=== PATIENT | female | born 1935 | race Caucasian/White ===

== ENCOUNTER 2019-07-17 12:27 | Outpatient (CLI) | payer MEDICARE, SELFPAY ==
--- NOTE | 2019-07-17 12:45 | USCV_ITS ---
Leon Jennifer Age: 84 Gender: F : 1935 Exam Date: 07/17/2019 12:47 Ordering Phys: Torrie Wright MD [email or web address] Technologist: Nuha Warren Exam Location: [facility] – [place] Indication: BRUIT Risk Factors: Unknown Previous Vascular Surgery: STENTS PACER Right Brachial BP: / Left Brachial BP: / Right Left Velocity (cm/s) Spectral Plaque Velocity (cm/s) Spectral Plaque Syst/Diast Broadening Syst/Diast Broadening 21.40/ 6.40 Prox CCA 112.30/ 26.80 13.95/ 4.65 Mid CCA 83.00 / 28.05 16.00/ 7.20 Distal CCA 84.20 / 26.80 293.10/84.70 Hetro Prox ICA 460.90/ 132.70 Hetro 384.50/81.20 Hetro Mid ICA 171.40/ 46.70 Hetro 188.00/53.10 Distal ICA 128.50/ 35.10 37.60 Hetro ECA 167.90 Hetro 26.87 ICA/CCA 5.56 Antegrade Vertebral Antegrade 47.30/ 14.90 cm/s 75.10/ 24.50 cm/s Tri Subclavian Bi 216.8 114.8 0 0 FINDINGS Severe atherosclerotic narrowing of both carotid bifurcations. Markedly elevated ICA velocities of 384.5 and 460.9 cm/sec, right and left respectively. Severely elevated ICA/CCA ratios 26.87 and 5.56, right and left respectively. CONCLUSIONS Bilateral 80-99% stenosis of the common carotid befurcations. Dr. Divya Lake MD (Electronically Signed) Final Date: 17 July 2019 13:22 S
== END 2019-07-17 12:28 | disposition home or self-care (01) ==
LOC: US 12:29
PROVIDERS: Family Provider Registered Nurse; PCP Registered Nurse; Visit Provider Internal Medicine Cardiovascular Disease
DX: I65.23 Occlusion and stenosis of bilateral carotid arteries (principal)
CPT/HCPCS: 93880

== ENCOUNTER 2019-07-29 12:59 | Outpatient (CLI) | payer MEDICARE, SELFPAY ==
--- NOTE | 2019-07-29 14:00 | CT_ITS ---
WS: [id number] CT ANGIOGRAM CAROTID ARTERIES HISTORY: bilateral carotid artery stenosis TECHNIQUE: CT angiogram is performed of the carotid arteries. During arterial injection imaging is ob tained from the skull base to the aortic arch in 1.25 mm imaging. Coronal and sagittal reformats are submitted, MIP imaging also reviewed. Additional multiplanar reformats of the carotid arteries are montalvo bmitted. NASCET criteria utilized. All CT scans at [facility] use at least one of these d ose optimization techniques: automated exposure control; mA and/or kV adjustment per patient size (in cludes targeted exams where dose is matched to clinical indication); or iterative reconstruction. CONTRAST: Visipaque 320; 95 mL IV. DLP: 874.65 mGycm COMPARISON: Carotid ultrasound 07/17/2019 Right carotid: Common carotid artery: Arises normally from the innominate. Small amount of circumferential intimal t hickening at the bifurcation. Internal carotid artery: Extremely high-grade stenosis involving the proximal ICA. There is a string sign present. Stenosis greater than 90%. Stenosis is predominantly due to intimal thickening with a s mall amount of calcified plaque. There is additional calcified plaque at the skull base with mild faby nosis approaching 50%. External carotid artery: Patent. Left carotid: Common carotid artery: Arises normally from the aortic arch. No significant stenosis. Internal carotid artery: Heavy intimal thickening is circumferential at the bifurcation. There is an additional high-grade stenosis at the origin of the LEFT ICA. Stenosis greater than 90%. External carotid artery: Patent. Right vertebral artery: Unremarkable. Left vertebral artery: Unremarkable. Arises normally from the left subclavian artery. Subclavian arteries: No stenosis or abnormality identified. Upper thorax: Normal. Thyroid gland: Subcentimeter RIGHT thyroid nodules. Osseous structures: Mild degenerative disc disease at C5-6. Skull base: No destructive lesions. Mild atherosclerosis intracranial carotid arteries. CT/CT angio neck 93543 IMPRESSION: 1. Bilateral high-grade proximal ICA stenosis, greater than 90%. Stenosis pred ominantly due to intimal thickening and soft plaque. Small amount of calcified plaque. Correlates with the recent ultrasound. 2. Mild atherosclerosis intracranial carotid arteries.
[2019-07-29 14:03] LABS: Blood Urea Nitrogen 20 mg/dL (8-23)
[2019-07-29] MEDS: iodixanol 320 mg/mL 100mL Btl IV (14:17)
== END 2019-07-29 13:00 | disposition home or self-care (01) ==
LOC: RADWPI 13:04
PROVIDERS: Family Provider Registered Nurse; PCP Registered Nurse; Visit Provider Internal Medicine Cardiovascular Disease
DX: I65.23 Occlusion and stenosis of bilateral carotid arteries (principal); E78.5 Hyperlipidemia, unspecified
CPT/HCPCS: 70498; 82565; 84520; Q9967

== ENCOUNTER 2019-08-07 12:24 | Inpatient (IN) | payer MEDICARE, SELFPAY ==
--- NOTE | 2019-08-05 10:12 | XR_ITS ---
WS: [id number] PORTABLE CHEST HISTORY: preop for carotid endarterectomy COMPARISON: 11/04/2018 Single lead LEFT subclavian pacer. Mild pulmonary hyperinflation and emphysema. No pneumonia. Normal vasculature. No pleural effusion or pneumothorax. Cardiac size: Mildly enlarged cardiac silhouette. Mediastinum/Aorta: Partially calcified aorta. No osseous abnormality seen. XR/XR chest 1V portable [id number] IMPRESSION: Chronic emphysema and cardiomegaly. No pneumonia.
[2019-08-05 10:36] LABS: Add Urine Microscopic? NO
[2019-08-05 10:44] VITALS: BMI 42.5
--- NOTE | 2019-08-05 11:20 | ANES.PREANE2 ---
Pre-Anesthetic Assessment Pre-Anesthetic Assessment: Height/Weight: Height 1.52 m Weight 98.883 kg Preop Diagnosis: carotid stenosis Proposed Procedure: Operation Date: 08/07/19 08:30 Proposed Procedures p Carotid Endarterectomy 58563/I65.21(Right) - Mani Medina MD Familial anesthetic complications: No trouble Social: Social History: No alcohol Comment: quit smoking on 2002 Exam: Pre-Anes Outpt Exam: alert, oriented x 3, clear to auscultation bilaterally and regular rate & rhythm Airway: Cervical ROM: WNL MP: 2 Additional comments: edentulous Pulmonary: Pulmonary: SOB CV/HEM: CV/HEM: Arrythmia, CAD and HTN Comments: pacemaker cardiomyopathy stents - last placed 2017 : : None reported Hepatic: Hepatic: Hepatitis Comments: Unsure of what type of hepatitis - was back in 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
[2019-08-05 11:40] LABS: Bilirubin Urine Neg (NEGATIVE); Blood Urine Neg (Negative); Glucose Urine UA Norm (Normal); Ketones Urine Negative (Negative); Leukocyte Esterase Urine Negative (Negative); Nitrate Urine Negative (Negative); Protein Urine Neg (Negative); Urine Appearance Clear (CLEAR); Urine Color Straw (Yellow); Urobilinogen Urine Norm (Negative)
[2019-08-05 13:16] LABS: Basophils # 0.1 10^3/uL (0.0-0.1); Basophils % 1.3 %; Eosinophils # 0.1 10^3/uL (0.0-0.8); Eosinophils % 2.6 %; Hematocrit 41.2 % (37.0-47.0); Hemoglobin 12.8 g/dL (11.5-15.3); Lymphocytes % 25.9 %; Mean Corpuscular HGB Conc 31.1 g/dL (30.0-36.0); Mean Corpuscular Hemoglobin 29.9 pg (28.0-34.0); Mean Corpuscular Volume 96.3 fL (81-99); Mean Platelet Volume 11.2 fL (7.4-10.4); Monocytes # 0.3 10^3/uL (0.2-0.9); Monocytes % 6.9 %; Neutrophils # 2.4 10^3/uL (1.8-7.7); Nucleated Red Blood Cells % 0 %; Platelet Count 193 10^3/cmm (130-400); Red Blood Count 4.28 10^6/uL (4.1-5.3); Red Cell Distribution Width 13.5 % (12.1-15.1); White Blood Count 3.8 10^3/uL (4.0-10.0)
[2019-08-05 13:17] LABS: INR 0.98 (0.8-1.2)
[2019-08-05 13:28] LABS: Anion Gap 15.5 (5-19); Blood Urea Nitrogen 28 mg/dL (8-23); Calcium 9.7 mg/dL (8.5-10.5); Carbon Dioxide 26 mmol/L (22-29); Chloride 103 mmol/L (98-107); Glucose 149 mg/dL (65-115); Osmolality Calculated 290 mOsm/kg (285-295); Potassium 4.5 mmol/L (3.5-5.1); Sodium 140 mmol/L (136-145)
[2019-08-07] VITALS (84 sets, daily range): BP systolic 62–115; BP diastolic 24–73; PULSE 58–71; RESP 11–25; TEMP 36.2–36.9; O2SAT 91–100
--- NOTE | 2019-08-07 07:11 | ECG_ITS ---
Measurements Intervals [place] Rate: 0 P: WI: 0 QRS: 0 QRSD: 0 T: 0 QT: 0 QTc: 0 V PACED RHYTHM WITH PVC WARNING: DATA QUALITY MAY AFFECT INTERPRETATION Compared to ECG 11/03/2018 18:50:47 Atrial fibrillation no longer present Myocardial infarct finding no longer present T-wave abnormality no longer present Possible ischemia no longer present Electronically Signed On 08-07-2019 17:44:58 CDT by Samanta Wayne M.D. [id number]
[2019-08-07] MEDS: lidocaine 1% INJ 20 mL INTRADERMA (07:52)
[2019-08-07] MEDS: sodium chloride 0.9% 1,000 ML 30 ML IV (07:52)
--- NOTE | 2019-08-07 08:28 | W.PM.OPSUD ---
Surgery/Procedure H&P Update DATE OF PROCEDURE: August 07, 2019 DATE H&P PERFORMED: 08/03/19 H&P UPDATE INFORMATION: I have reviewed H&P completed within last 30 days, I have examined patient prior to procedure and No changes to prior documentation PREOP DIAGNOSIS: carotid stenosis PRIMARY INDICATION FOR PROCEDURE: High-grade bilateral carotid artery stenosis of greater than 90%, with right ICA being visually greater than 95%. PLANNED PROCEDURE: Operation Date: 08/07/19 08:30 Proposed Procedures p Carotid Endarterectomy 70900/I65.21(Right) - Mani Medina MD
[2019-08-07] MEDS: heparin,porcine 1,000 unit/mL INJ 1 mL 1000 UNIT IRRIGATION (09:24)
[2019-08-07] MEDS: lidocaine 1% INJ 20 mL XX (09:24)
[2019-08-07] MEDS: vancomycin 1,000 MG SDV 1000 MG IRRIGATION (09:24)
--- NOTE | 2019-08-07 09:35 | SUR.OPER ---
Attempted to notify [facility] of surgery start. Unable to reach her at this time.
--- NOTE | 2019-08-07 11:30 | SUR.OPER ---
1125 - Attempted to updated Bridgette again. Still unable to reach her.
[2019-08-07] MEDS: ondansetron 2 mg/ML SDV 2 mL 4 MG IVP ×2 (12:43→13:15)
[2019-08-07] MEDS: lactated ringers 1,000 ML 75 ML IV (12:48)
[2019-08-07] MEDS: fentaNYL 50 mcg/mL INJ 2mL IVP (13:15)
--- NOTE | 2019-08-07 13:45 | PM.OP ---
Operative Report Date of procedure: August 07, 2019 Pre-op Diagnosis: carotid stenosis Post-op diagnosis: same Procedure Done: Right carotid endarterectomy with patch angioplasty Implants: Hemashield patch Specimens removed/disposition: Carotid plaque Surgeon: Mani Medina Anesthesia: General Estimated blood loss (mL): 100 Complications: None: Neurologically intact immediately postop Condition: stable Disposition: ICU Brief History: Pleasant 84-year-old female with high-grade bilateral carotid stenoses of greater than 90% and estimated at 95% or greater on the right side. Because of these high-grade lesions, staged carotid endarterectomies recommended to reduce her statistical risk for spontaneous CVA. Details the risk of the procedure were carefully and frankly discussed with her and her granddaughter. Appropriate consents have been reviewed and signed. Procedure: Ms. Quintero was placed on the OR table and underwent general endotracheal anesthesia with a neurological monitoring endotracheal tube as well as placement of a right radial arterial line. Bihemispheric monitoring pads were placed as well as grounding and sensing pads for nerve conduction evaluation during neck dissection.The entire upper chest and right neck were sterilely prepped and draped. Incision was made along the anterior border of the sternomastoid muscle and carried down to the platysma with cautery. Dissection from this point forward was carried out utilizing Metzenbaum scissors. The internal jugular vein was dissected free and the facial vein was ligated, oversewn, and divided. Dissection was continued down through the ansa cervicalis with preservation of major branches. Minor branches were divided if required to allow for adequate exposure. Nerve conduction evaluation was performed throughout the dissection for protection of the recurrent nerve. We subsequently reached the common carotid artery. Dissection was then continued proximally to distally across the bifurcation. Vessel loops were placed around the common carotid artery, internal carotid artery, and external carotid artery. Distally, the base of the hypoglossal nerve could be identified and was protected. The internal carotid artery disease went fairly high and extended above the level of the mandibular angle. This did require some traction in this region, but great care was taken to minimize pressure to the hypoglossal nerve, which was protected. Care was taken during this dissection to avoid injury to the vagus nerve. The patient was then heparinized with 10,000 units. ACT was measured and confirmed to be therapeutic. The systolic blood pressure was elevated to 160. Following this, in a rapid sequenced fashion, the distal internal carotid artery was clamped followed by clamping of the common carotid artery and external carotid artery. #11 scalpel blade was used to open the common carotid artery proximally. Stone scissors were then utilized to extend this arteriotomy across the distal common carotid artery and ulcerated very stenotic plaque and continue this further at the bifurcation across the calcific plaque in the internal carotid artery until we had reached normal intima. The internal carotid artery clamp was briefly flashed with evidence of brisk back bleeding, therefore we elected not to shunt. It should be noted that bi-hemispheric oximetry was recorded throughout the procedure. Next, a freer elevator was utilized to create a dissection plane the plaque from intima at the proximal portion of the arteriotomy. This was then divided with a #11 scalpel blade. This plaque was then further dissected along the intimal plane proximally to distally across the bifurcation. Utilizing an everting technique, plaque was removed from the external carotid artery with brisk flow. This plaque was then dissected free up the internal carotid artery to a feathered edge. Heparinized saline solution was utilized to remove any loose debris. Next, a Hemashield patch was brought into the field and sewn into position utilizing a running 6-0 Prolene suture, thereby completing our patch angioplasty. At the completion of the patch, the external carotid artery was opened followed by the common carotid artery and finally the internal carotid artery, thereby reestablishing cerebral flow. Areas of extravasation were repaired with 6-0 Prolene suture. After 5 minutes, heparin was reversed with protamine. Hemostasis was confirmed. The wound was irrigated with antibiotic solution. A small, flat, Rai-Watson drain was placed in the wound and connected to bulb suction. Sponge and needle count was correct. The wound was then closed in 2 layers of 3-0 Vicryl suture. Skin was reapproximated in a subcuticular manner with 4-0 Monocryl suture. A pressure dressing was then applied. She was awakened from anesthesia and spontaneous movement of all extremities as well as movement to command was noted. The patient was then transferred to the ICU in stable condition. We did contact her granddaughter by phone at completion of the procedure. Ms. Quintero will be monitored in the ICU for the next 24 hours.
[2019-08-07] MEDS: aspirin 325 mg Tablet PO (14:36)
[2019-08-07] MEDS: ceFAZolin 1,000 MG in sodium chloride 0.9% (plus) 50 ML 100 MG IV ×2 (17:24→23:48)
[2019-08-07] MEDS: sodium chloride 0.9% 1,000 ML 175 ML IV (17:44)
[2019-08-07] MEDS: albumin 12.5 GM/250 ML VIAL IV (20:28)
[2019-08-07] MEDS: HYDROcodone-acetaminophen 5-325 mg Tablet 1 TAB PO (23:49)
[2019-08-08] VITALS (71 sets, daily range): BP systolic 76–126; BP diastolic 26–70; PULSE 59–75; RESP 11–23; TEMP 36.6; O2SAT 89–99
[2019-08-08] MEDS: morphine 4 mg/mL SDV 1 mL 2 MG IVP (01:00)
[2019-08-08] MEDS: sodium chloride 0.9% 1,000 ML 175 ML IV (05:18)
[2019-08-08] MEDS: ceFAZolin 1,000 MG in sodium chloride 0.9% (plus) 50 ML 100 MG IV (07:46)
--- NOTE | 2019-08-08 07:51 | P.DS_ITS ---
Discharge Providers Date of Admission: 08/07/19 12:24 Date of Discharge: August 08, 2019 Attending Provider at Admission: Mani Medina MD Attending Provider at Discharge: Mani Medina MD Primary Care Provider: KENIA Jaquez Diagnoses at Discharge Discharge Diagnosis (1) Bilateral carotid artery stenosis: Status: Acute Problem details: Bilateral high-grade carotid artery stenoses of greater than 90% with greater than 95% stenosis on the right side. Reason for Visit Reason for Visit: Reason For Visit: BLOCKAGE Hospital Course Discharge Summary: Ms. Quintero was evaluated with bilateral carotid artery bruits with resultant duplex suggesting high grade stenosis. Subsequent CTA confirmed greater than 90% carotid stenoses bilaterally with a critical stenosis on the right side with near occlusion. She was carefully evaluated as an outpatient and scheduled for elective admission for planned staged carotid endarterectomies, initially on the right side. She was admitted yesterday and underwent right carotid endarterectomy with patch angioplasty. She was neurologically intact upon emergence from anesthesia. She was convalesced in the ICU where she remained neurologically stable and intact. No swallowing or phonation difficulties. Mild hypotension early postop responded well to fluid challenge. She has no complaints on the first postop day. Low PATRICIA drain output. PATRICIA drain was discontinued. Incision clean and dry. She has progressed well. She will be discharged to home with family support today in stable condition. Physical Exam Const: COMMON NORMALS: oriented x3 Neck/C-Spine: GENERAL: Yes normal visual inspection OTHER: Right neck incision is healing well with out swelling. No erythema or drainage. PATRICIA drain was discontinued. Neuro: COMMON NORMALS: oriented x3, no focal motor deficits and no sensory deficits noted Urinary Catheter Management^: Demarco: Cath Placed During This Visit: yes Reason for Continuing Indwelling Catheter: Accurate Measurement of Urinary Output in Critically Ill Patients Urinary Catheter Date of Insertion: 08/07/19 Urinary Catheter Time of Insertion: 09:10 Discharge Data Data Completed and Pending: Completed Studies During Hospitalization Category Date Time Status XR chest 1V erica ble [id number] Routine Exams 08/05/19 10:12 Completed Pending at discharge Category Date Time Status ABG FULL [Arteria l Blood Gas Full] Routine Lab 08/07/19 08:55 Ordered PRBC [Leukocyte R educed RBC] Routin e Lab 08/06/19 10:12 Results Type and Screen - Cardiac Routine Lab 08/05/19 11:06 Received Type and Screen R outine Lab 08/06/19 10:12 Results Pathology: Surgic al [PTH] Routine Pth 08/07/19 11:37 Received Labs from last 24 hours 08/05/19 11:06 Blood Type A Positive Rho(D) Type Positive Antibody Screen Negative Crossmatch See Detail Vitals: Last Vital Signs Temp 98.4 F 08/07/19 14:10 Pulse 63 08/08/19 07:40 Resp 21 H 08/08/19 07:40 BP 103/54 08/08/19 07:40 Pulse Ox 91 08/08/19 07:40 Discharge Plan Discharge Patient Disposition: Home, Self-Care Condition: Stable Prescriptions: New hydrocodone-acetaminophen 5-325 mg Tablet 1 tab PO Q6H PRN (Reason: Moderate Pain) Qty: 15 RF: 0 aspirin [Adult Low Dose Aspirin] 81 mg tablet,delayed release (DR/EC) 81 mg PO DAILY Qty: 100 RF: 0 Continued clopidogrel 75 mg tablet 75 mg PO DAILY RF: 0 carvedilol 12.5 mg tablet 12.5 mg PO BID RF: 0 Eliquis 2.5 mg tablet 2.5 mg PO BID RF: 0 multivitamin [Multiple Vitamins] Tablet 1 tab PO DAILY RF: 0 diphenhydramine HCl [Allergy (diphenhydramine)] 25 mg capsule 25 mg PO .BEDTIME RF: 0 lisinopril 40 mg tablet 40 mg PO DAILY Qty: 90 RF: 3 simvastatin 40 mg tablet 40 mg PO DAILY Qty: 90 RF: 0 potassium chloride [Klor-Con 10] 10 mEq tablet extended release 10 meq PO DAILY Qty: 90 RF: 0 furosemide 40 mg tablet 40 mg PO DAILY Qty: 90 RF: 3 Discharge Orders: Discharge Order (Routine); Ordered 08/08/19 Ordered By: Mani Medina Referrals: Mani Medina MD [Physician] - 1 week Discharge Diet: Usual diet Discharge Activity: Limit activity as instructed Activity Restrictions/Additional Instructions: No heavy lifting or pulling x2 weeks May remove bandage tomorrow and begin daily showers. No swimming or tub baths x2 weeks Report any fever, local swelling, redness, or drainage. May cover incision as desired. Report any weakness, visual changes, or difficulty speaking. Discharge Attestations Time Spent in Discharge Care*: less than 30 min Specific Discharge Activities: Specific discharge activities: educating patient, discussing with pcp/other providers, documenting/other paperwork and evaluating patient/reviewing data Status at Discharge: Cognitive status at discharge: cognitively intact , Behavioral status at discharge: cooperative , Functional status at discharge: independent ambulation Overall status at discharge: patient is back to baseline Quality Metrics Clinical Quality Measures During this hospital stay, did patient experience: None Coding Level of Care Code 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
[2019-08-08] MEDS: atorvastatin 40 mg Tablet 20 MG PO (10:31)
[2019-08-08] MEDS: lisinopril 20 mg Tablet 40 MG PO (10:31)
[2019-08-08] MEDS: clopidogrel 75 mg Tablet PO (10:32)
[2019-08-08] MEDS: pantoprazole DR 40 mg Tablet PO (10:32)
[2019-08-08] MEDS: HYDROcodone-acetaminophen 5-325 mg Tablet 1 TAB PO (10:32)
[2019-08-08] MEDS: multivitamin therapeutic Tablet 1 TAB PO (10:32)
[2019-08-08] MEDS: FUROsemide 40 mg Tablet PO (10:32)
[2019-08-08] MEDS: carvedilol 12.5 mg Tablet PO (10:33)
== END 2019-08-08 12:05 | disposition home or self-care (01) | DRG 39 ==
LOC: ICU 12:25
PROVIDERS: Admitting Provider Thoracic Surgery (Cardiothoracic Vascular Surgery); Family Provider Registered Nurse; PCP Registered Nurse; Visit Provider Thoracic Surgery (Cardiothoracic Vascular Surgery)
PROC: 03CM0ZZ Extirpation of Matter from Right External Carotid Artery, Open Approach (ICD-10-PCS; CPT 35301; principal; 2019-08-07 08:00)
DX: I65.23 Occlusion and stenosis of bilateral carotid arteries (principal); Z79.02 Long term (current) use of antithrombotics/antiplatelets
CPT/HCPCS: 12345; 36415; 51702; 71045; 80048; 81003; 85025; 85347; 85610; 86850; 86900; 86920; 88304; 93005; 96375; J0330; J0690; J1644; J2001; J2270; J2370; J2405; J2704; J2720; J3010; J3370; J7030; P9016; P9041; P9047

== ENCOUNTER 2019-09-09 12:30 | Outpatient (CLI) | payer MEDICARE, SELFPAY ==
--- NOTE | 2019-09-09 12:45 | USCV_ITS ---
Leon Jennifer Age: 84 Gender: F : 1935 Exam Date: 09/09/2019 12:40 Ordering Phys: Mani Medina MD ([email or web address] Technologist: Nuha Warren [place] [facility] [place]: PRIOR SURGERY ON RT CCA. RECHECKING LT SIDE TODAY Risk Factors: Previous Vascular Surgery: Right Brachial BP: / Left Brachial BP: / Right Left Velocity (cm/s) Spectral Plaque Velocity (cm/s) Spectral Plaque Syst/Diast Broadening Syst/Diast Broadening 79.40/ 13.20 Prox CCA 79.60 / 15.90 69.50/ 6.60 Mid CCA 57.10 / 12.40 59.50/ 9.90 Distal CCA 54.20 / 12.50 Hetro 145.70/36.00 Prox ICA 301.80/ 57.60 Hetro 93.60/ 22.50 Mid ICA 198.10/ 39.20 107.10/19.80 Distal ICA 129.00/ 28.90 46.60 ECA Hetro 2.10 ICA/CCA 5.29 Antegrade Vertebral Antegrade 35.40/ 9.30 cm/s 38.10/ 11.70 cm/s Tri Subclavian Tri 131.7 77.00 0 CONCLUSIONS Right ICA stenosis <50%. Prior right CEA. No recurrent stenosis Left ICA stenosis 70-99%. Moderate heterogeneous atheromatous plaque left carotid bulb/ICA. Normal antegrade Doppler flow noted in the right vertebral artery. Normal antegrade Doppler flow noted in the left vertebral artery. Victor Manuel Eason MD (Electronically Signed) Final Date: 09 Sep 2019 16:22 S
== END 2019-09-09 12:31 | disposition home or self-care (01) ==
LOC: RAD 12:33
PROVIDERS: Family Provider Registered Nurse; PCP Registered Nurse; Visit Provider Thoracic Surgery (Cardiothoracic Vascular Surgery)
DX: I65.23 Occlusion and stenosis of bilateral carotid arteries (principal)
CPT/HCPCS: 93880

== ENCOUNTER 2019-10-19 09:45 | Inpatient (IN) | payer MEDICARE, SELFPAY ==
[2019-10-14 10:59] VITALS: BMI 40.6
--- NOTE | 2019-10-14 11:32 | ANES.PREANE2 ---
Pre-Anesthetic Assessment Pre-Anesthetic Assessment: Height/Weight: Height 1.52 m Weight 94.347 kg Preop Diagnosis: carotid stenosis Proposed Procedure: Operation Date: 10/19/19 08:45 Proposed Procedures p Carotid Endarterectomy(Left) - Mani Medina MD Familial anesthetic complications: None Social: Social History: No alcohol and No tobacco Comment: former smoker Exam: Pre-Anes Outpt Exam: alert, oriented x 3, clear to auscultation bilaterally and regular rate & rhythm Airway: Cervical ROM: WNL MP: 3 Dentition: False Pulmonary: Pulmonary: None reported CV/HEM: CV/HEM: CAD (2019 (>1 year ago) -still on plavix (stoping today)) and HTN Comments: pacemaker - afib cardiomyopathy : : None reported Hepatic: Hepatic: None reported GI: GI: None reported Metabolic: Metabolic: None reported Musc/skel: Musc/skel: None reported Neuropsych: Comments: carotid stenosis (L side 90%) Anesthetic Plan: ASA status: 4 Anesthesia: General Risk of > 500 ml blood loss (7ml/kg in children): No PFSH Anesthesia PFSH: Medical History (Updated 10/08/19 @ 15:38 by Mani Medina MD) Atrial fibrillation Bilateral carotid artery stenosis Bilateral high-grade carotid artery stenoses of greater than 90% with greater than 95% stenosis on the right side. CAD (coronary artery disease) Cardiomyopathy Carotid stenosis, left Hyperlipidemia Hypertension Left carotid artery stenosis Leg swelling Pacemaker Surgical History History of hysterectomy Family History Other CAD (coronary artery disease) CHF (congestive heart failure) Social History Smoking and tobacco status: former smoker Alcohol intake: never Lives independently: Yes Household members: children Marital status: / Data Anesthesia Cardiac Studies: No Data to Display
[2019-10-19] VITALS (35 sets, daily range): BP systolic 70–117; BP diastolic 32–67; PULSE 60–71; RESP 11–24; TEMP 36.2; O2SAT 92–99
--- NOTE | 2019-10-19 06:12 | W.PM.OPSUD ---
Surgery/Procedure H&P Update DATE OF PROCEDURE: October 19, 2019 DATE H&P PERFORMED: 10/08/19 H&P UPDATE INFORMATION: I have reviewed H&P completed within last 30 days, I have examined patient prior to procedure and No changes to prior documentation PREOP DIAGNOSIS: Left carotid artery stenosis PRIMARY INDICATION FOR PROCEDURE: Left carotid artery stenosis PLANNED PROCEDURE: Operation Date: 10/19/19 07:00 Proposed Procedures p Carotid Endarterectomy(Left) - Mani Medina MD
[2019-10-19] MEDS: sodium chloride 0.9% 1,000 ML 30 ML IV ×2 (06:16→10:56)
[2019-10-19 06:17] LABS: Basophils # 0.1 10^3/uL (0.0-0.1); Eosinophils # 0.1 10^3/uL (0.0-0.8); Eosinophils % 2.7 %; Hematocrit 43.5 % (37.0-47.0); Hemoglobin 13.4 g/dL (11.5-15.3); Lymphocytes # 1.6 10^3/uL (0.8-4.8); Lymphocytes % 31.8 %; Mean Corpuscular HGB Conc 30.8 g/dL (30.0-36.0); Mean Corpuscular Volume 97.5 fL (81-99); Mean Platelet Volume 10.6 fL (7.4-10.4); Monocytes # 0.4 10^3/uL (0.2-0.9); Monocytes % 7.3 %; Neutrophils # 2.9 10^3/uL (1.8-7.7); Neutrophils % 56.8 %; Nucleated Red Blood Cells % 0 %; Platelet Count 212 10^3/cmm (130-400); Red Blood Count 4.46 10^6/uL (4.1-5.3); Red Cell Distribution Width 13.7 % (12.1-15.1); White Blood Count 5.1 10^3/uL (4.0-10.0)
[2019-10-19 06:25] LABS: Add Urine Culture? Yes; Add Urine Microscopic? YES; Bacteria Urine TRACE; Bilirubin Urine Neg (NEGATIVE); Blood Urine Neg (Negative); Glucose Urine UA Norm (Normal); Hyaline Casts Urine 0-4; Ketones Urine Negative (Negative); Leukocyte Esterase Urine 2+ (Negative); Mucus Urine TRACE; Nitrate Urine Negative (Negative); Protein Urine Neg (Negative); RBC Urine 0-4 /hpf (0-2); Squamous Epithelial Cell Urine 0-4 (0-5); Urine Appearance Clear (CLEAR); Urine Color Yellow (Yellow); Urobilinogen Urine Norm (Negative); WBC Urine 25-40 /hpf (0-5)
[2019-10-19 06:28] LABS: INR 0.94 (0.8-1.2)
[2019-10-19 06:31] LABS: Anion Gap 16.5 (5-19); Blood Urea Nitrogen 23 mg/dL (8-23); Calcium 9.6 mg/dL (8.5-10.5); Carbon Dioxide 25 mmol/L (22-29); Chloride 104 mmol/L (98-107); Glucose 143 mg/dL (65-115); Osmolality Calculated 291 mOsm/kg (285-295); Potassium 4.5 mmol/L (3.5-5.1); Sodium 141 mmol/L (136-145)
--- NOTE | 2019-10-19 06:57 | ANES.PROC ---
Anesthesia Procedures Procedure/Date: 10/19/19 Nerve Block ^: Nerve Block 1: Main Anesthesia: general anesthesia Time Out Performed: Yes Consent: requested by attending/covering physician and risks and benefits reviewed Nerve block location: interscalene (right) Anesthesia monitors applied: pulse oximetry, EKG, BP cuff and oxygen Nerve block position: semi sitting Anesthetic Used: ropivicaine 0.5% and with decadron (4mg) Amount of anesthesia used (mL): 30 Ultrasound used to: recognize landmarks Nerve Stimulator Used?: Yes Interscalene/Femoral BLK: 2 stimuplex 22 g needle used for position and inplane approach, visualize local anesthetic spread and no vascular puncture identified Injection: neg aspiration of heme Patient Tolerated Procedure: well and no complications Complications: none
[2019-10-19] MEDS: heparin, porcine 1,000 unit/mL INJ 10 mL 10000 UNIT INJECTION (07:50)
[2019-10-19] MEDS: vancomycin 1,000 MG SDV 1000 MG IRRIGATION (07:50)
--- NOTE | 2019-10-19 08:28 | SUR.OPER ---
LATE ENTRY FOR 08: NOTIFIED TRINITY TAYLOR GRANDDAUGHTER OF START OF PROCEDURE.
--- NOTE | 2019-10-19 10:35 | P.OP_ITS ---
Operative Report Date of procedure: October 19, 2019 Pre-op Diagnosis: Left carotid artery stenosis Procedure Done: Left carotid endarterectomy with patch angioplasty Implants: Hemashield patch Specimens removed/disposition: Left carotid artery plaque Anesthesia: General Complications: None: Grossly neurologically intact immediately postop Condition: stable Disposition: ICU Brief History: Ms. Quintero is an 84-year-old female who is now about 2 months status post right carotid endarterectomy. She originally presented with bilateral high-grade ICA stenoses of greater than 90%. She now represents for planned staged left carotid endarterectomy. Details and risks of surgery again carefully and frankly discussed. Proper consents have been reviewed and signed. Procedure: Ms. Quintero was placed on the OR table and underwent general endotracheal anesthesia with a neurological monitoring endotracheal tube as well as placement of a right radial arterial line. Bihemispheric monitoring pads were placed as well as grounding and sensing pads for nerve conduction evaluation during neck dissection.The entire upper chest and left neck were sterilely prepped and draped. Incision was made along the anterior border of the sternomastoid muscle and carried down to the platysma with cautery. Dissection from this point forward was carried out utilizing Metzenbaum scissors and limited use of bipolar cautery. The internal jugular vein was dissected free and the facial vein was ligated, oversewn, and divided. Dissection was continued down through the ansa cervicalis with preservation of major branches. Minor branches were divided if required to allow for adequate exposure. Nerve conduction evaluation was performed throughout the dissection for protection of the recurrent nerve. We subsequently reached the common carotid artery. Dissection was then continued proximally to distally across the bifurcation. Vessel loops were placed around the common carotid artery, internal carotid artery, and external carotid artery. Distally, the base of the hypoglossal nerve could be identified and was protected. The internal carotid artery disea se went fairly high and extended above the level of the mandibular angle. This did require some traction in this region, but great care was taken to minimize pressure to the hypoglossal nerve, which was protected. Care was taken during this dissection to avoid injury to the vagus nerve. The patient was then heparinized with 10,000 units. The systolic blood pressure was elevated to 160. Following this, in a rapid sequenced fashion, the distal internal carotid artery was clamped followed by clamping of the common carotid artery and external carotid artery. #11 scalpel blade was used to open the common carotid artery proximally. Stone scissors were then utilized to extend this arteriotomy across the distal common carotid artery and ulcerated very stenotic plaque and continue this further at the bifurcation across the calcific plaque in the internal carotid artery until we had reached normal intima. The internal carotid artery clamp was briefly flashed with evidence of brisk back bleeding, therefore we elected not to shunt. It should be noted that bi-hemispheric oximetry was recorded throughout the procedure. Next, a freer elevator was utilized to create a dissection plane the plaque from intima at the proximal portion of the arteriotomy. This was then divided with a #11 scalpel blade. This plaque was then further dissected along the intimal plane proximally to distally across the bifurcation. Utilizing an everting technique, plaque was removed from the external carotid artery with brisk flow. This plaque was then dissected free up the internal carotid artery to a feathered edge. Heparinized saline solution was utilized to remove any loose debris. Next, a Hemashield patch was brought into the field and sewn into position utilizing a running 6-0 Prolene suture, thereby completing our patch angioplasty. At the completion of the patch, the external carotid artery was opened followed by the common carotid artery and finally the internal carotid artery, thereby reestablishing cerebral flow. Areas of extravasation were repaired with 6-0 Prolene suture. After 5 minutes, heparin was reversed with protamine. Hemostasis was confirmed. The wound was irrigated with antibiotic solution. A small, flat, Rai-Watson drain was placed in the wound and connected to bulb suction. Sponge and needle count was correct. The wound was then closed in 2 layers of 3-0 Vicryl suture. Skin was reapproximated in a subcuticular manner with 4-0 Monocryl suture. A pressure dressing was then applied. The patient was awakened from anesthesia and spontaneous movement of all extremities as well as movement to command was noted. The patient was then transferred to the ICU in stable condition. I did guidance counselor with her granddaughter, Bridgette, by phone at completion of the procedure. She will be monitored in the ICU for the next 24 hours.
[2019-10-19] MEDS: ondansetron 2 mg/ML SDV 2 mL 4 MG IVP (10:58)
[2019-10-19] MEDS: lactated ringers 1,000 ML 100 ML IV ×2 (11:00→20:59)
--- NOTE | 2019-10-19 11:00 | PC.NURSE ---
RECEIVED PT FROM OR, AROUSABLE TO VERBAL STIMULI. ART LINE TO RIGHT RADIAL INTACT WITH PRESSURE BAG. SON DRAINING YELLOW URINE. SCD'S ON/WORKING. PIID X2 BILAT AC SPACES O2 PER SIMPLE MASK THEN SWITCHED TO 2L/NC. DRESSING TO LEFT NECK C/D/I WITH PATRICIA DRAIN.
[2019-10-19] MEDS: ketorolac 30 mg/mL INJ IVP (12:30)
[2019-10-19] MEDS: HYDROcodone-acetaminophen 5-325 mg Tablet 1 TAB PO (12:30)
--- NOTE | 2019-10-19 14:30 | PC.NURSE ---
POST OP FENTANYL THAT WAS PULLED & WASTED FROM PYXIS WAS NEVER ACCESSED OR GIVEN TO PT. FULL INTACT VIAL RETURNED TO PHARMACY.
[2019-10-19] MEDS: ceFAZolin 1,000 MG in sodium chloride 0.9% (plus) 50 ML 100 MG IV (15:45)
[2019-10-19] MEDS: aspirin 81 mg Chew Tablet 324 MG PO (16:56)
--- NOTE | 2019-10-19 17:31 | PC.NURSE ---
PT UP TO CHAIR FOR DINNER. TRANSFERRED WITH SBA. TOLERATED WELL. NO C/O VOICED. WATCHING TV
[2019-10-20] VITALS (28 sets, daily range): BP systolic 72–126; BP diastolic 39–71; PULSE 60–88; RESP 11–23; TEMP 36.6–37.1; O2SAT 87–97
[2019-10-20] MEDS: ceFAZolin 1,000 MG in sodium chloride 0.9% (plus) 50 ML 100 MG IV ×2 (01:12→06:36)
--- NOTE | 2019-10-20 06:29 | P.PN_ITS ---
Subjective Subjective: Interval history: Up in chair on rounds. No complaints. Neurologically intact. No swallowing or phonation difficulties. Afebrile. Vital signs stable. PATRICIA drain output 30 cc overnight. Vitals/I&O/Wt Last Vital Signs Temp 98.7 F 10/20/19 01:15 Pulse 88 10/20/19 03:48 Resp 17 10/20/19 01:15 BP 102/39 10/20/19 01:15 Pulse Ox 96 10/20/19 03:48 10/19/19 10/19/19 10/20/19 14:59 22:59 06:59 Intake Total 2610 / 2610 1588.333 / 4198.333 Output Total 150 / 150 780 / 930 220 / 1150 Balance 2460 / 2460 808.333 / 3268.333 -220 / 3048.333 Physical Exam HENMT: COMMON NORMALS: normocephalic HEAD & SCALP: normal to inspection and normocephalic Neck/C-Spine: GENERAL: Yes normal visual inspection (Left neck incision clean and dry. Minimal swelling. PATRICIA drain discontinued. Betadine applied and new dressing placed) Neuro: COMMON NORMALS: no focal motor deficits and no sensory deficits noted Urinary Catheter Management^: Demarco: Cath Placed During This Visit: yes Reason for Continuing Indwelling Catheter: Accurate Measurement of Urinary Output in Critically Ill Patients Urinary Catheter Date of Insertion: 10/19/19 Urinary Catheter Time of Insertion: 07:15 Data : 10/19/19 06:00 10/19/19 06:00 A&P Assessment and plan (1) Status post carotid endarterectomy: Postop day #1 status post left carotid endarterectomy. Recovering well. Neurologically intact. No phonation or swallowing difficulties. PATRICIA drain removed. Incision clean and dry. Plan: Discharged home today. Follow-up in my clinic in 1 week. Stable discharge. Status: Acute Attestations Medical Necessity Statement*: POD #1 status post left carotid endarterectomy Time Spent in Patient Care: 16 - 35 minutes Coding Level of Care Code Acute Family Resource Specialist for Susang Fwd Diagnoses Status post carotid endarterectomy Z98.890
[2019-10-20] MEDS: lactated ringers 1,000 ML 100 ML IV (06:36)
--- NOTE | 2019-10-20 06:36 | PM.DCS ---
Discharge Providers Date of Admission: 10/19/19 09:45 Date of Discharge: October 20, 2019 Attending Provider at Admission: Mani Medina MD Attending Provider at Discharge: Mani Medina MD Primary Care Provider: KENIA Jaquez Diagnoses at Discharge Discharge Diagnosis (1) Status post carotid endarterectomy: Status: Acute Reason for Visit Reason for Visit: carotid endarterectomy Hospital Course Discharge Summary: Ms. Quintero is an 84-year-old female with original presentation of bilateral high-grade carotid artery stenoses of over 90%. She is status post right carotid endarterectomy about 2 months and re-presented for planned staged left carotid endarterectomy for greater than 90% stenosis. She underwent left carotid endarterectomy yesterday October 18. She convalesced in the ICU where she remained neurologically intact. No swallowing difficulties. No phonation problems. She had low PATRICIA drain output. PATRICIA drain was discontinued this morning. Incision clean and dry. She is eager for discharge to home. She will be discharged today in stable condition with scheduled follow-up in my clinic in 1 week. Physical Exam HENMT: COMMON NORMALS: normocephalic HEAD & SCALP: normocephalic FACE & SINUS: normal facial exam Neck/C-Spine: GENERAL: Yes normal visual inspection (Incision clean and dry. PATRICIA drain removed without difficulty. No swelling.) Neuro: COMMON NORMALS: no focal motor deficits and no sensory deficits noted Urinary Catheter Management^: Demarco: Cath Placed During This Visit: yes Reason for Continuing Indwelling Catheter: Accurate Measurement of Urinary Output in Critically Ill Patients Urinary Catheter Date of Insertion: 10/19/19 Urinary Catheter Time of Insertion: 07:15 Discharge Data Data Completed and Pending: Pending at discharge Category Date Time Status Leukocyte Reduced RBC Routine Lab 10/19/19 06:00 Results Type and Screen R outine Lab 10/19/19 06:00 Results Urine Culture Rou jonah Lab 10/19/19 06:00 Received Pathology: Surgic al [PTH] Routine Pth 10/19/19 09:14 Received Labs from last 24 hours 10/19/19 06:00 Blood Type A Positive Rho(D) Type Positive Antibody Screen Negative Crossmatch See Detail Vitals: Last Vital Signs Temp 98.7 F 10/20/19 01:15 Pulse 88 10/20/19 03:48 Resp 17 10/20/19 01:15 BP 102/39 10/20/19 01:15 Pulse Ox 96 10/20/19 03:48 Discharge Plan Discharge Patient Disposition: Home, Self-Care Condition: Stable Prescriptions: Continued clopidogrel 75 mg tablet 75 mg PO DAILY RF: 0 multivitamin [Multiple Vitamins] Tablet 1 tab PO DAILY RF: 0 diphenhydramine HCl [Allergy (diphenhydramine)] 25 mg capsule 25 mg PO .BEDTIME RF: 0 lisinopril 40 mg tablet 40 mg PO DAILY Qty: 90 RF: 3 potassium chloride [Klor-Con 10] 10 mEq tablet extended release 10 meq PO DAILY Qty: 90 RF: 0 furosemide 40 mg tablet 40 mg PO DAILY Qty: 90 RF: 3 carvedilol 12.5 mg tablet See Rx Instructions .ROUTE .COMPLEX Qty: 30 RF: 0 simvastatin 40 mg tablet See Rx Instructions .ROUTE .COMPLEX Qty: 90 RF: 0 Eliquis 2.5 mg tablet 2.5 mg PO BID Qty: 180 RF: 3 aspirin [Adult Low Dose Aspirin] 81 mg tablet,delayed release (DR/EC) 81 mg PO DAILY Qty: 100 RF: 0 Discharge Orders: Discharge Order (Routine); Ordered 10/20/19 Ordered By: Mani Medina Referrals: Mani Medina MD [Physician] - 10/29/19 Discharge Diet: Advance as tolerated Discharge Activity: Limit activity as instructed Activity Restrictions/Additional Instructions: No heavy lifting or pulling x2 weeks May remove bandage tomorrow and begin daily showers as desired. Dry incision completely after showers. May cover incision as desired No swimming or tub baths x2 weeks May resume all home medications Discharge Attestations Time Spent in Discharge Care*: less than 30 min Specific Discharge Activities: Specific discharge activities: educating patient, discussing with pcp/other providers, documenting/other paperwork and evaluating patient/reviewing data Status at Discharge: Cognitive status at discharge: cognitively intact, Behavioral status at discharge: cooperative, Functional status at discharge: independent ambulation Overall status at discharge: patient is progressing back to baseline Quality Metrics Clinical Quality Measures During this hospital stay, did patient experience: None Coding Level of Care Code Acute Drying And Winding Supervisor for Iris Burroughs Diagnoses Status post carotid endarterectomy Z98.890
--- NOTE | 2019-10-20 07:46 | PC.NURSE ---
recd. sitting in chair. breakfast in. dressing to left neck area d/i
[2019-10-20] MEDS: FUROsemide 40 mg Tablet PO (08:04)
[2019-10-20] MEDS: lisinopril 20 mg Tablet 40 MG PO (08:04)
[2019-10-20] MEDS: pantoprazole DR 40 mg Tablet PO (08:04)
--- NOTE | 2019-10-20 08:56 | PC.NURSE ---
o2 sat 87-89 % while sleeping.
[2019-10-20 09:20] LABS: Alanine Aminotransferase 10 U/L (0-33); Albumin Level 4.6 g/dL (3.5-5.2); Alkaline Phosphatase 63 IU/L (35-105); Anion Gap 14.7 (5-19); Aspartate Amino Transferase 19 U/L (0-32); Blood Urea Nitrogen 11 mg/dL (8-23); Carbon Dioxide 26 mmol/L (22-29); Chloride 107 mmol/L (98-107); Globulin 2.6 g/dL (1.3-4.6); Glucose 85 mg/dL (65-115); Osmolality Calculated 293 mOsm/kg (285-295); Potassium 3.7 mmol/L (3.5-5.1); Sodium 144 mmol/L (136-145); Total Bilirubin 0.3 mg/dL (0.15-1.2); Total Protein 7.2 g/dL (6.6-8.7)
[2019-10-20 09:37] LABS: Eosinophils # 0.1 10^3/uL (0.0-0.8); Eosinophils % 3.3 %; Hematocrit 37.6 % (37.0-47.0); Lymphocytes % 32.4 %; Mean Corpuscular HGB Conc 31.9 g/dL (30.0-36.0); Mean Corpuscular Hemoglobin 32.7 pg (28.0-34.0); Mean Corpuscular Volume 102.5 fL (81-99); Mean Platelet Volume 10.6 fL (7.4-10.4); Monocytes # 0.3 10^3/uL (0.2-0.9); Monocytes % 8.4 %; Neutrophils # 1.7 10^3/uL (1.8-7.7); Neutrophils % 55.9 %; Nucleated Red Blood Cells % 0 %; Platelet Count 71 10^3/cmm (130-400); Red Blood Count 3.67 10^6/uL (4.1-5.3); Red Cell Distribution Width 14.6 % (12.1-15.1)
--- NOTE | 2019-10-20 10:12 | PC.NURSE ---
b/p 98/54 with manual cuff
--- NOTE | 2019-10-20 12:02 | PC.NURSE ---
1130 w/c to surg. services entrance with mask in place. discharged with daughter to home. bilateral ivs removed intact.
[2019-10-21 08:36] LABS: PROTEIN, TOTAL 6.6 g/dL (6.1-8.1)
[2019-10-21 12:21] LABS: ALBUMIN 3.9 g/dL (3.8-4.8); ALPHA 1 GLOBULIN 0.3 g/dL (0.2-0.3); ALPHA 2 GLOBULIN 0.7 g/dL (0.5-0.9); BETA 1 GLOBULIN 0.4 g/dL (0.4-0.6); BETA 2 GLOBULIN 0.4 g/dL (0.2-0.5); GAMMA GLOBULIN 1.1 g/dL (0.8-1.7)
[2019-10-21 16:06] LABS: KAPPA LIGHT CHAIN, FREE, SERUM 28.1 mg/L (3.3-19.4); KAPPA/LAMBDA LIGHT CHAINS FREE 1.72 (0.26-1.65); LAMBDA LIGHT CHAIN, FREE, SERU 16.3 mg/L (5.7-26.3)
== END 2019-10-20 13:09 | disposition home or self-care (01) | DRG 38 ==
LOC: ICU 09:47
PROVIDERS: Admitting Provider Thoracic Surgery (Cardiothoracic Vascular Surgery); PCP Registered Nurse; Visit Provider Thoracic Surgery (Cardiothoracic Vascular Surgery)
PROC: 03CL0ZZ Extirpation of Matter from Left Internal Carotid Artery, Open Approach (ICD-10-PCS; CPT 35301; principal; 2019-10-19 07:00)
DX: I65.22 Occlusion and stenosis of left carotid artery (principal); I42.9 Cardiomyopathy, unspecified; I48.91 Unspecified atrial fibrillation; I25.10 Atherosclerotic heart disease of native coronary artery without angina pectoris; E78.5 Hyperlipidemia, unspecified; I10 Essential (primary) hypertension; Z95.0 Presence of cardiac pacemaker; Z87.891 Personal history of nicotine dependence
CPT/HCPCS: 12345; 36415; 51702; 80048; 80053; 81001; 83883; 84155; 84165; 85025; 85610; 86850; 86900; 86920; 87086; 88304; 96375; J0690; J1644; J1885; J2001; J2405; J2704; J2710; J2720; J3010; J3370; J3490; J7030

== ENCOUNTER 2019-12-01 14:35 | Outpatient (CLI) | payer MEDICARE, SELFPAY ==
--- NOTE | 2019-12-01 15:00 | USCV_ITS ---
Leon Jennifer Age: 84 Gender: F : 1935 Exam Date: 12/01/2019 14:58 Ordering Phys: Mani Medina MD (Andy) ([email or web address] [place] Technologist: Jordan Salas Exam Location: [facility] [place] Indication: CAROTID STENOSIS Risk Factors: Previous Vascular Surgery: RT CEA LT CEA Right Brachial BP: / Left Brachial BP: / Right Left Velocity (cm/s) Spectral Plaque Velocity (cm/s) Spectral Plaque Syst/Diast Broadening Syst/Diast Broadening 93.70/ 8.80 Prox CCA 81.20 / 13.50 70.60/ 12.10 Mid CCA 115.70/ 13.10 68.40/ 14.00 Distal CCA 63.70 / 13.60 140.00/38.60 Prox ICA 152.50/ 28.90 172.50/45.10 Mid ICA 206.90/ 43.20 97.70/ 14.70 Distal ICA 179.90/ 30.60 151.20 ECA 91.10 2.44 ICA/CCA 1.79 Antegrade Vertebral Antegrade 39.60/ 12.50 cm/s 106.1/ 25.20 cm/s 0 Bi Subclavian Bi 172.2 94.80 0 FINDINGS Moderate to heavy heterogeneous plaques bilaterally at the bifurcations and internal carotid arteries Intimal thickening and minimal plaque in the common carotid arteries bilaterally Antegrade flow in the vertebral arteries bilaterally Near normal Doppler flow velocities in the external carotid arteries bilaterally Elevated velocity in the right subclavian artery CONCLUSIONS Moderate to heavy heterogeneous plaques bilaterally at the bifurcations and internal carotid arterieswith velocity elevation consistent with 50-79% stenosis. Elevated velocity in the right subclavian artery may suggest hemodynamically significant stenosis. Consider CTA, to better evaluate the aortic arch vessels and the distal ICA on the left side, if clinically indicated Dr Torrie Wright MD [facility] (Electronically Signed) Final Date: 03 December 2019 08:55 S
== END 2019-12-01 14:36 | disposition home or self-care (01) ==
LOC: RAD 14:39
PROVIDERS: PCP Registered Nurse; Visit Provider Thoracic Surgery (Cardiothoracic Vascular Surgery)
DX: I65.23 Occlusion and stenosis of bilateral carotid arteries (principal)
CPT/HCPCS: 93880

== ENCOUNTER → 2020-04-12 10:26 | Outpatient (BNVA) | payer MEDICARE, SELFPAY | PROVIDERS: PCP Registered Nurse; Visit Provider Internal Medicine Cardiovascular Disease | DX: E78.5 Hyperlipidemia, unspecified (principal) | CPT/HCPCS: 80061 ==

== ENCOUNTER 2020-06-06 09:55 | Outpatient (CLI) | payer MEDICARE, SELFPAY ==
--- NOTE | 2020-06-06 10:15 | USCV_ITS ---
Jennifer Quintero Age: 85 Gender: F : 1935 Exam Date: 06/06/2020 10:05 Ordering Phys: Mani Medina MD (Andy) ([email or web address] [place]) Technologist: Nuha Warren [place] [facility] [place]ication: BILATERAL CEAs 2019 Risk Factors: Unknown Previous Vascular Surgery: R CEA , L CEA Right Brachial BP: / Left Brachial BP: / Right Left Velocity (cm/s) Spectral Plaque Velocity (cm/s) Spectral Plaque Syst/Diast Broadening Syst/Diast Broadening 81.60/ 18.70 Prox CCA 76.30 / 19.10 65.10/ 13.20 Mid CCA 64.40 / 11.20 57.50/ 9.30 Distal CCA 59.30 / 13.30 Hetro 85.40/ 17.10 Prox ICA 175.20/ 34.40 124.90/35.50 Mid ICA 190.20/ 36.80 109.00/18.90 Distal ICA 190.20/ 32.70 132.80 ECA 75.70 1.92 ICA/CCA 2.95 Antegrade Vertebral Antegrade 37.00/ 10.20 cm/s 44.60/ 10.30 cm/s Tri Subclavian Bi 234.0 125.9 0 0 FINDINGS Comparison:. 12/01/19. Mild diffuse atherosclerosis and intimal thickening. Velocities are elevated bilaterally but no significant progression since the prior study. Bilateral antegrade vertebral arteries. CONCLUSIONS Right ICA stenosis 50-69%. Left ICA stenosis 50-69%. No interval change in stenosis since prior exam. Dr. Nita Quintero DO (Electronically Signed) Final Date: 06 June 2020 11:55 S
== END 2020-06-06 09:56 | disposition home or self-care (01) ==
LOC: US 10:00
PROVIDERS: PCP Registered Nurse; Visit Provider Thoracic Surgery (Cardiothoracic Vascular Surgery)
DX: I65.23 Occlusion and stenosis of bilateral carotid arteries (principal)
CPT/HCPCS: 93880

== ENCOUNTER → 2020-07-07 11:23 | Outpatient (BNVA) | payer MEDICARE, SELFPAY | PROVIDERS: PCP Registered Nurse; Visit Provider Nurse Practitioner Family | DX: I65.22 Occlusion and stenosis of left carotid artery (principal); E78.5 Hyperlipidemia, unspecified; I10 Essential (primary) hypertension; I25.5 Ischemic cardiomyopathy; I48.11 Longstanding persistent atrial fibrillation; I25.10 Atherosclerotic heart disease of native coronary artery without angina pectoris; Z87.891 Personal history of nicotine dependence | CPT/HCPCS: 80048; 85025 ==

== ENCOUNTER 2020-08-11 12:04 | Outpatient (CLI) | payer MEDICARE, SELFPAY ==
--- NOTE | 2020-08-11 12:30 | USCV_ITS ---
Jennifer Quintero Age: 85 Gender: F : 1935 Exam Date: 08/11/2020 12:42 Ordering Phys: Krystyna Richardson Technologist: Ibrahima Alicea [place] [facility] [place] Indication: ISCHEMIC CARDIOMYOPATHY BP: 123 / 73 HR: 47 Rhythm: Sinus Technical Quality: Adequate MEASUREMENTS (Male / Female) Normal Values 2D ECHO LV Diastolic Diameter PLAX 4.9 cm 4.2 - 5.9 / 3.9 - 5.3 cm LV Systolic Diameter PLAX 3.2 cm IVS Diastolic Thickness 1.1 cm 0.6 - 1.0 / 0.6 - 0.9 cm IVS Systolic Thickness 1.6 cm LVPW Diastolic Thickness 1.0 cm 0.6 - 1.0 / 0.6 - 0.9 cm LVPW Systolic Thickness 1.0 cm LVOT Diameter 2.0 cm LV Ejection Fraction 2D Teich 64.0 % LV Ejection Fraction MOD 2C 75.1 % LV Ejection Fraction 2C AL 75.8 % LA Diameter 4.4 cm LA Width 4.4 cm LA Height 5.6 cm RA Width 3.8 cm RA Height 4.8 cm Aorta at Sinotubular Diameter 2.5 cm M-MODE LV Diastolic Diameter MM 6.2 cm 4.2 - 5.9 / 3.9 - 5.3 cm LV Systolic Diameter MM 4.9 cm LV Ejection Fraction MM Teich 41.5 % IVS Diastolic Thickness MM 1.1 cm 0.6 - 1.0 / 0.6 - 0.9 cm IVS Systolic Thickness MM 1.4 cm LVPW Diastolic Thickness MM 1.2 cm 0.6 - 1.0 / 0.6 - 0.9 cm LVPW Systolic Thickness MM 1.9 cm RV Diastolic Diameter MM 1.4 cm Aortic Annulus Diameter 3.2 cm LA Ao Ratio MM 1.5 MV E Point Septal Separation 1.5 cm DOPPLER AV Peak Velocity 120.0 cm/s LVOT Peak Velocity 90.0 cm/s AV Area Cont Eq vti 2.6 cm squared AV Area Cont Eq pk 2.5 cm squared MV Area PHT 5.0 cm squared Mitral E to A Ratio 1.5 MV E' Velocity 62.2 cm/s Mitral E to MV E' Ratio 29.4 Mitral E to LV E' Lateral Ratio 38.2 Mitral E to LV E' Septal Ratio 23.9 TR Peak Velocity 202.0 cm/s TR Peak Gradient 16.3 mmHg PV Peak Velocity 89.0 cm/s FINDINGS Left Ventricle Moderately increased left ventricular cavity size. Moderately decreased left ventricular systolic function. Global left ventricular hypokinesis. Left ventricular ejection fraction is estimated at 45 %. Severely increased left ventricular filling pressure. Right Ventricle Normal right ventricular size. Catheter/pacemaker wire visualized in the right ventricle. Right Atrium Normal right atrial size. Catheter/pacemaker wire in the right atrial cavity. Left Atrium Moderately increased left atrial size. Mitral Valve Severely thickened mitral valve. Severe mitral annular calcification. No mitral valve stenosis. Moderate-severe mitral valve regurgitation. Aortic Valve Severe aortic valve calcification. Mild aortic valve stenosis, mean gradient 2.6 mmHg, CRISTI 2.6 cm squared. Tricuspid Valve Mild tricuspid valve regurgitation. Pulmonic Valve Structurally normal pulmonic valve without significant stenosis. There is no pulmonic regurgitation. Pericardium Normal pericardium without effusion. Aorta Normal ascending aorta dimension. CONCLUSIONS 1-Moderately increased left ventricular cavity size. Moderately decreased left ventricular systolic function. Global left ventricular hypokinesis. Left ventricular ejection fraction is estimated at 45 %. Severely increased left ventricular filling pressure. 2-Moderately increased left atrial size. 3-Severely thickened mitral valve. Severe mitral annular calcification. No mitral valve stenosis. Moderate-severe mitral valve regurgitation. 4-Severe aortic valve calcification. Mild aortic valve stenosis, mean gradient 2.6 mmHg, CRISTI 2.6 cm squared. 5-Mild tricuspid valve regurgitation. 6-There is no pericardial effusion. 7-Pulmonary artery systolic pressure is within normal limits. 8-Normal right ventricular size. Catheter/pacemaker wire visualized in the right ventricle. 9-When compared to the prior echocardiogram dated March 18, 2017 there appeared to be worsening of mitral valve regurgitation from mild to moderate to moderate to severe now Mo Fong MD (Electronically Signed) Final Date: 11 August 2020 22:59 S
== END 2020-08-11 12:05 | disposition home or self-care (01) ==
PROVIDERS: PCP Registered Nurse; Visit Provider Thoracic Surgery (Cardiothoracic Vascular Surgery)
DX: I25.5 Ischemic cardiomyopathy (principal); I08.3 Combined rheumatic disorders of mitral, aortic and tricuspid valves
CPT/HCPCS: 93306

== ENCOUNTER 2021-01-30 11:59 | Outpatient (CLI) | payer MEDICARE, SELFPAY ==
--- NOTE | 2021-01-30 12:11 | USCV_ITS ---
Jennifer Quintero Age: 86 Gender: F : 1935 Exam Date: 01/30/2021 12:26 Ordering Phys: Mani Medina MD (Andy) [email or web address] [place] Technologist: CASTRO [place] [facility] [place]ication: OCCLUSION AND STENOSIS OF BILATERAL CAROTIDS Risk Factors: Previous Vascular Surgery: R CEA, L CEA Right Brachial BP: / Left Brachial BP: / Right Left Velocity (cm/s) Spectral Plaque Velocity (cm/s) Spectral Plaque Syst/Diast Broadening Syst/Diast Broadening 57.90/ 8.00 Prox CCA 71.40 / 12.70 59.20/ 9.20 Mid CCA 82.80 / 17.10 52.00/ 7.30 Distal CCA 95.10 / 17.20 87.20/ 15.90 Prox ICA 134.90/ 31.40 91.70/ 17.70 Mid ICA 142.30/ 28.20 109.30/23.50 Distal ICA 183.00/ 27.13 133.10 ECA 99.70 1.85 ICA/CCA 2.25 Antegrade Vertebral Antegrade 45.80/ 16.30 cm/s 74.50/ 11.50 cm/s Tri Subclavian Bi 116.4 123.8 0 0 FINDINGS Comparison:. 06/06/20 Mixture of calcified and noncalcified plaque in the bifurcations. No progression since the prior exam. The velocities are slightly improved since the prior exam. Bilateral CEA's. Antegrade vertebral arteries. CONCLUSIONS Left ICA stenosis 50-69%. Right ICA stenosis < 50%. Velocities have slightly decreased since the prior exam. Dr. Nita Quintero DO (Electronically Signed) Final Date: 30 January 2021 15:41 S
== END 2021-01-30 12:00 | disposition home or self-care (01) ==
LOC: US 12:03
PROVIDERS: PCP Registered Nurse; Visit Provider Thoracic Surgery (Cardiothoracic Vascular Surgery)
DX: I65.23 Occlusion and stenosis of bilateral carotid arteries (principal)
CPT/HCPCS: 93880

== ENCOUNTER → 2021-02-16 12:05 | Outpatient (BNVA) | payer MEDICARE, SELFPAY | PROVIDERS: PCP Registered Nurse; Visit Provider Internal Medicine Cardiovascular Disease | DX: I11.0 Hypertensive heart disease with heart failure (principal); I50.33 Acute on chronic diastolic (congestive) heart failure; R06.02 Shortness of breath; I25.5 Ischemic cardiomyopathy; I25.10 Atherosclerotic heart disease of native coronary artery without angina pectoris; I65.22 Occlusion and stenosis of left carotid artery; E78.2 Mixed hyperlipidemia; I48.11 Longstanding persistent atrial fibrillation; Z87.891 Personal history of nicotine dependence | CPT/HCPCS: 80048; 83880 ==

== ENCOUNTER 2022-01-23 14:58 | Inpatient (IN) | payer MEDICARE, SELFPAY ==
[2022-01-23] VITALS (16 sets, daily range): BP systolic 115–150; BP diastolic 44–79; PULSE 59–75; RESP 16–34; TEMP 36.7–38.8; O2SAT 87–98; BMI 39.0
--- NOTE | 2022-01-23 15:06 | ECG_ITS ---
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 Measurements Intervals [place] Rate: 60 P: ME: QRS: -75 QRSD: 178 T: 156 QT: 460 QTc: 460 Interpretive Statements ELECTRONIC VENTRICULAR PACEMAKER ABNORMAL RHYTHM ECG Compared to ECG 08/07/2019 07:50:10 Ventricular premature complex(es) no longer present Electronically Signed On 01-23-2022 20:44:18 CDT by Torrie Wright M.D. [email or web address]
[2022-01-23 15:17] LABS: Basophils % 0.3 %; Hematocrit 41.2 % (37.0-47.0); Hemoglobin 13.1 g/dL (11.5-15.3); Lymphocytes # 1.2 10^3/uL (0.8-4.8); Lymphocytes % 11.9 %; Mean Corpuscular HGB Conc 31.8 g/dL (30.0-36.0); Mean Corpuscular Hemoglobin 28.7 pg (28.0-34.0); Mean Corpuscular Volume 90.2 fl (81-99); Monocytes # 0.6 10^3/uL (0.2-0.9); Monocytes % 5.5 %; Neutrophils # 8.41 10^3/uL (1.8-7.7); Neutrophils % 81.8 %; Nucleated Red Blood Cells % 0 %; Platelet Count 246 10^3/cmm (130-400); Red Blood Count 4.57 10^6/uL (4.1-5.3); Red Cell Distribution Width 13.8 % (12.1-15.1); White Blood Count 10.3 10^3/uL (4.0-10.0)
[2022-01-23 15:28] LABS: ABG PCO2 31.9 mmHg (35-45); ABG PH Result 7.48 (7.35-7.45); Alveolar-Arterial Oxygen Gradi 4.3 mmHg (5-10); Arterial Blood Gas Hematocrit 39.9 % (37-47); Base Excess ABG 0.8 mmol/L (-2.0-2.0); Blood Gas Allen Test Pos; Blood Gas Operator Identificat CAK; Blood Gas Sample Site Brachial, left; Blood Gas Sample Type Arterial; HCO3 ABG 23.7 mmol/L (22-26); Ionized Calcium Level - ABG 1.1 mmol/L (1.1-1.4); Methemoglobin 0.4 % (0.4-1.5); Oxygen Device NRB; Oxygen Saturation ABG 97.4; PO2 ABG 75.7 mmHg (80.0-100.0); Potassium Level - ABG 4.1 mmol/L (3.5-5.0)
[2022-01-23 15:38] LABS: Alanine Aminotransferase 7 U/L (0-33); Albumin Level 3.1 g/dL (3.5-5.2); Alkaline Phosphatase 102 U/L (35-105); Anion Gap 19.1 (5-19); Aspartate Amino Transferase 21 U/L (0-32); Blood Urea Nitrogen 17 mg/dL (8-23); Calcium 8.9 mg/dL (8.5-10.5); Carbon Dioxide 22 mmol/L (22-29); Chloride 94 mmol/L (98-107); Creatine Phosphokinase 58 U/L (26-192); Globulin 3.9 g/dL (1.3-4.6); Glucose 209 mg/dL (65-115); Osmolality Calculated 280 mOsm/kg (285-295); Potassium 4.1 mmol/L (3.5-5.1); Sodium 131 mmol/L (136-145); Total Bilirubin 1.1 mg/dL (0.15-1.2)
[2022-01-23 15:39] LABS: Lactic Sepsis W/Reflex 1.6 mmol/L (0.5-2.2)
--- NOTE | 2022-01-23 15:40 | PC.NURSE ---
PT PLACED ON CONTINUOUS NIBP, SPO2, AND CM
--- NOTE | 2022-01-23 15:43 | ED_ITS ---
HPI - SOB/Dyspnea General: Chief Complaint: Shortness of Breath/Dyspnea Stated Complaint: SOB/ RESPIRATORY DISTRESS Time Seen by Provider: 01/23/22 15:03 Source: patient Mode of arrival: ambulatory History of Present Illness: HPI Narrative: 87 yo female presents emergency room complaining of increasing shortness of breath and productive cough over the last week. She normally does not use oxygen she was 70% on room air on arrival here she is in the low 90s on 15 L by nonrebreather. We were able to titrate her down briefly but then she began to desat again and required. Has had a low-grade fever fatigue initially began with some diarrhea. MD elicited complaint: shortness of breath and cough Pertinent past history: COPD Onset (ago): week(s) (1) Timing: constant Severity: mild Exacerbating factors: nothing Relieving factors: nothing Known history of: COPD Associated symptoms: Deny abdominal pain, chest congestion, chest pain, cough, diaphoresis, dizziness, extremity pain, fever(s), hemoptysis, lightheadedness, myalgias, nausea, orthopnea, palpitations, paresthesias, polydipsia, polyuria, rash, sense of impending doom, syncope or vomiting Review of Systems Const: Denies: fever(s), chills, fatigue, malaise or diaphoresis ENMT: Denies: throat pain, ear or mastoid pain, nasal discharge or nasal congestion Card: Denies: chest pain, palpitations, lightheadedness, syncope or orthopnea Resp: Reports: dyspnea and productive cough; Denies: hemoptysis or chest congestion GI: Denies: abdominal pain, nausea or vomiting : Denies: flank pain, difficulty voiding, dysuria, urinary frequency or urinary urgency Musc: Denies: neck pain, back pain or extremity pain Skin/Breast: Denies: rash or pruritus Neuro: Denies: dizziness Endo: Denies: polyuria or polydipsia PFSH ED PFSH: Medical History Atrial fibrillation Bilateral carotid artery stenosis Bilateral high-grade carotid artery stenoses of greater than 90% with greater than 95% stenosis on the right side. CAD (coronary artery disease) Cardiomyopathy Carotid stenosis, left Hyperlipidemia Hypertension Left carotid artery stenosis Leg swelling Pacemaker Surgical History H/O cataract extraction History of hysterectomy Hx of appendectomy S/P PTCA (percutaneous transluminal coronary angioplasty) Status cardiac pacemaker Status post carotid endarterectomy Family History Grandfather Clotting disorder Bleeding disorder Mother CAD (coronary artery disease) Diabetes Stroke Sister CAD (coronary artery disease) Diabetes Lung disease Sister CAD (coronary artery disease) Daughter CAD (coronary artery disease) Lung disease Stroke Brother CAD (coronary artery disease) Lung disease Family/Other Chronic kidney disease (CKD) Diabetes Lung disease Father Cancer Lung disease Other CHF (congestive heart failure) Denies family history of Dementia Suicide Anesthesia complication Social History Smoking and tobacco status: former smoker Alcohol intake: never Lives independently: Yes Household members: children Marital status: / Physical Exam Const: GENERAL APPEARANCE: cooperative and comfortable ORIENTATION/CONSCIOUSNESS: Yes awake, Yes oriented to person, Yes oriented to place and Yes oriented to time HENMT: COMMON NORMALS: normocephalic, atraumatic and hearing grossly normal bilaterally HEAD & SCALP: normocephalic and atraumatic Resp: AUSCULTATION: rales and wheezes Cardio: COMMON NORMALS: regular rate, regular rhythm and No murmurs present (Cardio) RATE: regular rate RHYTHM: regular rhythm GI: COMMON NORMALS: Soft to palpation and No hepatosplenomegaly present AUSCULTATION: Yes normoactive bowel sounds PALPATION: Yes Soft to palpation, No Tenderness to palpation present (GI), No Guarding due to palpation present (GI) and Yes No hepatosplenomegaly present Extremity: COMMON NORMALS: normal to inspection, capillary refill normal, no clubbing, cyanosis or edema, no calf tenderness and no pedal edema Neuro: SENSORIUM/ORIENTATION: Yes oriented to person, Yes oriented to place and Yes oriented to time Skin: COMMON NORMALS: no rashes or lesions noted GENERAL SKIN EXAM: no rashes or lesions noted Course Vital Signs: Vital signs: Vital Signs Temperature 97.9 F 01/27/22 04:00 Pulse Rate 72 01/27/22 04:48 Respiratory Rate 28 H 01/27/22 04:00 Blood Pressure 122/70 01/27/22 04:00 Pulse Oximetry 94 01/27/22 04:48 Oxygen Delivery Me thod 01/26/22 21:00 Oxygen Flow Rate 15 01/26/22 20:00 Fraction of Inspir ed Oxygen 70 01/27/22 04:48 MDM - SOB/Dyspnea Medical Decision Making COVID-pneumonia with acute respiratory failure with hypoxia admit discussed with hospitalist orders written Medical Records I reviewed the patient's medical records. Lab Data I reviewed the patient's lab results. : 01/27/22 03:46 01/27/22 03:46 Labs/Radiology: Radiology Impressions Chest X-Ray 01/23/22 16:02 IMPRESSION: 1. Congestive heart failure pattern. Chest CTA 01/26/22 09:09 IMPRESSION: 1. A few tiny filling defects in the distal RIGHT lower lobe distal pulmonary arteries suspicious for tiny pulmonary embolus. Proximal main pulmonary arteries are normal. 2. Diffuse hazy groundglass infiltrates throughout both lungs compatible with C ovid 19 pneumonia. 3. Cardiomegaly with reflux into the hepatic veins suspicious for RIGHT heart dysfunction. Notified Mo Wiley MD at 01/26/2022 11:41 AM. Laboratory Results WBC 10.3 10^3/uL (4.0-10.0) H 01/23/22 15:06 RBC 4.57 10^6/uL (4.1-5.3) 01/23/22 15:06 Hgb 13.1 g/dL (11.5-15.3) 01/23/22 15:06 Hct 41.2 % (37.0-47.0) 01/23/22 15:06 MCV 90.2 fl (81-99) 01/23/22 15:06 MCH 28.7 pg (28.0-34.0) 01/23/22 15:06 MCHC 31.8 g/dL (30.0-36.0) 01/23/22 15:06 RDW 13.8 % (12.1-15.1) 01/23/22 15:06 Plt Count 246 10^3/cmm (130-400) 01/23/22 15:06 MPV 11.0 fL (7.4-10.4) H 01/23/22 15:06 Neut % (Auto) 81.8 % 01/23/22 15:06 Lymph % (Auto) 11.9 % 01/23/22 15:06 [place] % (Auto) 5.5 % 01/23/22 15:06 Eos % (Auto) 0.0 % 01/23/22 15:06 Baso % (Auto) 0.3 % 01/23/22 15:06 Neut # (Auto) 8.41 10^3/uL (1.8-7.7) H 01/23/22 15:06 Lymph # (Auto) 1.2 10^3/uL (0.8-4.8) 01/23/22 15:06 [place] # (Auto) 0.6 10^3/uL (0.2-0.9) 01/23/22 15:06 Eos # (Auto) 0.0 10^3/uL (0.0-0.8) 01/23/22 15:06 Baso # (Auto) 0.0 10^3/uL (0.0-0.1) 01/23/22 15:06 Nucleated RBC % (auto) 0 % 01/23/22 15:06 Nucleated RBCs # 0.0 /100WBC 01/23/22 15:06 Specimen Type Arterial 01/23/22 15:17 Sample Site Brachial, left 01/23/22 15:17 ABG pH 7.48 (7.35-7.45) H 01/23/22 15:17 ABG pCO2 31.9 mmHg (35-45) L 01/23/22 15:17 ABG pO2 75.7 mmHg (80.0-100.0) L 01/23/22 15:17 ABG HCO3 23.7 mmol/L (22-26) 01/23/22 15:17 ABG O2 Saturation 97.4 01/23/22 15:17 ABG Base Excess 0.8 mmol/L (-2.0-2.0) 01/23/22 15:17 El Test Pos 01/23/22 15:17 A-a O2 Gradient 4.3 mmHg (5-10) L 01/23/22 15:17 Hematocrit 39.9 % (37-47) 01/23/22 15:17 Hgb O2 Saturation 95.0 % (95-100) 01/23/22 15:17 Carboxyhemoglobin 2.0 %THgb (0.4-20.1) 01/23/22 15:17 Methemoglobin 0.4 % (0.4-1.5) 01/23/22 15:17 Total Hemoglobin 13.0 g/dL (12-16) 01/23/22 15:17 Sodium 132.0 mmol/L (131-143) 01/23/22 15:17 Potassium 4.1 mmol/L (3.5-5.0) 01/23/22 15:17 Glucose 203.0 mg/dL (70-115) H 01/23/22 15:17 Ionized Calcium 1.1 mmol/L (1.1-1.4) 01/23/22 15:17 O2 Delivery Device Nrb 01/23/22 15:17 O2 Liters/Min 15.0 % 01/23/22 15:17 Cmm Operator ID Cak 01/23/22 15:17 Sodium 131 mmol/L (136-145) L 01/23/22 15:06 Potassium 4.1 mmol/L (3.5-5.1) 01/23/22 15:06 Chloride 94 mmol/L (98-107) L 01/23/22 15:06 Carbon Dioxide 22 mmol/L (22-29) 01/23/22 15:06 Anion Gap 19.1 (5-19) H 01/23/22 15:06 BUN 17 mg/dL (8-23) 01/23/22 15:06 Creatinine 1.1 mg/dL (0.5-0.9) H 01/23/22 15:06 GFR Calculation Not Reportable 01/23/22 15:06 Glucose 209 mg/dL (65-115) H 01/23/22 15:06 Calculated Osmolality 280 mOsm/kg (285-295) L 01/23/22 15:06 Lactic Acid 1.6 mmol/L (0.5-2.2) 01/23/22 15:10 Calcium 8.9 mg/dL (8.5-10.5) 01/23/22 15:06 Total Bilirubin 1.1 mg/dL (0.15-1.2) 01/23/22 15:06 AST 21 U/L (0-32) 01/23/22 15:06 ALT 7 U/L (0-33) 01/23/22 15:06 Alkaline Phosphatase 102 U/L (35-105) 01/23/22 15:06 Creatine Kinase 58 U/L (26-192) 01/23/22 15:06 Total Protein 7.0 g/dL (6.6-8.7) 01/23/22 15:06 Albumin 3.1 g/dL (3.5-5.2) L 01/23/22 15:06 Globulin 3.9 g/dL (1.3-4.6) 01/23/22 15:06 Coronavirus 229E (PCR) Not detected (NOT DETECT) 01/23/22 15:15 SARS-CoV-2 (PCR) Detected (NOT DETECT) A 01/23/22 15:15 Discharge Plan Discharge Patient Disposition: Admitted As Inpatient Admit Provider: Mo Wiley Clinical Impression: COVID, Cardiomyopathy, Atrial fibrillation, Hypertension, CAD (coronary artery disease), Acute respiratory failure with hypoxia Condition: Stable Coding Level of Care Code ED Measurement Superintendent for Chg Fwd Exam Detailed
--- NOTE | 2022-01-23 16:02 | XRR_ITS ---
PROCEDURE INFORMATION: Exam: XR Chest Exam date and time: 01/23/2022 4:16 PM Age: 87 years old Clinical indication: Cough and dyspnea; Additional info: Dyspnea/cough TECHNIQUE: Imaging protocol: Radiologic exam of the chest. Views: 1 view. COMPARISON: CR XR chest 1V portable [id number] 08/05/2019 10:29 AM FINDINGS: Tubes, catheters and devices: Intact Single lead left subclavian pacemaker. Lungs: Vascular congestion. Diffuse interstitial and central ground-glass opacities in both lungs, consistent with pulmonary edema. Pleural spaces: Small bilateral pleural effusions suspected. No pneumothorax. Heart/Mediastinum: Mild cardiomegaly. Bones/joints: Unremarkable. XR/XR chest 1V portable [id number] IMPRESSION: 1. Congestive heart failure pattern.
[2022-01-23] MEDS: levofloxacin-dextrose 5 % 750 MG/150 ML PREMIX 100 MG IV (16:54)
[2022-01-23] MEDS: ipratropium-albuterol 3 mL Neb INHALATION (16:55)
[2022-01-23 17:10] LABS: Adenovirus Not Detected (NOT DETECT); Chlamydia Pneumoniae Not Detected (NOT DETECT); Coronavirus 229E,HKU1,NL63,OC4 Not Detected (NOT DETECT); Human Metapneumovirus Not Detected (NOT DETECT); Human Rhinovirus/Enterovirus Not Detected (NOT DETECT); Influenza A Not Detected (NOT DETECT); Influenza A H1 Not Detected (NOT DETECT); Influenza A H1-2009 Not Detected (NOT DETECT); Influenza A H3 Not Detected (NOT DETECT); Influenza B Not Detected (NOT DETECT); Mycoplasma Pneumoniae Not Detected (NOT DETECT); Parainfluenza Virus Type 1 Not Detected (NOT DETECT); Parainfluenza Virus Type 2 Not Detected (NOT DETECT); Parainfluenza Virus Type 3 Not Detected (NOT DETECT); Parainfluenza Virus Type 4 Not Detected (NOT DETECT); Respiratory Syncytial Virus A Not Detected (NOT DETECT); Respiratory Syncytial Virus B Not Detected (NOT DETECT); SARS-COV-2 Detected (NOT DETECT)
--- NOTE | 2022-01-23 17:22 | PM.HP ---
Providers/Chief Complaint Primary Care Provider: KENIA Jaquez Chief Complaint: SOB/ RESPIRATORY DISTRESS History of Present Illness Jennifer Quintero is a 87 year old female with history of cardiomyopathy, congestive heart failure, A. fib, chronic anticoagulation with Eliquis, not on oxygen at home, presented to hospital with chief complaint of shortness of breath. Patient has been experiencing shortness of breath for 10 days. She has not noticed chest pain, diarrhea or vomiting but she is endorsing low-grade fevers at home. She is extremely fatigued and lethargic. She is vaccinated for COVID-19. In the ER she has been diagnosed with COVID-19 and chest x-ray showing groundglass opacities. She does take Lasix at home clinically she looks compensated. She was on 15 L nonrebreather mask and saturating 89 to 90% I recommended BiPAP. Her symptoms started 10 days ago, low-grade fever noted by her daughters Review of Systems Const: Reports: fever(s), chills and body aches Eyes: Denies: change in vision ENMT: Denies: throat pain Card: Reports: swelling of feet/ankles, dyspnea on exertion and orthopnea; Denies: chest pain Resp: Reports: dyspnea GI: Denies: abdominal pain : Denies: flank pain Musc: Denies: neck pain Skin/Breast: Denies: rash Neuro: Denies: headache(s) Psych: Reports: anxiety Endo: Denies: polyuria Michael/Lymph: Denies: easy bruising All/Imm: Denies: urticaria Medications/Allergies Home Medications Medication Instructions Recorded Confirmed Last Taken Type diphenhydramine HCl 25 mg capsule 25 mg PO BEDTIME 06/29/19 01/23/22 01/22/22 History (Allergy (diphenhydramine)) carvedilol 12.5 mg tablet 12.5 mg PO BID #180 tabs 06/19/21 01/23/22 01/23/22 Rx apixaban 2.5 mg tablet (Eliquis) 2.5 mg PO BID #180 tabs 07/24/21 01/23/22 01/23/22 Rx furosemide 40 mg tablet See Rx Instructions .Route 10/23/21 01/23/22 01/23/22 Rx .COMPLEX #120 tabs clopidogrel 75 mg tablet 75 mg PO QAM 01/23/22 01/23/22 01/23/22 History ulelcrcpytsh-ornosilf-mlqydf tablet 1 tab PO QAM 01/23/22 01/23/22 01/23/22 History nitroglycerin 0.4 mg sublingual 0.4 mg sublingual Q5M PRN Chest 01/23/22 01/23/22 Unknown History tablet (Nitrostat) Pain potassium chloride 10 mEq 10 meq PO QAM 01/23/22 01/23/22 01/23/22 History tablet,extended release simvastatin 80 mg tablet 80 mg PO BEDTIME 01/23/22 01/23/22 01/22/22 History vit C 250 mg-vit E 90 mg-zinc 40 1 tab PO BID 01/23/22 01/23/22 01/23/22 History mg-copper 1 bp-wzdozl-dfhsti capsule (PreserVision AREDS-2) Allergies Allergy/AdvReac Type Severity Reaction Status Date / Time beet Allergy Unknown unknown Verified 01/23/22 16:30 ryan Allergy Unknown unknown Verified 01/23/22 16:30 pineapple Allergy Unknown unknown Verified 01/23/22 16:30 Sulfa (Sulfonamide Allergy Unknown Unknown Verified 01/23/22 16:30 Antibiotics) ammonia Allergy ALGY-Anaphy Verified 01/23/22 16:30 laxis chlorine Allergy Unknown Uncoded 01/23/22 16:30 PFSH Acute PFSH: Medical History (Updated 01/23/22 @ 20:01 by Mo Wiley MD) Atrial fibrillation Bilateral carotid artery stenosis Bilateral high-grade carotid artery stenoses of greater than 90% with greater than 95% stenosis on the right side. CAD (coronary artery disease) Cardiomyopathy Carotid stenosis, left Hyperlipidemia Hypertension Left carotid artery stenosis Leg swelling Pacemaker Surgical History (Updated 01/23/22 @ 20:01 by Mo Wiley MD) H/O cataract extraction History of hysterectomy Hx of appendectomy S/P PTCA (percutaneous transluminal coronary angioplasty) Status cardiac pacemaker Status post carotid endarterectomy Family History Grandfather Clotting disorder Bleeding disorder Mother CAD (coronary artery disease) Diabetes Stroke Sister CAD (coronary artery disease) Diabetes Lung disease Sister CAD (coronary artery disease) Daughter CAD (coronary artery disease) Lung disease Stroke Brother CAD (coronary artery disease) Lung disease Family/Other Chronic kidney disease (CKD) Diabetes Lung disease Father Cancer Lung disease Other CHF (congestive heart failure) Denies family history of Dementia Suicide Anesthesia complication Social History Smoking and tobacco status: former smoker Alcohol intake: never Lives independently: Yes Household members: children Marital status: / Vitals/I&O/Wt Last Vital Signs Temp 98.1 F 01/23/22 15:12 Pulse 60 01/23/22 16:59 Resp 16 01/23/22 16:56 BP 139/54 01/23/22 16:55 Pulse Ox 87 L 01/23/22 16:56 O2 Del Method 01/23/22 16:56 O2 Flow Rate 6 01/23/22 16:56 Weight last 48 hrs Weight 90.718 kg Weight 90.718 kg Physical Exam Narrative: Morbidly obese female Currently on 15 L nonrebreather mask Saturating 89 to 90% Pleasant cooperative Nonfocal neuro exam Clinically looks compensated for CHF Edema of her legs present however wrinkling of skin present as per the family her edema has improved Abdomen soft however distended with obesity EOMI, PERRLA Nonfocal neuro exam Bilateral breath sound with mild crackles at the base of the lungs Pleasant and cooperative Data : 01/23/22 15:06 01/23/22 15:06 Micro: Microbiology 01/23/22 15:21 Blood Culture - Preliminary Blood SPECIMEN COLLECTED 01/23/22 15:18 Blood Culture - Preliminary Blood SPECIMEN COLLECTED A&P Assessment and plan (1) COVID: Status: Acute (2) Hypoxia: Status: Acute (3) CAD (coronary artery disease): Status: Acute Qualifiers: Coronary Disease-Associated Artery/Lesion type: [place] artery [place] vs. transplanted heart: king salmon heart Associated angina: without angina Qualified Code(s): I25.10 - Atherosclerotic heart disease of [place] coronary artery without angina pectoris (4) Hypertension: Status: Acute Qualifiers: Hypertension type: essential hypertension Qualified Code(s): I10 - Essential (primary) hypertension (5) Atrial fibrillation: Status: Acute Qualifiers: Atrial fibrillation type: longstanding persistent Qualified Code(s): I48.11 - Longstanding persistent atrial fibrillation (6) Cardiomyopathy: Status: Acute Qualifiers: Cardiomyopathy type: ischemic Qualified Code(s): I25.5 - Ischemic cardiomyopathy (7) Pacemaker: Status: Acute Plan covid 19 pneumonia Groundglass opacities bilateral on x-ray Check procalcitonin inflammatory markers She does take anticoagulating agent at home I will start Decadron and remdesivir Her symptoms started 10 days ago Cardiomyopathy, CHF No acute decompensation I would now use IV diuretics Clinically looks compensated Will switch to p.o. diuretics tomorrow She already has wrinkling of lower extremities skin A. fib without RVR Symptomatic bradycardia status post pacemaker placement by Dr. Medina Bilateral carotid endarterectomy history Patient is full code Continue anticoagulating agent which will cover for DVT prophylaxis as well Hypoxia related to COVID-19 I have recommended BiPAP for now because she was saturating 89 to 90% on 15 L nonrebreather mask with high BMI she is at risk of hypoventilation and worsening hypoxia Attestations Medical Necessity Statement*: Anticipating more than 2 midnights for management of COVID-19 pneumonia Time Spent in Patient Care: 40mins Coding Level of Care Code Acute Tank Car Reconditioner for [facility] Fwd Diagnoses COVID U07.1 Hypoxia R09.02 CAD (coronary artery disease) I25.10 Coronary Disease-Associated Artery/Lesion type: [place] artery [place] vs. transplanted heart: [place] heart Associated angina: without angina Hypertension I10 Hypertension type: essential hypertension Atrial fibrillation I48.11 Atrial fibrillation type: longstanding persistent Cardiomyopathy I25.5 Cardiomyopathy type: ischemic Pacemaker Z95.0
--- NOTE | 2022-01-23 20:28 | USCV_ITS ---
Jennifer Quintero Age: 87 Gender: F : 1935 Exam Date: 01/23/2022 22:47 Ordering Phys: Mo Wiley MD Technologist: RENETTA [place] [facility] [place]: shortness of breath, CHF?, patient is in COVID ISOLATION, on CPAP, hx pacer 2018 BP: 119 / 67 HR: 59 Rhythm: Sinus rhythm with occasional strings of Afib Technical Quality: Adequate MEASUREMENTS (Male / Female) Normal Values 2D ECHO LV Diastolic Diameter PLAX 4.9 cm 4.2 - 5.9 / 3.9 - 5.3 cm LV Systolic Diameter PLAX 3.7 cm IVS Diastolic Thickness 1.2 cm 0.6 - 1.0 / 0.6 - 0.9 cm IVS Systolic Thickness 1.8 cm LVPW Diastolic Thickness 1.2 cm 0.6 - 1.0 / 0.6 - 0.9 cm LVPW Systolic Thickness 1.8 cm LVOT Diameter 2.0 cm LV Ejection Fraction 2D Teich 48.4 % LV Ejection Fraction MOD 2C 52.9 % LV Ejection Fraction 2C AL 53.9 % LA Diameter 4.0 cm LA Width 5.2 cm LA Height 6.1 cm RA Width 3.2 cm RA Height 4.3 cm Aorta at Sinotubular Diameter 2.6 cm IVC Diameter 1.3 cm M-MODE Aortic Annulus Diameter 2.7 cm LA Ao Ratio MM 1.4 MV E Point Septal Separation 0.7 cm DOPPLER AV Peak Velocity 127.0 cm/s LVOT Peak Velocity 74.0 cm/s AV Area Cont Eq vti 1.6 cm squared AV Area Cont Eq pk 1.8 cm squared MV Area PHT 3.9 cm squared Mitral E to A Ratio 0.8 MV E' Velocity 41.5 cm/s Mitral E to MV E' Ratio 11.9 Mitral E to LV E' Lateral Ratio 20.7 Mitral E to LV E' Septal Ratio 8.4 TR Peak Velocity 245.0 cm/s TR Peak Gradient 24.0 mmHg TV Peak E Velocity 47.0 cm/s Right Atrial Pressure 5.0 mmHg Pulmonary Artery Systolic Pressu 29.0 mmHg PV Peak Velocity 142.0 cm/s RV Acceleration Time 0.1 s RV Ejection Time 0.3 s RV AcT/ET 0.2 FINDINGS Left Ventricle Normal left ventricular size and mildly increased wall thickness. Moderately decreased left ventricular systolic function. Left ventricular ejection fraction is estimated at 40 %. Moderate global hypokinesis. Grade II diastolic dysfunction, moderately elevated filling pressures. Abnormal septal motion. Right Ventricle Normal right ventricular size and systolic function. Right ventricular systolic pressure 29 mmHg. Pacemaker wire visualized in the right ventricle. Right Atrium Normal right atrial size. Left Atrium Moderately increased left atrial size. Mitral Valve Moderately thickened mitral valve. Somewhat restricted movement of posterior mitral leaflet. No mitral valve stenosis. Moderate posteriorly directed mitral valve regurgitation. Aortic Valve Mildly thickened and calcified trileaflet aortic valve. Sclerotic aortic valve without aortic valve stenosis. No aortic valve regurgitation. Tricuspid Valve Structurally normal tricuspid valve. Mild tricuspid valve regurgitation. Pulmonic Valve Pulmonic valve not well visualized. No pulmonary valve stenosis. Pericardium No pericardial effusion. Aorta Normal-sized aortic root. IVC Normal IVC dimension with >50% respiratory change of the inferior vena cava. CONCLUSIONS 1. Normal left ventricular size and mildly increased wall thickness. Moderately decreased left ventricular systolic function. Left ventricular ejection fraction is estimated at 40 %. Moderate global hypokinesis. Grade II diastolic dysfunction, moderately elevated filling pressures. Abnormal septal motion. 2. Normal right ventricular size and systolic function. 3. Moderately thickened mitral valve. Somewhat restricted movement of posterior mitral leaflet. Moderate posteriorly directed mitral valve regurgitation. 4. Mild tricuspid valve regurgitation. 5. When compared to previous echocardiogram report dated 08/11/2020, mitral regurgitation appears to be moderate. Samanta Wayne MD (Electronically Signed) Final Date: 24 January 2022 12:44 S
[2022-01-23] MEDS: FUROsemide 10 mg/mL SDV 10mL 60 MG IVP (20:56)
[2022-01-23] MEDS: atorvastatin 40 mg Tablet PO (20:57)
[2022-01-23 23:05] LABS: Glucose Urine UA Norm (Normal); Protein Urine Neg (Negative); Specific Gravity, Urine 1.015 (1.005-1.030); Urine Appearance Clear (CLEAR); Urine Color Yellow (Yellow); pH Urine 5 (5-7)
[2022-01-23 23:07] LABS: Add Urine Microscopic? YES; Bilirubin Urine Neg (Negative); Blood Urine Neg (Negative); Ketones Urine 1+ (Negative); Leukocyte Esterase Urine 2+ (Negative); Nitrate Urine Negative (Negative); Urobilinogen Urine Norm (Negative)
[2022-01-23 23:18] LABS: Add Urine Culture? Yes; Bacteria Urine 2+ /hpf; Hyaline Casts Urine 0-4 /lpf; RBC Urine 0-4 /hpf (0-2); Squamous Epithelial Cell Urine 0-4 /hpf (0-5); WBC Urine 40-55 /hpf (0-5)
[2022-01-24] VITALS (10 sets, daily range): BP systolic 104–143; BP diastolic 58–69; PULSE 59–66; RESP 18–38; TEMP 36.8–38.3; O2SAT 86–95
--- NOTE | 2022-01-24 01:47 | PC.PHAR ---
Renal Dosing for Levaquin 750mg daily changed to every other day due to crcl 36.85 Thank you Eliz Luu [facility]
[2022-01-24] MEDS: potassium chloride ER 10 mEq Tablet PO (05:37)
[2022-01-24] MEDS: clopidogrel 75 mg Tablet PO (05:37)
[2022-01-24 09:51] LABS: Basophils % 0.1 %; Hematocrit 38.7 % (37.0-47.0); Hemoglobin 12.2 g/dL (11.5-15.3); Lymphocytes # 0.5 10^3/uL (0.8-4.8); Lymphocytes % 7.5 %; Mean Corpuscular HGB Conc 31.5 g/dL (30.0-36.0); Mean Corpuscular Hemoglobin 28.7 pg (28.0-34.0); Mean Corpuscular Volume 91.1 fl (81-99); Mean Platelet Volume 10.5 fL (7.4-10.4); Monocytes # 0.4 10^3/uL (0.2-0.9); Monocytes % 5.7 %; Neutrophils # 6.08 10^3/uL (1.8-7.7); Neutrophils % 86.3 %; Nucleated Red Blood Cells % 0 %; Platelet Count 210 10^3/cmm (130-400); Red Blood Count 4.25 10^6/uL (4.1-5.3); Red Cell Distribution Width 13.9 % (12.1-15.1); White Blood Count 7.1 10^3/uL (4.0-10.0)
[2022-01-24 10:09] LABS: Blood Urea Nitrogen 18 mg/dL (8-23); C Reactive Protein 311.6 mg/L (0.0-4.9); Calcium 8.5 mg/dL (8.5-10.5); Carbon Dioxide 27 mmol/L (22-29); Chloride 95 mmol/L (98-107); Glucose 231 mg/dL (65-115); Osmolality Calculated 285 mOsm/kg (285-295); Sodium 133 mmol/L (136-145)
[2022-01-24 10:16] LABS: Procalcitonin 0.52 ng/mL (0-0.5)
[2022-01-24] MEDS: FUROsemide 10 mg/mL SDV 10mL 60 MG IVP ×2 (11:39→21:34)
[2022-01-24] MEDS: levoFLOXacin 750 mg Tablet PO (11:40)
[2022-01-24] MEDS: apixaban 5 mg Tablet 2.5 MG PO ×2 (11:41→18:48)
--- NOTE | 2022-01-24 12:21 | PC.NURSE ---
I reported the low 02 to the nurse. was told to call respitory. Mahendra came up
[2022-01-24] MEDS: atorvastatin 40 mg Tablet PO (21:20)
[2022-01-24] MEDS: acetaminophen 500 mg Tablet PO (22:11)
[2022-01-25] VITALS (16 sets, daily range): BP systolic 117–151; BP diastolic 66–79; PULSE 60–70; RESP 16–39; TEMP 36.4–36.9; O2SAT 78–97
[2022-01-25] MEDS: potassium chloride ER 10 mEq Tablet PO (06:12)
[2022-01-25] MEDS: clopidogrel 75 mg Tablet PO (06:12)
[2022-01-25] MEDS: FUROsemide 10 mg/mL SDV 10mL 60 MG IVP (08:39)
[2022-01-25] MEDS: sennosides-docusate Tablet 1 TAB PO (08:40)
[2022-01-25] MEDS: apixaban 5 mg Tablet 2.5 MG PO ×2 (08:40→18:51)
--- NOTE | 2022-01-25 11:14 | P.PN_ITS ---
Subjective Subjective: This morning patient was stating that she would not allow us to use heated high flow however agreeable for BiPAP Will change her mask to fullface Off isolation Will request artificial tears She did work with PT and became hypoxic Currently she was on 40 L high flow nasal cannula and saturating 86% Vitals/I&O/Wt Last Vital Signs Temp 98.1 F 01/25/22 07:48 Pulse 63 01/25/22 10:32 Resp 18 01/25/22 08:00 BP 133/67 01/25/22 07:48 Pulse Ox 92 01/25/22 10:32 O2 Del Method 01/25/22 08:00 O2 Flow Rate 14 01/25/22 08:00 FiO2 75 01/25/22 10:32 01/24/22 01/25/22 01/25/22 22:59 06:59 14:59 Intake Total 480 / 480 120 / 600 Output Total 1225 / 1225 Balance 480 / 480 -1105 / -625 Weight last 48 hrs Weight 90.718 kg Weight 90.718 kg Physical Exam Narrative: Clinically patient looks dehydrated Awake and alert Nonfocal neuro exam Hypoxic on 40 L nasal cannula high flow Abdomen soft Skin wrinkling noted Abdomen soft Bilateral breath sound without active rhonchi or crackles Daughter at the bedside Data : 01/24/22 09:41 01/24/22 09:41 Micro: Microbiology 01/23/22 17:15 Gram Stain - Final Sputum - Expectorated Sputum Sputum Culture - Preliminary 01/23/22 22:45 Urine Culture - Preliminary Urine,Clean Catch 01/23/22 15:21 Blood Culture - Preliminary Blood NEGATIVE TO DATE 01/23/22 15:18 Blood Culture - Preliminary Blood NEGATIVE TO DATE A&P Assessment and plan (1) Hypoxia: Status: Acute (2) COVID: Status: Acute (3) Status post carotid endarterectomy: Status: Acute (4) Left carotid artery stenosis: Status: Acute (5) Hypertension: Status: Acute Qualifiers: Hypertension type: essential hypertension Qualified Code(s): I10 - Essential (primary) hypertension (6) Atrial fibrillation: Status: Acute Qualifiers: Atrial fibrillation type: longstanding persistent Qualified Code(s): I48.11 - Longstanding persistent atrial fibrillation (7) Pacemaker: Status: Acute Plan COVID-19 pneumonia Currently requiring intermittent BiPAP Decreased p.o. intake Patient is a picky eater I did assistant corporation counsel her to improve her p.o. intake Continue Decadron and remdesivir She has renally dosed Levaquin on board as well Afebrile I did tell the patient that she might need 3 to 4 days in the hospital Her oxygen fragment is still high Continue Yi Ness fib without RVR I will discontinue her Lasix and potassium supplementation for now Full code Cardiac diet Add artificial tears Added incentive spirometer and Acapella I did assistant corporation counsel patient to sleep on her stomach Attestations Medical Necessity Statement*: Continue medical management Time Spent in Patient Care: 40 Coding Level of Care Code Acute Tree Shear Operator for g Fwd Diagnoses Hypoxia R09.02 COVID U07.1 Status post carotid endarterectomy Z98.890 Left carotid artery stenosis I65.22 Hypertension I10 Hypertension type: essential hypertension Atrial fibrillation I48.11 Atrial fibrillation type: longstanding persistent Pacemaker Z95.0
[2022-01-25] MEDS: dexamethasone 4 mg Tablet 6 MG PO (13:17)
[2022-01-25] MEDS: remdesivir 100 MG in sodium chloride 0.9% (100 ml) 80 ML IV (13:24)
[2022-01-25] MEDS: ipratropium-albuterol 3 mL Neb INHALATION (13:37)
--- NOTE | 2022-01-25 16:19 | PC.NURSE ---
pt o2 sats on continous monitor reading 74% pt has 15lt o2 via nasal cannula...pt instructed to take deep breaths through her nose ...does as instructed but o2 sat will not go above 76%....respiratory therapist notified...o2 sat reading was verified...pt was encouraged to put the bi-pap back on but refused , saying she would put it back on tonight when she goes to bed
[2022-01-25] MEDS: ALPRAZolam 0.5 mg Tablet PO (16:50)
[2022-01-25] MEDS: budesonide 0.5 mg/2 mL Neb 0.25 MG INHALATION (20:42)
[2022-01-25] MEDS: atorvastatin 40 mg Tablet PO (21:34)
[2022-01-26] VITALS (12 sets, daily range): BP systolic 114–162; BP diastolic 57–75; PULSE 60–67; RESP 18–30; TEMP 36.3–36.6; O2SAT 86–97
[2022-01-26 04:47] LABS: ABG PCO2 37.7 mmHg (35-45); ABG PH Result 7.46 (7.35-7.45); Arterial Blood Gas Hematocrit 40.3 % (37-47); Blood Gas Allen Test Pos; Blood Gas Operator Identificat WALCI; Blood Gas Sample Site Radial, right; Blood Gas Sample Type Arterial; HCO3 ABG 26.8 mmol/L (22-26); Oxygen Device BIPAP; PO2 ABG 66.5 mmHg (80.0-100.0)
[2022-01-26 05:49] LABS: Basophils % 0.2 %; Hematocrit 40.4 % (37.0-47.0); Hemoglobin 13.2 g/dL (11.5-15.3); Lymphocytes # 0.3 10^3/uL (0.8-4.8); Lymphocytes % 6.2 %; Mean Corpuscular HGB Conc 32.7 g/dL (30.0-36.0); Mean Corpuscular Hemoglobin 28.9 pg (28.0-34.0); Mean Corpuscular Volume 88.6 fl (81-99); Mean Platelet Volume 10.6 fL (7.4-10.4); Monocytes # 0.1 10^3/uL (0.2-0.9); Monocytes % 2.2 %; Neutrophils # 4.95 10^3/uL (1.8-7.7); Neutrophils % 89.8 %; Nucleated Red Blood Cells % 0 %; Platelet Count 298 10^3/cmm (130-400); Red Blood Count 4.56 10^6/uL (4.1-5.3); Red Cell Distribution Width 13.7 % (12.1-15.1); White Blood Count 5.5 10^3/uL (4.0-10.0)
[2022-01-26] MEDS: clopidogrel 75 mg Tablet PO (06:05)
[2022-01-26 06:07] LABS: Anion Gap 18.6 (5-19); Blood Urea Nitrogen 26 mg/dL (8-23); Calcium 8.8 mg/dL (8.5-10.5); Carbon Dioxide 25 mmol/L (22-29); Chloride 93 mmol/L (98-107); Glucose 299 mg/dL (65-115); Osmolality Calculated 292 mOsm/kg (285-295); Potassium 3.6 mmol/L (3.5-5.1); Sodium 133 mmol/L (136-145)
--- NOTE | 2022-01-26 09:09 | CT_ITS ---
WS: [id number] CTA OF THE CHEST WITH PULMONARY EMBOLISM PROTOCOL TECHNIQUE: High-resolution contrast enhanced CTA of the chest with coronal and sagittal reformatted i mages with pulmonary embolism protocol. MIP images are also reviewed. CLINICAL INFORMATION: Hypoxia COMPARISON: CTA chest 1116 DLP: 424.[address] scans at [facility] use at least one of these dose optimization techniques: automated e xposure control; mA and/or kV adjustment per patient size (includes targeted exams where dose is matc hed to clinical indication); or iterative reconstruction. FINDINGS: Proximal main pulmonary arteries are normal. A few tiny filling defects in the RIGHT distal subsegmen valdo pulmonary arteries RIGHT lower lobe suspicious for pulmonary emboli. Some images degraded by alexandra ent motion. Cardiomegaly. Normal caliber thoracic aorta. Aortic calcification. Reactive mediastinal l ymph nodes. Bronchovascular thickening. No axillary lymphadenopathy. Diffuse hazy groundglass infiltr ates throughout both lungs compatible with Covid 19 pneumonia. Trace LEFT pleural fluid. Reflux into the hepatic veins compatible with RIGHT heart failure. Cholelithiasis or sludge in the ga llbladder. Small esophageal hiatal hernia. Splenic artery calcification. Adrenal glands are normal. F atty atrophy of the pancreas. Mild thoracic kyphosis. CT/CT angio chest PE protcl [id number] IMPRESSION: 1. A few tiny filling defects in the distal RIGHT lower lobe distal pulmonary arteries suspicious for tiny pulmonary embolus. Proximal main pulmonary arterie s are normal. 2. Diffuse hazy groundglass infiltrates throughout both lungs compatible with Covid 19 pneumonia. 3. Cardiomegaly with reflux into the hepatic veins suspicious for RIGHT heart dysfunction. Notified Mo Wiley MD at 01/26/2022 11:41 AM.
--- NOTE | 2022-01-26 09:09 | PM.PN ---
Subjective Subjective: Patient is still hypoxic on BiPAP She is adamant that she would not try heated high flow She was on 15 L high flow nasal cannula when entered the room and she was saturating 85% trying to eat breakfast I tried 1 more time to convince her to use heated high flow but she adamantly refused She was sitting in a chair She is awake and alert I heard crackles on lung auscultation Would request CTA chest Vitals/I&O/Wt Last Vital Signs Temp 97.4 F L 01/26/22 07:58 Pulse 60 01/26/22 07:58 Resp 18 01/26/22 07:58 BP 118/57 01/26/22 07:58 Pulse Ox 90 01/26/22 07:58 O2 Del Method 01/26/22 07:58 O2 Flow Rate 14 01/26/22 04:00 FiO2 65 01/26/22 02:18 01/25/22 01/26/22 01/26/22 22:59 06:59 14:59 Intake Total 580 / 820 Output Total 600 / 600 Balance - Physical Exam Narrative: Patient is sitting in a chair eating breakfast Currently on 15 L nonrebreather mask saturating 85% Daughter at the bedside She looks clinically dehydrated Abdomen soft Bilateral breath sounds with crackles Awake and alert Pleasant during my evaluation Data : 01/26/22 04:29 01/26/22 04:29 Micro: Microbiology 01/23/22 17:15 Gram Stain - Final Sputum - Expectorated Sputum Sputum Culture - Preliminary 01/23/22 22:45 Urine Culture - Preliminary Urine,Clean Catch A&P Assessment and plan (1) COVID: Status: Acute (2) Hypoxia: Status: Acute Plan Hypoxia related to COVID-19 She is still hypoxic on 15 L nonrebreather mask, refusing heated high flow Intermittent BiPAP use Her p.o. intake improved slightly yesterday Today she is trying to eat breakfast at the time of my evaluation Will request CTA chest rule out pulm embolic phenomenon Depending on CT chest results we will decide further on diuretics Continue Eliquis 2.5 twice daily regimen for now Continue DuoNeb, incentive spirometer and Acapella No active chest pain For her anxiety she is getting Xanax Artificial tears Patient had 1 bowel movement yesterday Full code Attestations Medical Necessity Statement*: Continue medical management Time Spent in Patient Care: 40 Coding Level of Care Code Acute Autistic Teacher for Chg Fwd Diagnoses COVID U07.1 Hypoxia R09.02
[2022-01-26] MEDS: budesonide 0.5 mg/2 mL Neb 0.25 MG INHALATION ×2 (09:31→21:00)
[2022-01-26] MEDS: ipratropium-albuterol 3 mL Neb INHALATION ×2 (09:31→14:03)
[2022-01-26] MEDS: apixaban 5 mg Tablet 2.5 MG PO ×2 (10:14→17:09)
[2022-01-26] MEDS: sennosides-docusate Tablet 1 TAB PO (10:15)
[2022-01-26] MEDS: dexamethasone 4 mg Tablet 6 MG PO (10:16)
[2022-01-26] MEDS: levoFLOXacin 750 mg Tablet PO (10:17)
[2022-01-26] MEDS: iohexol 350 mg/mL 100 mL Btl IV (10:40)
--- NOTE | 2022-01-26 12:03 | PC.SOCIAL ---
IMM update IMM updated with patient's granddaughter who is at bedside. Verbalized an understanding. Initialled, dated, timed, and placed in chart.
[2022-01-26] MEDS: remdesivir 100 MG in sodium chloride 0.9% (100 ml) 80 ML IV (12:18)
[2022-01-26] MEDS: ALPRAZolam 0.5 mg Tablet PO (14:13)
[2022-01-26] MEDS: atorvastatin 40 mg Tablet PO (22:02)
[2022-01-27] VITALS (8 sets, daily range): BP systolic 108–149; BP diastolic 64–75; PULSE 59–72; RESP 16–28; TEMP 35.9–36.6; O2SAT 86–94
[2022-01-27 03:59] LABS: Basophils % 0.2 %; Eosinophils % 0.2 %; Hematocrit 39.1 % (37.0-47.0); Hemoglobin 12.6 g/dL (11.5-15.3); Lymphocytes # 0.4 10^3/uL (0.8-4.8); Lymphocytes % 6.8 %; Mean Corpuscular HGB Conc 32.2 g/dL (30.0-36.0); Mean Corpuscular Hemoglobin 28.3 pg (28.0-34.0); Mean Corpuscular Volume 87.7 fl (81-99); Mean Platelet Volume 10.1 fL (7.4-10.4); Monocytes # 0.3 10^3/uL (0.2-0.9); Monocytes % 4.8 %; Neutrophils # 5.25 10^3/uL (1.8-7.7); Nucleated Red Blood Cells % 0 %; Platelet Count 323 10^3/cmm (130-400); Red Blood Count 4.46 10^6/uL (4.1-5.3); Red Cell Distribution Width 13.9 % (12.1-15.1)
[2022-01-27 04:27] LABS: Anion Gap 16.9 (5-19); Blood Urea Nitrogen 43 mg/dL (8-23); C Reactive Protein 178.4 mg/L (0.0-4.9); Carbon Dioxide 27 mmol/L (22-29); Chloride 93 mmol/L (98-107); Glucose 370 mg/dL (65-115); Osmolality Calculated 302 mOsm/kg (285-295); Potassium 3.9 mmol/L (3.5-5.1); Sodium 133 mmol/L (136-145)
[2022-01-27] MEDS: clopidogrel 75 mg Tablet PO (05:39)
[2022-01-27] MEDS: apixaban 5 mg Tablet 2.5 MG PO (08:03)
[2022-01-27] MEDS: dexamethasone 4 mg Tablet 6 MG PO (08:04)
[2022-01-27] MEDS: sennosides-docusate Tablet 1 TAB PO (08:05)
[2022-01-27] MEDS: ipratropium-albuterol 3 mL Neb INHALATION ×2 (08:08→20:17)
[2022-01-27] MEDS: budesonide 0.5 mg/2 mL Neb 0.25 MG INHALATION ×2 (08:08→20:17)
--- NOTE | 2022-01-27 08:51 | USR_ITS ---
PROCEDURE INFORMATION: Exam: US Duplex Lower Extremity Veins, Bilateral Exam date and time: 01/27/2022 10:29 AM Age: 87 years old Clinical indication: Other: The order says dvt; Additional info: Dvt, patient in chair eating at 9:40am. Will check back. CR TECHNIQUE: Imaging protocol: Real-time Duplex ultrasound of the bilateral extremities with 2-D sorenson scale, color Doppler flow and spectral waveform analysis with image documentation. Complete exam focused on the bilateral lower extremity veins. COMPARISON: No relevant prior studies available. FINDINGS: Right deep veins: The common femoral, femoral, popliteal and visualized calf/posterior tibial veins are patent without thrombus. Normal Doppler waveforms. Normal compressibility and/or augmentation response. Right superficial veins: Saphenofemoral junction is patent without thrombus. Left deep veins: The common femoral, femoral, popliteal and visualized calf/posterior tibial veins are patent without thrombus. Normal Doppler waveforms. Normal compressibility and/or augmentation response. Left superficial veins: Saphenofemoral junction is patent without thrombus. Soft tissues: Unremarkable. US/CV venous duplex [facility] [id number] IMPRESSION: No evidence of deep vein thrombosis.
[2022-01-27] MEDS: potassium chloride ER 20 mEq Tablet 40 MEQ PO (09:53)
--- NOTE | 2022-01-27 11:16 | P.PN_ITS ---
Subjective Subjective: Patient is on 15 L high flow nasal cannula I did speak regarding LTAC placement I did tell her about the use of Lovenox for her PE Started Lasix today Requested venous Doppler Patient is trying to improve her p.o. intake Vitals/I&O/Wt Last Vital Signs Temp 97.6 F 01/27/22 08:00 Pulse 68 01/27/22 08:00 Resp 18 01/27/22 08:00 BP 130/64 01/27/22 08:00 Pulse Ox 88 L 01/27/22 08:00 O2 Del Method 01/27/22 08:00 O2 Flow Rate 15 01/27/22 08:00 FiO2 70 01/27/22 04:48 01/26/22 01/27/22 01/27/22 22:59 06:59 14:59 Intake Total 700 / 1040 240 / 240 Output Total 550 / 550 Balance 150 / 490 240 / 240 Physical Exam Narrative: Patient is awake and alert She is reading Wesley at the time of evaluation currently on high flow nasal cannula 15 L Bilateral breath sounds with crackles Abdomen soft Skin wrinkling of lower extremity noted Mild edema present Awake and alert Nonfocal neuro exam Daughter at the bedside Nonfocal neuro exam Data : 01/27/22 03:46 01/27/22 03:46 Micro: Microbiology 01/23/22 17:15 Gram Stain - Final Sputum - Expectorated Sputum Sputum Culture - Final 01/23/22 22:45 Urine Culture - Final Urine,Clean Catch A&P Assessment and plan (1) Hypoxia: (2) COVID: (3) Acute respiratory failure with hypoxia: (4) Cardiomyopathy: (5) Pulmonary embolism: Plan Acute PE Start therapeutic Lovenox Discontinue Eliquis Might need Xarelto at the time of discharge Failed Eliquis Acute hypoxia related to COVID-19 Currently on 15 L high flow nasal cannula Intermittent BiPAP usage She does not want to use heated high flow Patient will need LTAC if she is agreeable Requesting venous Doppler Continue DuoNeb treatment with incentive spirometer and Acapella No active chest pain She is getting Xanax for anxiety Adequate p.o. intake, bowel movement 01/25 Full code I have recommended LTAC Echo did not show hypokinesia however she has no complaint of chest pain, She has remained hemodynamically stable Attestations Medical Necessity Statement*: Continue medical management Time Spent in Patient Care: 40 Coding Level of Care Code Acute Plant General Manager for Chg Fwd Diagnoses Hypoxia R09.02 COVID U07.1 Acute respiratory failure with hypoxia J96.01 Cardiomyopathy I42.9 Pulmonary embolism I26.99
[2022-01-27] MEDS: remdesivir 100 MG in sodium chloride 0.9% (100 ml) 80 ML IV (12:53)
[2022-01-27] MEDS: atorvastatin 40 mg Tablet PO (20:44)
[2022-01-27] MEDS: enoxaparin 100 mg/mL Syringe 90 MG SUBCUT (20:44)
[2022-01-28] VITALS (12 sets, daily range): BP systolic 129–161; BP diastolic 58–79; PULSE 59–66; RESP 16–22; TEMP 36.2–36.7; O2SAT 85–95
[2022-01-28 04:15] LABS: Blood Urea Nitrogen 49 mg/dL (8-23); Calcium 8.6 mg/dL (8.5-10.5); Carbon Dioxide 26 mmol/L (22-29); Chloride 93 mmol/L (98-107); Glucose 433 mg/dL (65-115); Osmolality Calculated 304 mOsm/kg (285-295); Sodium 131 mmol/L (136-145)
[2022-01-28 04:16] LABS: Anion Gap 16.6 (5-19); Potassium 4.6 mmol/L (3.5-5.1)
--- NOTE | 2022-01-28 06:47 | PC.NURSE ---
Family requested to reschedule Plavix until pt wakes up this AM. Rescheduled until 0800. Day Nurse Ly smith.
[2022-01-28] MEDS: budesonide 0.5 mg/2 mL Neb 0.25 MG INHALATION ×2 (07:50→20:25)
[2022-01-28] MEDS: ipratropium-albuterol 3 mL Neb INHALATION ×2 (08:14→20:25)
[2022-01-28] MEDS: dexamethasone 4 mg Tablet 6 MG PO (09:16)
[2022-01-28] MEDS: clopidogrel 75 mg Tablet PO (09:17)
[2022-01-28] MEDS: levoFLOXacin 750 mg Tablet PO (09:17)
[2022-01-28] MEDS: sennosides-docusate Tablet 1 TAB PO (09:17)
[2022-01-28] MEDS: enoxaparin 100 mg/mL Syringe 90 MG SUBCUT ×2 (09:18→20:35)
--- NOTE | 2022-01-28 09:26 | P.PN_ITS ---
Subjective Subjective: Patient is in good spirits She is agreeable to go to select LTAC test engineering manager updated No overnight events Afebrile Currently she is on 15 L high flow nasal cannula Discontinue Lasix, creatinine is 1.2 Patient looks dehydrated Adequate p.o. intake No BM in last 3 days Vitals/I&O/Wt Last Vital Signs Temp 97.7 F 01/28/22 07:56 Pulse 66 01/28/22 08:00 Resp 18 01/28/22 08:00 BP 161/58 01/28/22 07:56 Pulse Ox 95 01/28/22 08:00 O2 Del Method 01/28/22 08:00 O2 Flow Rate 15 01/27/22 20:17 FiO2 60 01/28/22 08:00 01/27/22 01/28/22 01/28/22 22:59 06:59 14:59 Intake Total 350 / 830 200 / 1030 Output Total 450 / 450 350 / 800 Balance -100 / 380 -150 / 230 Physical Exam Narrative: Patient is awake and alert Sitting in a chair In good spirits Currently on high flow nasal cannula 15 L Awake and alert No signs of edema of legs Skin wrinkling noted S1, S2 Abdomen soft EOMI, PERRLA Data : 01/27/22 03:46 01/28/22 02:39 A&P Assessment and plan (1) Pulmonary embolism: (2) Acute respiratory failure with hypoxia: (3) Hypoxia: (4) COVID: (5) Atrial fibrillation: (6) CAD (coronary artery disease): (7) Pacemaker: Plan COVID-19 related hypoxia Currently on 15 L nasal cannula She is in good spirits No significant hypoxia when BiPAP was transition to nasal cannula Patient is endorsing feeling hungry No BM in last 3 days No active chest pain or shortness of breath Agreeable to go to select LTAC Acute on chronic kidney disease, clinically looks dehydrated, discontinue Lasix Acute PE, therapeutic Lovenox Eliquis held Full code Attestations Medical Necessity Statement*: Continue medical management Time Spent in Patient Care: 40 Coding Level of Care Code Acute Director Of District Office for g Fwd Diagnoses Pulmonary embolism I26.99 Acute respiratory failure with hypoxia J96.01 Hypoxia R09.02 COVID U07.1 Atrial fibrillation I48.91 CAD (coronary artery disease) I25.10 Pacemaker Z95.0
--- NOTE | 2022-01-28 10:31 | PC.SOCIAL ---
IMM update IMM updated with patient and daughter at bedside. Verbalized an understanding. Copy Pg 2 provided. Initialled, dated, timed, and placed in chart.
[2022-01-28] MEDS: remdesivir 100 MG in sodium chloride 0.9% (100 ml) 80 ML IV (13:09)
[2022-01-28] MEDS: atorvastatin 40 mg Tablet PO (20:35)
[2022-01-29] VITALS (12 sets, daily range): BP systolic 130–149; BP diastolic 55–67; PULSE 59–69; RESP 16–37; TEMP 36.3–36.9; O2SAT 84–94
[2022-01-29 05:24] LABS: Anion Gap 14.2 (5-19); Blood Urea Nitrogen 41 mg/dL (8-23); Calcium 8.7 mg/dL (8.5-10.5); Carbon Dioxide 26 mmol/L (22-29); Chloride 96 mmol/L (98-107); Glucose 372 mg/dL (65-115); Osmolality Calculated 299 mOsm/kg (285-295); Potassium 4.2 mmol/L (3.5-5.1); Sodium 132 mmol/L (136-145)
[2022-01-29] MEDS: clopidogrel 75 mg Tablet PO (05:41)
[2022-01-29] MEDS: sennosides-docusate Tablet 1 TAB PO (09:07)
[2022-01-29] MEDS: dexamethasone 4 mg Tablet 6 MG PO (09:08)
--- NOTE | 2022-01-29 11:43 | P.PN_ITS ---
Subjective Subjective: Patient is still on 15 L high flow nasal cannula She experienced some nosebleeding today She does not want to try heated high flow She still constipated does not want to try stool softeners P.o. intake is also not very good I have encouraged family to bring her food from home or bring her what ever she likes She is experiencing change of taste No active chest pain Vitals/I&O/Wt Last Vital Signs Temp 97.5 F L 01/29/22 11:43 Pulse 60 01/29/22 11:43 Resp 16 01/29/22 11:43 BP 143/61 01/29/22 11:43 Pulse Ox 91 01/29/22 11:43 O2 Del Method 01/29/22 11:43 O2 Flow Rate 15 01/29/22 08:49 FiO2 50 01/29/22 03:54 01/28/22 01/29/22 01/29/22 22:59 06:59 14:59 Intake Total 360 / 940 120 / 1060 0 / 0 Output Total 900 / 900 Balance 360 / 940 -780 / 160 0 / 0 Physical Exam Narrative: Patient is awake and alert S1, S2 Mild rhonchi on lung auscultation Currently on 15 L high flow nasal cannula Abdomen soft Skin wrinkling noted Clinically looks slightly dehydrated No edema of legs Awake and alert Pleasant to communicate Family at the bedside Data : 01/27/22 03:46 01/29/22 04:47 Micro: Microbiology 01/23/22 15:21 Blood Culture - Final Blood NO GROWTH AFTER 5 DAYS 01/23/22 15:18 Blood Culture - Final Blood NO GROWTH AFTER 5 DAYS A&P Assessment and plan (1) Pulmonary embolism: (2) Cardiomyopathy: (3) Acute respiratory failure with hypoxia: (4) Hypoxia: (5) COVID: (6) Pacemaker: (7) Atrial fibrillation: (8) Carotid stenosis, left: Plan Patient will need LTAC placement She is agreeable to go to select facility if she gets accepted Poor p.o. intake Constipated Persistent hypoxia Continue remdesivir and Decadron She is also getting therapeutic Lovenox for her PE Continue Lovenox prophylactic regimen Afebrile Creatinine stable Poor p.o. intake I have encouraged her to eat whatever she could this time I will change her diet to regular Today family found records where she wanted to be DNR/DNI however that document has not been signed she is full code for now, I have encouraged family to discuss with her regarding final goals of care Patient is stating that she would like a trial of CPR or intubation but does not want to stay on mechanical ventilator for prolonged period of time for now DVT prophylaxis sufficed with therapeutic Lovenox Her anticoagulating agent could be held today for her active nosebleed Nosebleed is secondary to humidified high flow nasal cannula oxygen, she does not want to try heated high flow Attestations Medical Necessity Statement*: Awaiting placement Time Spent in Patient Care: 40 Coding Level of Care Code Acute Instrumental Music Teacher for g Fwd Diagnoses Pulmonary embolism I26.99 Cardiomyopathy I42.9 Acute respiratory failure with hypoxia J96.01 Hypoxia R09.02 COVID U07.1 Pacemaker Z95.0 Atrial fibrillation I48.91 Carotid stenosis, left I65.22
--- NOTE | 2022-01-29 11:47 | XR_ITS ---
WS: [id number] Exam: XR chest 1V portable [id number] Date/Time of Exam: 01/29/2022 12:17 PM Reason For Exam: Hypoxia Comparison 01/23/2022. Patchy groundglass infiltrates seen throughout both lungs. Heart size is top limits normal for techni que. No pleural effusion or pneumothorax noted. The mediastinum is normal in contour. An ICD superimp oses the left chest. XR/XR chest 1V portable [id number] IMPRESSION: 1. Patchy bilateral groundglass infiltrates throughout both lungs slightly more prominent than noted on the last study. The appearance is nonspecific but this can be seen with Covid 19 pneumonia.
--- NOTE | 2022-01-29 12:39 | PC.NURSE ---
pt bley a moderate blood clot from left nares. pt has episodes of nose bleeding all morning. not significantly gross. Informed Dr Wiley at bedside rounding regarding her lovenox 90 mg q12hr order,if we need to hold it. received order to hold the lovenox for today. Pt has non pitting edema, she is concerned of increased swelling and would like to know if she needs her Lasix, Informed Dr Wiley via voalte phone if we need to resume the Lasix. He will put the order in.
[2022-01-29] MEDS: FUROsemide 20 mg Tablet PO (13:09)
[2022-01-29] MEDS: atorvastatin 40 mg Tablet PO (19:49)
[2022-01-29] MEDS: ALPRAZolam 0.5 mg Tablet PO (19:49)
[2022-01-29] MEDS: ipratropium-albuterol 3 mL Neb INHALATION (20:12)
[2022-01-29] MEDS: budesonide 0.5 mg/2 mL Neb 0.25 MG INHALATION (20:12)
[2022-01-30] VITALS (65 sets, daily range): BP systolic 106–144; BP diastolic 39–69; PULSE 58–98; RESP 12–40; TEMP 36.4–36.9; O2SAT 76–97
[2022-01-30 05:13] LABS: Blood Urea Nitrogen 37 mg/dL (8-23); Calcium 8.4 mg/dL (8.5-10.5); Carbon Dioxide 27 mmol/L (22-29); Chloride 96 mmol/L (98-107); Osmolality Calculated 307 mOsm/kg (285-295); Sodium 132 mmol/L (136-145)
[2022-01-30 05:15] LABS: Anion Gap 13.3 (5-19); Potassium 4.3 mmol/L (3.5-5.1)
[2022-01-30 05:16] LABS: Glucose 541 mg/dL (65-115)
[2022-01-30 05:31] LABS: Glucose Point of Care 463 mg/dL (70-110)
[2022-01-30] MEDS: insulin lispro 100 unit/1 mL 15 UNIT SUBCUT (05:45)
[2022-01-30] MEDS: budesonide 0.5 mg/2 mL Neb 0.25 MG INHALATION ×2 (07:26→19:52)
[2022-01-30] MEDS: ipratropium-albuterol 3 mL Neb INHALATION (07:27)
--- NOTE | 2022-01-30 08:00 | PC.NURSE ---
pt has not had a BM for 4 days now per pt report. offered her miralax and lactulose that was discussed with her doctor. she refused them for now. she would like to rest and go back to bed.
[2022-01-30] MEDS: enoxaparin 100 mg/mL Syringe 90 MG SUBCUT ×2 (08:56→20:14)
[2022-01-30] MEDS: FUROsemide 20 mg Tablet PO ×2 (08:59→10:47)
[2022-01-30] MEDS: sennosides-docusate Tablet 1 TAB PO (09:00)
[2022-01-30] MEDS: levoFLOXacin 750 mg Tablet PO (09:12)
--- NOTE | 2022-01-30 09:53 | P.PN_ITS ---
Subjective Subjective: This morning patient is still on 15 L of oxygen On nasal cannula high flow She is endorsing swelling of her legs Lasix has been continued Awake and alert In good spirits Blood sugar is higher Discontinue Decadron Vitals/I&O/Wt Last Vital Signs Temp 97.6 F 01/30/22 07:54 Pulse 60 01/30/22 07:54 Resp 26 H 01/30/22 07:54 BP 124/56 01/30/22 07:54 Pulse Ox 93 01/30/22 07:54 O2 Del Method 01/30/22 07:54 O2 Flow Rate 15 01/30/22 07:27 FiO2 50 01/30/22 04:17 01/29/22 01/30/22 01/30/22 22:59 06:59 14:59 Intake Total 480 / 480 50 / 530 120 / 120 Output Total 300 / 300 400 / 700 Balance 180 / 180 -350 / -170 120 / 120 Physical Exam Narrative: Patient is in good spirits Currently on 15 L High flow nasal cannula Awake and alert Edema of legs noted Crackles positive on lung auscultation S1, S2 variable Distended abdomen visceral obesity Nonfocal neuro exam Daughter at the bedside Data : 01/27/22 03:46 01/30/22 04:18 A&P Assessment and plan (1) Pulmonary embolism: (2) Cardiomyopathy: (3) Acute respiratory failure with hypoxia: (4) Hypoxia: (5) COVID: (6) Atrial fibrillation: (7) Cardiomyopathy: Qualifiers: Cardiomyopathy type: ischemic Qualified Code(s): I25.5 - Ischemic cardiomyopathy (8) Pacemaker: (9) Hyperglycemia: Plan Persistent hypoxia related to COVID-19 She is also showing signs of mild fluid overload Her Lasix has been increased to 40 mg daily Continue Levaquin empirical coverage Afebrile Acute pulmonary embolism continue therapeutic Lovenox Nosebleed has stopped Hyperglycemia check A1c level I have added Lantus 10 units along sliding scale Discontinue Decadron She has finished remdesivir regimen She will need LTAC Full code Consistent carb diet manager integration updated me regarding dadw-ne-euft review Attestations Medical Necessity Statement*: Continue medical management Coding Level of Care Code Acute Vice President Of Academic Affairs for [facility] Fwd Diagnoses Pulmonary embolism I26.99 Cardiomyopathy I42.9 Acute respiratory failure with hypoxia J96.01 Hypoxia R09.02 COVID U07.1 Atrial fibrillation I48.91 Cardiomyopathy I25.5 Cardiomyopathy type: ischemic Pacemaker Z95.0 Hyperglycemia R73.9
--- NOTE | 2022-01-30 10:16 | PC.SOCIAL ---
IMM Updated Updated pt on IMM. No questions voiced. Provided pt a copy. Initialed, dated, & timed copy in chart.
[2022-01-30 10:24] LABS: Glucose Point of Care 307 mg/dL (70-110)
[2022-01-30 10:31] LABS: Estmated Average Glucose 229; Hemoglobin A1C 9.6 % (4.0-6.0)
[2022-01-30] MEDS: insulin lispro 100 unit/1 mL 7 UNIT SUBCUT (10:48)
--- NOTE | 2022-01-30 13:00 | PC.NURSE ---
Addendum entered by Charo Carrero RN 01/30/22 20:22: late entry: Pt refused her Xanax. med returned to [facility]. Original Note: Bipap applied Pt agreeable to put BIPAP back on her. Her spO2 is 82% while sleeping. we have given her xanax to help her relax while on her bipap.
--- NOTE | 2022-01-30 13:52 | PC.CHAP ---
Pastoral Care Encounter/Spiritual Assessment Type of Contact [] Declined director of acquisition marketing visit [] Patient/Family/Request visit [] Outpatient visit [] Follow-up visit [] Physician referral [] Code/Alert [] Routine visit [] Staff referral [] Actively dying [] Patient sleeping [] Family support [] [] Out of room [] Palliative care [] [] Receiving care in room [] Pre-surgical visit [] Trauma [] Long length of stay [] ICU visit [] Other: Relational/Emotional Strength [] Patient feels connected with others/family/visitors/staff [] Distress [] Loneliness/isolation [] Abandonment Spirituality of Patient [] Person of Marley [] Attends Pentecostal of their Marley [] Believes in Prayer [] Reads Bible or Episcopal materials [] There are Spiritual issues to be addressed Carpenter And Joiner Interventions [] Prayer [] Active listening [] Non-anxious presence [] Spiritual/emotional support [] Crisis/trauma care [] Spiritual counseling [] Bereavement support [] Provided bereavement packet [] Provided Bible/devotional materials [] Provided toy/stuffed animal, coloring book to patient or family member [] Provided Communion [] Anointing/[place] [] Salvation [] Completed spiritual assessment [] Other: Impact on Illness or Injury [] Angry [] Fearful [] Anxious [] Often cries [] Exhaustion [] Unable to work [] Unable to attend gnosticist [] Unable to walk/stand [] Unable to read [] Unable to drive [] Unable to eat/drink [] Unable to sleep [] Unable to be with family [] Patient intubated [] Other: Summary Time spent with patient Pastoral Care Encounter/Spiritual Assessment Type of Contact [] Declined director of acquisition marketing visit [] Patient/Family/Request visit [] Outpatient visit [] Follow-up visit [] Physician referral [] Code/Alert [x] Routine visit [] Staff referral [] Actively dying [] Patient sleeping [] Family support [] [] Out of room [] Palliative care [] [] Receiving care in room [] Pre-surgical visit [] Trauma [] Long length of stay [] ICU visit [] Other: Relational/Emotional Strength [x] Patient feels connected with others/family/visitors/staff [] Distress [] Loneliness/isolation [] Abandonment Spirituality of Patient x[] Person of Marley [] Attends Pentecostal of their Marley [x] Believes in Prayer [x] Reads Bible or Episcopal materials [] There are Spiritual issues to be addressed Carpenter And Joiner Interventions x[] Prayer [x] Active listening [x] Non-anxious presence [x] Spiritual/emotional support [] Crisis/trauma care [] Spiritual counseling [] Bereavement support [] Provided bereavement packet [] Provided Bible/devotional materials [] Provided toy/stuffed animal, coloring book to patient or family member [] Provided Communion [] Anointing/[place] [] Salvation [x] Completed spiritual assessment [] Other: Impact on Illness or Injury [] Angry [] Fearful [] Anxious [] Often cries [] Exhaustion [] Unable to work [] Unable to attend gnosticist [] Unable to walk/stand [] Unable to read [] Unable to drive [] Unable to eat/drink [] Unable to sleep [] Unable to be with family [] Patient intubated [] Other: Summary Time spent with patient 15 min
[2022-01-30 14:11] LABS: Lactate Dehydrogenase 501 U/L (135-214)
[2022-01-30 14:30] LABS: ABG PCO2 37.1 mmHg (35-45); ABG PH Result 7.52 (7.35-7.45); Arterial Blood Gas Hematocrit 41.1 % (37-47); Base Excess ABG 6.9 mmol/L (-2.0-2.0); Blood Gas Allen Test Pos; Blood Gas Sample Type Arterial; HCO3 ABG 30.1 mmol/L (22-26); PO2 ABG 51.6 mmHg (80.0-100.0)
[2022-01-30 14:31] LABS: Blood Gas Operator Identificat MONRO; Blood Gas Sample Site Brachial, right; Oxygen Device BIPAP
--- NOTE | 2022-01-30 16:01 | PC.NURSE ---
pt is resting and sleeping with BIPAP still on spo@ at 96%. HR at 60.
[2022-01-30 18:19] LABS: Glucose Point of Care 286 mg/dL (70-110)
[2022-01-30] MEDS: insulin lispro 100 unit/1 mL SUBCUT (18:23)
--- NOTE | 2022-01-30 18:30 | PC.NURSE ---
RT told me that pt is on maximum settings on her BIPAP-fio2 of 100%. pt is on 15 L nc and pendant but spo2 only came up to 82%. Dr Wiley notified and he wants pt to be transferred to icu. Charge nurse made aware.
--- NOTE | 2022-01-30 18:36 | PC.NURSE ---
PATIENT REQUIRING MORE OXYGEN. CURRENTLY ON BIPAP. AMADA RN CALLED DR. CADE TO NOTIFY HIM OF OXYGEN INCREASE. PLAN WAS TO TRANSFER TO ICU. THIS NURSE CONTACTED DR. CADE AND STATED SHE SIGNED A DPOA TODAY THAT STATES IF SHE COULDN'T MAKE DECISIONS THAT SHE WOULDN'T WANT CPR OR INTUBATION , BUT IS SHE STILL WANTING THAT NOW ? DR. CADE STATED HE WAS NOT TOLD THAT IT WAS SIGNED. IF SIGNED SHE WAS DNR/DNI AND FAMILY KNOWS. HOLD TRANSFER .
--- NOTE | 2022-01-30 19:03 | PC.NURSE ---
FAMILY ASKED IF I COULD TALK TO THEM. THE SON STATED HE SIGNED A DPOA BUT HIS MOTHER DOESN'T HAVE A TERMINAL ILLNESS . FAMILY ASKED PATIENT IF SHE WOULD WANT TO BE ON THE VENTILATOR AND PATIENT ASKED HOW LONG . DR. CADE NOTIFIED. BEING AT THE END OF SHIFT, FUSION OPERATOR IS SIGNING ON. HAVEN'T RECEIVED RESPONSE FROM DR. CADE AT THIS TIME.
--- NOTE | 2022-01-30 19:11 | PC.NURSE ---
FAMILY AND PATIENT REQUESTED TO BE FULL CODE AT THIS TIME. DR. CADE NOTIFED. WILL CONTACT YARN POLISHING MACHINE OPERATOR DR. RUSSELL TO UPDATE HIM ON THE SITUATION. NOTIFIED PATHOLOGY SPECIALIST FOR ICU BED.
--- NOTE | 2022-01-30 19:39 | PC.NURSE ---
DR. CADE CALLED THE FLOOR. NOTIFIED US THAT PATIENT WOULD TRANSFER TO ICU AND CHANGED BACK TO FULL CODE. ORDERS PLACED.
[2022-01-30] MEDS: insulin glargine 100 units/1 mL 10 UNIT SUBCUT (20:34)
[2022-01-30 20:45] LABS: Glucose Point of Care 195 mg/dL (70-110)
--- NOTE | 2022-01-30 20:45 | PC.NURSE ---
Patient arrived to ICU 11. Pt. is on bipap with RT at bedside. Pt. is comfortable with no needs identified at this time. Family member at bedside.
--- NOTE | 2022-01-30 20:50 | PC.NURSE ---
Report was called to Amaury Joyce, patient was transfered to room 11in ICU. Patients blood glucose was 195 prior to transfer. Patient was transfered in bed with respiratory present as patient is still on BIPAP.
[2022-01-31] VITALS (68 sets, daily range): BP systolic 73–158; BP diastolic 42–71; PULSE 59–66; RESP 14–41; TEMP 36.8–38.7; O2SAT 89–97
[2022-01-31] MEDS: ALPRAZolam 0.5 mg Tablet PO ×2 (01:15→12:20)
[2022-01-31 04:42] LABS: Anion Gap 13.8 (5-19); Blood Urea Nitrogen 27 mg/dL (8-23); Calcium 8.4 mg/dL (8.5-10.5); Carbon Dioxide 29 mmol/L (22-29); Chloride 100 mmol/L (98-107); Glucose 214 mg/dL (65-115); Osmolality Calculated 300 mOsm/kg (285-295); Potassium 3.8 mmol/L (3.5-5.1); Sodium 139 mmol/L (136-145)
[2022-01-31 04:48] LABS: Procalcitonin 0.09 ng/mL (0-0.5)
[2022-01-31] MEDS: ipratropium-albuterol 3 mL Neb INHALATION ×3 (08:32→20:07)
[2022-01-31] MEDS: budesonide 0.5 mg/2 mL Neb 0.25 MG INHALATION ×2 (08:32→20:07)
[2022-01-31] MEDS: clopidogrel 75 mg Tablet PO (08:54)
[2022-01-31] MEDS: sennosides-docusate Tablet 1 TAB PO (08:54)
[2022-01-31] MEDS: enoxaparin 100 mg/mL Syringe 90 MG SUBCUT ×2 (08:55→20:47)
[2022-01-31] MEDS: FUROsemide 40 mg Tablet PO (08:55)
[2022-01-31] MEDS: insulin lispro 100 unit/1 mL SUBCUT ×3 (09:01→18:32)
[2022-01-31 09:14] LABS: Glucose Point of Care 207 mg/dL (70-110)
--- NOTE | 2022-01-31 11:15 | P.PN_ITS ---
Subjective Subjective: Patient is getting BiPAP dependent, she cannot tolerate coming off the BiPAP she would desaturate quickly She is full code Family is agreeable with intubation if needed today Her insurance has denied LTAC approval Vitals/I&O/Wt Last Vital Signs Temp 98.2 F 01/31/22 04:00 Pulse 61 01/31/22 09:40 Resp 32 H 01/31/22 08:20 BP 122/56 01/31/22 04:45 Pulse Ox 94 01/31/22 09:40 O2 Del Method 01/31/22 08:20 O2 Flow Rate 15 01/30/22 10:45 FiO2 60 01/31/22 09:40 01/30/22 01/31/22 01/31/22 22:59 06:59 14:59 Output Total 700 / 700 Balance -700 / -580 Physical Exam Narrative: Patient is on BiPAP She is still awake and alert able to communicate She is getting dehydrated and malnourished Abdomen soft Bilateral breath sound with crackles Awake and alert EOMI, PERRLA Edema of legs noted Urinary Catheter Management: Demarco: Cath Placed During This Visit: yes Reason for Continuing Indwelling Catheter: Accurate Measurement of Urinary Output in Critically Ill Patients Urinary Catheter Date of Insertion: 01/30/22 Urinary Catheter Time of Insertion: 23:00 Data : 01/27/22 03:46 01/31/22 03:47 A&P Assessment and plan (1) Hyperglycemia: (2) Pulmonary embolism: (3) Cardiomyopathy: (4) Acute respiratory failure with hypoxia: (5) Atrial fibrillation: (6) Cardiomyopathy: Qualifiers: Cardiomyopathy type: ischemic Qualified Code(s): I25.5 - Ischemic cardiomyopathy (7) Pacemaker: (8) Leg swelling: (9) COVID: Plan Acute PE COVID-19 BiPAP dependent Getting deconditioned Malnourished Diastolic congestive heart failure continue Lasix She is also getting empirical Levaquin Cultures negative so far Family and patient agreeable for intubation Date do know that it will be a very difficult extubation She is full code Start PPN until we get a PICC line for TPN Continue therapeutic Lovenox Chronic kidney disease without acute worsening . Constipation poor p.o. intake Attestations Medical Necessity Statement*: Continue ICU management Time Spent in Patient Care: 40 Coding Level of Care Code Acute Scientific Publications Editor for Chg Fwd Diagnoses Hyperglycemia R73.9 Pulmonary embolism I26.99 Cardiomyopathy I42.9 Acute respiratory failure with hypoxia J96.01 Atrial fibrillation I48.91 Cardiomyopathy I25.5 Cardiomyopathy type: ischemic Pacemaker Z95.0 Leg swelling M79.89 COVID U07.1
[2022-01-31 12:03] LABS: Glucose Point of Care 184 mg/dL (70-110)
--- NOTE | 2022-01-31 12:55 | XR_ITS ---
WS: [id number] Exam: XR chest 1V portable [id number] Date/Time of Exam: 01/31/2022 1:08 PM Reason For Exam: intubated check tube palcment and NG placement Comparison 01/29/2022. Patchy groundglass infiltrates are noted throughout both lungs showing little change since the prior study. Heart size is top limits normal. An endotracheal tube has been placed and ends about 8 cm abov e the raya in good position. An ICD superimposes the left chest. An enteric tube is noted in the st ach. XR/XR chest 1V portable [id number] IMPRESSION: 1. ET tube and enteric tube in satisfactory position. 2. Widespread groundglass infiltrates throughout both lungs showing no signific ant change.
[2022-01-31] MEDS: propofol 1,000 MG/100 ML INJ 12.36 MG IV (13:11)
--- NOTE | 2022-01-31 13:20 | PC.NURSE ---
Pt intubated by anesthesia. OG placed. Chest xray confirmed placement of both.
[2022-01-31] MEDS: rocuronium 10 mg/mL INJ 5mL 100 MG IVP (13:25)
--- NOTE | 2022-01-31 13:26 | ANES.PROC ---
Anesthesia Procedures Procedure/Date: 01/31/22 Intubation: Time Out Performed: Yes Consent: emergency procedure Sedative (amount): other (Propofol 70mg IV) Paralytic (amount): rocuronium (30mg IV) Laryngoscope: Lisa ET Tube Size: 8 ET Tube Uncuffed: No Tube Secured Depth (cm): 20 Tube Secured Location: lips Tube Placement Confirmation: visualized tube passing through cords, equal breath sounds bilaterally and confirmation by capnometry Patient Tolerated Procedure: well Intubation Complications: none
[2022-01-31 14:13] LABS: ABG PCO2 41.7 mmHg (35-45); ABG PH Result 7.47 (7.35-7.45); Alveolar-Arterial Oxygen Gradi 78.1 mmHg (5-10); Arterial Blood Gas Hematocrit 44.7 % (37-47); Blood Gas Allen Test Pos; Blood Gas Operator Identificat GD; Blood Gas Sample Site Radial, left; Blood Gas Sample Type Arterial; HCO3 ABG 30.3 mmol/L (22-26); HGB O2 Sat 94.2 % (95-100); Ionized Calcium Level - ABG 1.2 mmol/L (1.1-1.4); Methemoglobin 0.4 % (0.4-1.5); Oxygen Device VENT; Oxygen Saturation ABG 95.6; PO2 ABG 68.1 mmHg (80.0-100.0); Potassium Level - ABG 3.5 mmol/L (3.5-5.0); Total Hemoglobin 14.6 g/dL (12-16)
--- NOTE | 2022-01-31 14:23 | PC.CHAP ---
Pastoral Care Encounter/Spiritual Assessment Type of Contact [] Declined exceptional children teacher assistant visit [] Patient/Family/Request visit [] Outpatient visit [] Follow-up visit [] Physician referral [] Code/Alert [x] Routine visit [] Staff referral [] Actively dying [] Patient sleeping [] Family support [] [] Out of room [] Palliative care [] [] Receiving care in room [] Pre-surgical visit [] Trauma [] Long length of stay [] ICU visit [] Other: Relational/Emotional Strength [x] Patient feels connected with others/family/visitors/staff [] Distress [] Loneliness/isolation [] Abandonment Spirituality of Patient [] Person of Marley [] Attends Sikh of their Marley [x] Believes in Prayer [] Reads Bible or Pentecostalism materials [] There are Spiritual issues to be addressed Debug Technician Interventions [x] Prayer [x] Active listening [] Non-anxious presence [] Spiritual/emotional support [] Crisis/trauma care [] Spiritual counseling [] Bereavement support [] Provided bereavement packet [] Provided Bible/devotional materials [] Provided toy/stuffed animal, coloring book to patient or family member [] Provided Communion [] Anointing/[place] [] Salvation [x] Completed spiritual assessment [] Other: Impact on Illness or Injury [] Angry [] Fearful [] Anxious [] Often cries [] Exhaustion [] Unable to work [] Unable to attend mandaen [] Unable to walk/stand [] Unable to read [] Unable to drive [] Unable to eat/drink [] Unable to sleep [] Unable to be with family [] Patient intubated [] Other: Summary patient having hard time breathing Time spent with patient 10 min
--- NOTE | 2022-01-31 15:40 | PC.NURSE ---
PICC placement completed, Confirmed placement with xray.
--- NOTE | 2022-01-31 15:55 | XRR_ITS ---
PROCEDURE INFORMATION: Exam: XR Chest Exam date and time: 01/31/2022 4:32 PM Age: 87 years old Clinical indication: Device placement; Picc; Additional info: For picc placement TECHNIQUE: Imaging protocol: Radiologic exam of the chest. Views: 1 view. COMPARISON: CR XR chest 1V portable [id number] 01/31/2022 1:07 PM FINDINGS: Tubes, catheters and devices: Right sided PICC is in satisfactory position, with distal tip in the RA. Endotracheal tube is in satisfactory position. Feeding tube is in satisfactory position. A cardiac pacing device is again seen projecting over the left chest. Lungs: Persistent redistribution and indistinctness of the pulmonary vasculature, in association with haziness of the lungs, which in the setting of cardiomegaly is consistent with pulmonary edema. Pneumonia should be excluded clinically. Pleural spaces: Unremarkable. No pleural effusion. No pneumothorax. Heart/Mediastinum: Stable cardiomediastinal silhouette. Bones/joints: Unremarkable. XR/XR chest 1V portable [id number] IMPRESSION: 1. Imaging findings of pulmonary edema. Pneumonia should be excluded clinically. 2. Right PICC in satisfactory position.
--- NOTE | 2022-01-31 17:11 | PC.NURSE ---
BIS monitoring started. 86. Sedation increased for effect
[2022-01-31 18:33] LABS: Glucose Point of Care 186 mg/dL (70-110)
[2022-01-31] MEDS: cisatracurium 100 MG in sodium chloride 0.9% 50 ML IV (18:34)
[2022-01-31] MEDS: propofol 1,000 MG/100 ML INJ 22.24 MG IV (18:43)
--- NOTE | 2022-01-31 19:34 | PC.NURSE ---
Bedside report completed with SAMUEL Gallegos.
--- NOTE | 2022-01-31 20:06 | PC.NURSE ---
Shift Note: Pt wearing BiPap in am, she has been unable to have off with HHF or non-rebreather for 5 minutes without her O2 sats decreasing. Pt was intubated this afternoon, Sedation started.. LEvophed started. Dr Wiley ordered proning sessions to start after PICC placmemtn. NImbe was started after 1800, when her sedation was appropriate per BIS of 52. Urine output of 475 ml this shift. Family at bedside, very attentive . Frequent safety and comfort rounds continue. Orders and/or nursing care completed as indicated. Patient monitored for response to intervention and treatment(s). Education provided includes fentanyl, propofol, Levophed, and Nimbex. and paln of care. Patient and/or personal service representative verbalized understanding of plan of care and all medications Will continue to monitor.
[2022-01-31 20:43] LABS: Hematocrit 42.7 % (37.0-47.0); Hemoglobin 12.5 g/dL (11.5-15.3); Mean Corpuscular HGB Conc 29.3 g/dL (30.0-36.0); Mean Corpuscular Hemoglobin 28.2 pg (28.0-34.0); Mean Corpuscular Volume 96.4 fl (81-99); Mean Platelet Volume 10.3 fL (7.4-10.4); Platelet Count 293 10^3/cmm (130-400); Red Blood Count 4.43 10^6/uL (4.1-5.3); Red Cell Distribution Width 14.9 % (12.1-15.1); White Blood Count 10.7 10^3/uL (4.0-10.0)
[2022-01-31] MEDS: insulin glargine 100 units/1 mL 10 UNIT SUBCUT (20:47)
[2022-01-31] MEDS: atorvastatin 40 mg Tablet PO (20:48)
[2022-01-31 21:21] LABS: Glucose Point of Care 224 mg/dL (70-110)
[2022-01-31 21:41] LABS: Absolute Eosinophils 0.1 10^3/cmm (0.0-0.7); Absolute Neutrophil 9.5 10^3/cmm (1.4-6.5); Band Neutrophils Absolute 0.5 10^3/cmm (0.0-1.2); Eosinophils 1 %; Giant Platelets 1+; Lymphocytes 4 %; Monocytes Absolute 0.2 10^3/cmm (0.1-0.6); Platelet Estimate Normal (Normal); Segmented Neutrophils 84 %; Total Cells Counted 100 (0-100)
[2022-01-31 21:42] LABS: Toxic Vacuolation 2+
[2022-01-31 21:46] LABS: Lymphocytes Absolute 0.4 10^3/cmm (1.2-3.4)
[2022-01-31] MEDS: propofol 1,000 MG/100 ML INJ 27.18 MG IV (22:58)
[2022-01-31] MEDS: norepinephrine 8 MG in dextrose 5 % 500 ML 30.48 MG IV (23:33)
[2022-02-01] VITALS (73 sets, daily range): BP systolic 89–146; BP diastolic 34–65; PULSE 56–63; RESP 15–20; TEMP 36.7–37.1; O2SAT 93–97
[2022-02-01] MEDS: propofol 1,000 MG/100 ML INJ 29.65 MG IV ×7 (02:25→22:21)
[2022-02-01 05:44] LABS: Basophils # 0.1 10^3/uL (0.0-0.1); Basophils % 0.6 %; Eosinophils # 0.1 10^3/uL (0.0-0.8); Eosinophils % 1.3 %; Hematocrit 44.8 % (37.0-47.0); Hemoglobin 13.4 g/dL (11.5-15.3); Lymphocytes # 0.5 10^3/uL (0.8-4.8); Lymphocytes % 5.5 %; Mean Corpuscular HGB Conc 29.9 g/dL (30.0-36.0); Mean Corpuscular Hemoglobin 27.6 pg (28.0-34.0); Mean Corpuscular Volume 92.4 fl (81-99); Mean Platelet Volume 9.7 fL (7.4-10.4); Monocytes # 0.2 10^3/uL (0.2-0.9); Monocytes % 1.9 %; Neutrophils # 7.67 10^3/uL (1.8-7.7); Neutrophils % 85.9 %; Nucleated Red Blood Cells % 0 %; Platelet Count 310 10^3/cmm (130-400); Red Blood Count 4.85 10^6/uL (4.1-5.3); Red Cell Distribution Width 14.7 % (12.1-15.1); White Blood Count 8.9 10^3/uL (4.0-10.0)
[2022-02-01 06:10] LABS: Anion Gap 15.9 (5-19); Blood Urea Nitrogen 37 mg/dL (8-23); Calcium 8.4 mg/dL (8.5-10.5); Carbon Dioxide 26 mmol/L (22-29); Chloride 97 mmol/L (98-107); Glucose 264 mg/dL (65-115); Osmolality Calculated 298 mOsm/kg (285-295); Potassium 3.9 mmol/L (3.5-5.1); Sodium 135 mmol/L (136-145)
[2022-02-01 06:11] LABS: ABG PCO2 56.6 mmHg (35-45); ABG PH Result 7.32 (7.35-7.45); Base Excess ABG 1.5 mmol/L (-2.0-2.0); Blood Gas Allen Test Pos; Blood Gas Operator Identificat JB; Blood Gas Sample Site Radial, left; Blood Gas Sample Type Arterial; HCO3 ABG 29.3 mmol/L (22-26); Oxygen Device VENT
[2022-02-01 06:12] LABS: Blood Gas Tidal Volume 0.35
--- NOTE | 2022-02-01 07:00 | XRR_ITS ---
PROCEDURE INFORMATION: Exam: XR Chest Exam date and time: 02/01/2022 8:43 PM Age: 87 years old Clinical indication: Device placement; Ett placement (vent status); Additional info: Et tube placement TECHNIQUE: Imaging protocol: Radiologic exam of the chest. Views: 1 view. COMPARISON: CR XR chest 1V portable [id number] 01/31/2022 4:32 PM FINDINGS: Tubes, catheters and devices: Endotracheal tube terminates 3.5 cm above the raya. Right central line terminates at the cavoatrial junction. Enteric tube terminates in the stomach. Lungs: Redemonstrated patulous opacities again noted within the mid and lower lungs. Pleural spaces: Small volume pleural effusions. No pneumothorax. Heart/Mediastinum: Stable heart size. Single lead pacer device noted in the left chest wall. Bones/joints: Visualized osseous structures are intact. XR/XR chest 1V portable [id number] IMPRESSION: 1. Similar appearance of patulous opacities in the mid and lower lungs and small volume pleural effusions. 2. Proper positioning of support apparatus.
[2022-02-01] MEDS: ipratropium-albuterol 3 mL Neb INHALATION ×3 (07:22→19:51)
[2022-02-01] MEDS: budesonide 0.5 mg/2 mL Neb 0.25 MG INHALATION ×2 (07:22→19:51)
[2022-02-01] MEDS: enoxaparin 80 mg/0.8 mL Syringe SUBCUT (08:09)
[2022-02-01] MEDS: FUROsemide 10 mg/mL SDV 10mL 60 MG IVP (08:09)
[2022-02-01] MEDS: insulin lispro 100 unit/1 mL SUBCUT ×3 (08:10→17:39)
[2022-02-01 08:19] LABS: Glucose Point of Care 253 mg/dL (70-110)
--- NOTE | 2022-02-01 09:20 | PC.NUTR ---
Addendum entered and electronically signed by Chasity Wright 02/01/22 09:34: Consult for PPN until PICC line placement for TPN. For PPN, recommend starting @ 12 mls/hr and increasing 10 mls Q8H until goal rate of 42 mls/hr is reached, along with Fat Emulsion 25 grams/125 mls, Standard Electrolytes, and Multivitamins 10 mls/day. Propofol @29.65 mls/hr adds 782 kcals. If PICC line placed and TPN started, recommend starting @12 mls/hr and increasing 10 mls Q8H until goal rate of 42 mls/hr, along with Fat Emulsion 25 grams/125 mls, Standard Electrolytes, and Multivitamins 10 mls/day. Original Note: Consult received for PPN until PICC line placement for TPN. For PPN, recommend starting @ 13 mls/hr and increasing 10 mls Q8H until goal rate of 83 mls/hr is reached, along with fat emulsion 25 grams/125 mls, standard electrolytes, and multivitamins 10 mls/day. If PICC line placed and TPN started, recommend starting @12 mls/hr and increasing 10 mls Q8H until goal rate of 42 mls/hr, along with fat emulsion 25 grams/125 mls, standard electrolytes, and multivitamins 10 mls/day. Details in RD assessment.
[2022-02-01] MEDS: cefepime 1,000 MG in sodium chloride 0.9% (plus) 50 ML 100 MG IV (09:48)
[2022-02-01] MEDS: vancomycin 1,000 MG in sodium chloride 0.9% 250 ML 250 MG IV (09:48)
--- NOTE | 2022-02-01 10:28 | P.PN_ITS ---
Subjective Subjective: This morning patient is proned Significant provement of hypoxia currently FiO2 is 60% PEEP 8 She will get TPN via PICC line which was placed on 01/31 during supine phase Hemodynamically stable Mild respiratory acidosis during proning Will repeat blood gas during supine phase Most likely will do 2-3 cycles of proning Creatinine 1.6 Inadequate urine output Given extra dose of Lasix today 1 episode of fever last night added cefepime and vancomycin renally dosed requested blood cultures Currently on vasopressor Levophed Vitals/I&O/Wt Last Vital Signs Temp 98.2 F 02/01/22 00:00 Pulse 63 02/01/22 09:00 Resp 20 H 02/01/22 10:10 BP 132/43 02/01/22 09:00 Pulse Ox 97 02/01/22 10:10 O2 Del Method 02/01/22 07:25 O2 Flow Rate 15 01/30/22 10:45 FiO2 50 02/01/22 10:10 01/31/22 02/01/22 02/01/22 22:59 06:59 14:59 Intake Total 804.773 / 884.773 397.497 / 1282.270 194.167 / 194.167 Output Total 320 / 320 Balance 804.773 / 884.773 77.497 / 962.270 194.167 / 194.167 Weight last 48 hrs Weight 79.605 kg Weight 82.372 kg Physical Exam Narrative: Patient was proned at the time of my evaluation Bilateral breath sounds without active crackles Lower extremity prominent wrinkling Trace edema present Hemodynamically stable requiring vasopressors Heart rate staying in 60s with captured intermittent beats Neuro exam limited Family at the bedside Urinary Catheter Management: Demarco: Cath Placed During This Visit: yes Reason for Continuing Indwelling Catheter: Accurate Measurement of Urinary Output in Critically Ill Patients Urinary Catheter Date of Insertion: 01/30/22 Urinary Catheter Time of Insertion: 23:00 Data : 02/01/22 05:36 02/01/22 05:36 Micro: Microbiology 02/01/22 09:07 Blood Culture - Preliminary Blood SPECIMEN COLLECTED 02/01/22 09:13 Blood Culture - Preliminary Blood SPECIMEN COLLECTED A&P Assessment and plan (1) Hyperglycemia: (2) Pulmonary embolism: (3) Cardiomyopathy: (4) Acute respiratory failure with hypoxia: (5) Hypoxia: (6) Cataract: Qualifiers: Cataract type: age-related Age-related cataract type: unspecified Laterality: unspecified laterality Qualified Code(s): H25.9 - Unspecified age- related cataract (7) Cardiomyopathy: Qualifiers: Cardiomyopathy type: ischemic Qualified Code(s): I25.5 - Ischemic cardiomyopathy (8) Atrial fibrillation: (9) Pacemaker: (10) Leg swelling: Plan COVID-19 related persistent hypoxia Patient is intubated and sedated Paralyzed For cycle of proning started 01/31 We will give her TPN via PICC line which was placed 01/31 TPN when she is supine Goal is to do 2-3 cycles of proning Intermittent capture beats heart rate is in 60s Will request pacemaker evaluation when she is supine Febrile event overnight Isolated episode Concern for plan for associated pneumonia Started cefepime and vancomycin Requested blood cultures Will repeat chest x-ray and inflammatory markers COVID-19 pneumonia Finished remdesivir and Decadron regimen Currently on IV antibiotics for concern of superimposed bacterial infection ventilator pneumonia No signs of sepsis Acute on chronic kidney disease creatinine stable at 1.6 this is secondary to pulmonary edema?congestive heart failure exacerbation Given extra dose of Lasix Full code TPN diet Attestations Medical Necessity Statement*: Continue ICU management Time Spent in Patient Care: 40 Coding Level of Care Code Acute Online Trader for [facility] Fwd Diagnoses Hyperglycemia R73.9 Pulmonary embolism I26.99 Cardiomyopathy I42.9 Acute respiratory failure with hypoxia J96.01 Hypoxia R09.02 Cataract H25.9 Cataract type: age-related Age-related cataract type: unspecified Laterality: unspecified laterality Cardiomyopathy I25.5 Cardiomyopathy type: ischemic Atrial fibrillation I48.91 Pacemaker Z95.0 Leg swelling M79.89
[2022-02-01 11:41] LABS: Glucose Point of Care 198 mg/dL (70-110)
--- NOTE | 2022-02-01 11:48 | PC.CHAP ---
Pastoral Care Encounter/Spiritual Assessment Type of Contact [] Declined manager business continuity visit [] Patient/Family/Request visit [] Outpatient visit [] Follow-up visit [] Physician referral [] Code/Alert [x] Routine visit [] Staff referral [] Actively dying [x] Patient sleeping [x] Family support [] [] Out of room [] Palliative care [] [x] Receiving care in room [] Pre-surgical visit [] Trauma [] Long length of stay [x] ICU visit [x] Other: PT placed on tummy to breath easier... Relational/Emotional Strength [] Patient feels connected with others/family/visitors/staff [] Distress [] Loneliness/isolation [] Abandonment Spirituality of Patient [] Person of Marley [] Attends Restorationism of their Marley [] Believes in Prayer [] Reads Bible or Buddhist materials [] There are Spiritual issues to be addressed Clean Energy Policy Analyst Interventions [x] Prayer [] Active listening [] Non-anxious presence [] Spiritual/emotional support [] Crisis/trauma care [] Spiritual counseling [] Bereavement support [] Provided bereavement packet [] Provided Bible/devotional materials [] Provided toy/stuffed animal, coloring book to patient or family member [] Provided Communion [] Anointing/[place] [] Salvation [x] Completed spiritual assessment [] Other: Impact on Illness or Injury [] Angry [] Fearful [] Anxious [] Often cries [] Exhaustion [] Unable to work [] Unable to attend hoahaoism [] Unable to walk/stand [] Unable to read [] Unable to drive [] Unable to eat/drink [] Unable to sleep [] Unable to be with family [] Patient intubated [] Other: Summary Time spent with patient
--- NOTE | 2022-02-01 14:26 | PC.NURSE ---
[address] Wiley. Plan to interrogate pacemaker and repeat ABG when patient is supine.
[2022-02-01 17:32] LABS: Glucose Point of Care 197 mg/dL (70-110)
[2022-02-01 19:54] LABS: Glucose Point of Care 178 mg/dL (70-110)
[2022-02-01] MEDS: norepinephrine 8 MG in dextrose 5 % 500 ML 22.86 MG IV (20:33)
[2022-02-01] MEDS: FUROsemide 10 mg/mL SDV 4mL 40 MG IVP (20:34)
[2022-02-01] MEDS: insulin glargine 100 units/1 mL 10 UNIT SUBCUT (20:40)
[2022-02-01] MEDS: atorvastatin 40 mg Tablet PO (22:11)
--- NOTE | 2022-02-01 23:06 | PC.NURSE ---
Addendum entered by Neil Moran RN 02/02/22 01:02: Patient was turned supine @2000, Chest Xray completed and pace maker interrogated. Original Note: Patient was turned supine @0800 after proning for 16hrs. 4 RNs and RT positioned her successfully with no change in vitals. RT raised Vent Fio2 from 40-60%. Hospitalist rounded and suggested that dayshift providers begin TPN feedings.
[2022-02-02] VITALS (74 sets, daily range): BP systolic 82–138; BP diastolic 39–71; PULSE 60–88; RESP 18–20; TEMP 36.4–37.3; O2SAT 92–98
[2022-02-02] MEDS: propofol 1,000 MG/100 ML INJ 29.65 MG IV ×7 (01:43→21:47)
[2022-02-02 02:54] LABS: Basophils % 0.6 %; Eosinophils # 0.2 10^3/uL (0.0-0.8); Eosinophils % 3.1 %; Hematocrit 43.8 % (37.0-47.0); Hemoglobin 13.2 g/dL (11.5-15.3); Lymphocytes # 0.6 10^3/uL (0.8-4.8); Lymphocytes % 8.7 %; Mean Corpuscular HGB Conc 30.1 g/dL (30.0-36.0); Mean Corpuscular Hemoglobin 27.6 pg (28.0-34.0); Mean Corpuscular Volume 91.6 fl (81-99); Mean Platelet Volume 9.7 fL (7.4-10.4); Monocytes # 0.4 10^3/uL (0.2-0.9); Monocytes % 6.2 %; Nucleated Red Blood Cells % 0 %; Platelet Count 297 10^3/cmm (130-400); Red Blood Count 4.78 10^6/uL (4.1-5.3); Red Cell Distribution Width 14.6 % (12.1-15.1); White Blood Count 7.1 10^3/uL (4.0-10.0)
[2022-02-02 03:19] LABS: Creatine Phosphokinase 7 U/L (26-192)
[2022-02-02 03:26] LABS: NT Pro B Type Natriuretic Pept 3022 pg/mL (0-450); Procalcitonin 0.75 ng/mL (0-0.5)
[2022-02-02 03:37] LABS: Anion Gap 16.2 (5-19); Blood Urea Nitrogen 31 mg/dL (8-23); Carbon Dioxide 25 mmol/L (22-29); Chloride 95 mmol/L (98-107); Glucose 206 mg/dL (65-115); Osmolality Calculated 289 mOsm/kg (285-295); Potassium 3.2 mmol/L (3.5-5.1); Sodium 133 mmol/L (136-145)
[2022-02-02 03:57] LABS: Glucose Point of Care 195 mg/dL (70-110)
[2022-02-02 04:04] LABS: ABG PCO2 40.8 mmHg (35-45); ABG PH Result 7.48 (7.35-7.45); Arterial Blood Gas Hematocrit 41.4 % (37-47); Base Excess ABG 6.2 mmol/L (-2.0-2.0); Blood Gas Allen Test Pos; Blood Gas Operator Identificat JB; Blood Gas Sample Site Brachial, right; Blood Gas Sample Type Arterial; Blood Gas Tidal Volume 0.35; HCO3 ABG 30.3 mmol/L (22-26); Oxygen Device VENT; PO2 ABG 58.6 mmHg (80.0-100.0)
--- NOTE | 2022-02-02 04:20 | PC.NURSE ---
Restraints were discontinued upon patient proning @420 this morning. Order was not discontinued but documented as removed.
--- NOTE | 2022-02-02 04:41 | XR_ITS ---
WS: [id number] Exam: XR chest 1V portable [id number] Date/Time of Exam: 02/02/2022 4:04 AM Reason For Exam: chf Comparison 01/23/2022. Extensive bilateral pulmonary infiltrates. Very little change since the previous study although radio graphic technique is somewhat different. The heart is top limits normal size. An ET tube ends about 3 cm above the raya in good position. An NG tube is noted in the stomach but the tip is not visible. An ICD overlies the left chest. No pneumothorax. No obvious pleural effusion. Right-sided central li ne ends in the right atrium. XR/XR chest 1V portable [id number] IMPRESSION: 1. Widespread pulmonary infiltrates noted bilaterally that show little change s marianne prior study. 2. ET tube, right-sided central line and enteric tube all in satisfactory posit ion unchanged.
--- NOTE | 2022-02-02 04:49 | PC.NURSE ---
Patient was proned @0420 with 4 nurses and RT present. Tolerated well, Nimbex began with Biz ranging 30-40. Patient will need supined @2019.
--- NOTE | 2022-02-02 06:39 | PC.NURSE ---
Train of Four [facility] 0 4 35 [phone] 4 30
[2022-02-02 07:38] LABS: Glucose Point of Care 224 mg/dL (70-110)
[2022-02-02] MEDS: ipratropium-albuterol 3 mL Neb INHALATION ×3 (07:46→19:29)
[2022-02-02] MEDS: budesonide 0.5 mg/2 mL Neb 0.25 MG INHALATION ×2 (07:46→19:28)
--- NOTE | 2022-02-02 07:58 | PC.NURSE ---
Reported potassium level to Dr. Wiley. Orders to check mag level and replace potassium IV. Hold Lasix til potassium replacement has been initiated.
[2022-02-02] MEDS: enoxaparin 80 mg/0.8 mL Syringe SUBCUT (08:14)
[2022-02-02] MEDS: insulin lispro 100 unit/1 mL SUBCUT ×3 (08:14→17:54)
[2022-02-02] MEDS: cefepime 1,000 MG in sodium chloride 0.9% (plus) 50 ML 100 MG IV (08:16)
[2022-02-02] MEDS: potassium chloride premix 100 ML 25 MEQ IV ×2 (08:17→12:10)
[2022-02-02] MEDS: FUROsemide 10 mg/mL SDV 4mL 40 MG IVP ×2 (08:37→20:07)
[2022-02-02 09:26] LABS: Magnesium 2.2 mg/dL (1.7-2.3)
--- NOTE | 2022-02-02 10:05 | PC.CHAP ---
Pastoral Care Encounter/Spiritual Assessment Type of Contact [] Declined instructor creeler visit [] Patient/Family/Request visit [] Outpatient visit [] Follow-up visit [] Physician referral [] Code/Alert [x] Routine visit [] Staff referral [] Actively dying [x] Patient sleeping [] Family support [] [] Out of room [] Palliative care [] [] Receiving care in room [] Pre-surgical visit [] Trauma [] Long length of stay [x] ICU visit [x] Other: PT still on tummy... vent Relational/Emotional Strength [] Patient feels connected with others/family/visitors/staff [] Distress [] Loneliness/isolation [] Abandonment Spirituality of Patient [] Person of Marley [] Attends Samaritan of their Marley [] Believes in Prayer [] Reads Bible or Hinduism materials [] There are Spiritual issues to be addressed Cheese Tester Interventions [x] Prayer [] Active listening [] Non-anxious presence [] Spiritual/emotional support [] Crisis/trauma care [] Spiritual counseling [] Bereavement support [] Provided bereavement packet [] Provided Bible/devotional materials [] Provided toy/stuffed animal, coloring book to patient or family member [] Provided Communion [] Anointing/[place] [] Salvation [x] Completed spiritual assessment [] Other: Impact on Illness or Injury [] Angry [] Fearful [] Anxious [] Often cries [] Exhaustion [] Unable to work [] Unable to attend taoist [] Unable to walk/stand [] Unable to read [] Unable to drive [] Unable to eat/drink [] Unable to sleep [] Unable to be with family [] Patient intubated [] Other: Summary Time spent with patient
--- NOTE | 2022-02-02 10:28 | P.PN_ITS ---
Subjective Subjective: Patient is prone she is on her second cycle of proning Start TPN today Adequate diuresis Creatinine improved Currently on broad-spectrum antibiotics Vitals/I&O/Wt Last Vital Signs Temp 97.6 F 02/02/22 07:00 Pulse 60 02/02/22 09:30 Resp 18 02/02/22 07:50 BP 110/48 02/02/22 09:30 Pulse Ox 94 02/02/22 09:30 O2 Del Method 02/02/22 07:50 O2 Flow Rate 15 01/30/22 10:45 FiO2 40 02/02/22 07:50 02/01/22 02/02/22 02/02/22 22:59 06:59 14:59 Intake Total 877.383 / 1446.169 459.822 / 1905.991 433.920 / 433.920 Output Total 500 / 1500 1000 / 2500 Balance 377.383 / -53.831 -540.178 / -594.009 433.920 / 433.920 Weight last 48 hrs Weight 76.657 kg Weight 79.605 kg Weight 82.372 kg Physical Exam Narrative: Patient is calm Looks less congested as compared Bilateral breath sounds but mild rhonchi Note exam limited Patient is proned at this point Saturating well on room 40% FiO2 PEEP 8 Still requiring vasopressors, Intubated and sedated Urine color is normal Urinary Catheter Management: Demarco: Cath Placed During This Visit: yes Reason for Continuing Indwelling Catheter: Accurate Measurement of Urinary Output in Critically Ill Patients Urinary Catheter Date of Insertion: 01/30/22 Urinary Catheter Time of Insertion: 23:00 Data : 02/02/22 02:05 02/02/22 02:05 Micro: Microbiology 01/31/22 13:20 Gram Stain - Final Sputum - Endotracheal Tube Aspirate Sputum Culture - Final 02/01/22 09:13 Blood Culture - Preliminary Blood NEGATIVE TO DATE 02/01/22 09:07 Blood Culture - Preliminary Blood NEGATIVE TO DATE A&P Assessment and plan (1) Hyperglycemia: (2) Pulmonary embolism: (3) Cardiomyopathy: (4) Acute respiratory failure with hypoxia: (5) Hypoxia: (6) COVID: (7) Atrial fibrillation: (8) Cardiomyopathy: Qualifiers: Cardiomyopathy type: ischemic Qualified Code(s): I25.5 - Ischemic card iomyopathy (9) Pacemaker: (10) Leg swelling: Plan COVID-19 related hypoxia Patient is intubated and sedated, FiO2 (between 40 to 50%, she became relatively hypoxic during supine phase Will finished 4 cycles of proning We will start weaning her off mechanical ventilator starting Saturday Start TPN Diastolic congestive heart failure exacerbation Cut back on diuresis today Acute on chronic kidney disease Cardiorenal: Improving with diuresis Febrile event after intubation I am giving her broad-spectrum antibiotics to cover ventilator associated pneumonia Cultures negative No more febrile events De-escalate antibiotics starting tomorrow Full code DVT prophylaxis: With therapeutic Lovenox Acute PE currently on once a day therapeutic Lovenox regimen TPN started today 02/02 Attestations Medical Necessity Statement*: Continue medical management Critical Care Time: 30 Coding Level of Care Code Acute Sustainable Agriculture Faculty for g Fwd Diagnoses Hyperglycemia R73.9 Pulmonary embolism I26.99 Cardiomyopathy I42.9 Acute respiratory failure with hypoxia J96.01 Hypoxia R09.02 COVID U07.1 Atrial fibrillation I48.91 Cardiomyopathy I25.5 Cardiomyopathy type: ischemic Pacemaker Z95.0 Leg swelling M79.89
[2022-02-02 11:11] LABS: Glucose Point of Care 232 mg/dL (70-110)
[2022-02-02] MEDS: cisatracurium 100 MG in sodium chloride 0.9% 50 ML IV (14:52)
[2022-02-02 17:16] LABS: Glucose Point of Care 191 mg/dL (70-110)
[2022-02-02] MEDS: norepinephrine 8 MG in dextrose 5 % 500 ML 30.48 MG IV (17:53)
--- NOTE | 2022-02-02 19:27 | PC.NURSE ---
At 0800 patient's train of four was 3/4 and Nimbex drip was titrated per protocol. At 1000 patient's train of four was 2/4. BIS maintained in the 40's throughout shift.
[2022-02-02] MEDS: insulin glargine 100 units/1 mL 10 UNIT SUBCUT (21:01)
[2022-02-02] MEDS: atorvastatin 40 mg Tablet PO (21:01)
--- NOTE | 2022-02-02 21:10 | PC.NURSE ---
Patient was turned supine @2039 with 4 RNs and RT present. Tolerated well and nimbex stopped. Fi02 increased post turning from 40% to 80% on vent as Sp02 dropped to 88%. RT will titrate down as tolerated. Biz remains at 31. Currently Sp02 is at 98% map at 70.
[2022-02-02 21:11] LABS: Glucose Point of Care 214 mg/dL (70-110)
[2022-02-02 22:06] LABS: Bacillus cereus group Not Detected (NOT DETECT); Bacillus subtillis group Not Detected (NOT DETECT); Corynebacterium Not Detected (NOT DETECT); Cutibacterium acnes (P.acnes) Not Detected (NOT DETECT); Enterococcus Not Detected (NOT DETECT); Enterococcus faecalis Not Detected (NOT DETECT); Enterococcus faecium Not Detected (NOT DETECT); Lactobacillus species Not Detected (NOT DETECT); Listeria Not Detected (NOT DETECT); Listeria monocytogenes Not Detected (NOT DETECT); Micrococcus Not Detected (NOT DETECT); Pan Candida Not Detected (NOT DETECT); Pan Gram-Negative Not Detected (NOT DETECT); Staphylococcus epidermidis Detected (NOT DETECT); Staphylococcus lugdunensis Not Detected (NOT DETECT); Staphylococcus species Detected (NOT DETECT); Streptococcus agalactiae Not Detected (NOT DETECT); Streptococcus anginosus group Not Detected (NOT DETECT); Streptococcus pneumoniae Not Detected (NOT DETECT); Streptococcus pyogenes Not Detected (NOT DETECT); Streptococcus species Not Detected (NOT DETECT); mecA Detected (NOT DETECT); mecC Not Detected (NOT DETECT)
[2022-02-03] VITALS (80 sets, daily range): BP systolic 90–139; BP diastolic 39–63; PULSE 59–70; RESP 18; TEMP 36.8–37.1; O2SAT 91–97
[2022-02-03] MEDS: propofol 1,000 MG/100 ML INJ 22.24 MG IV (01:10)
[2022-02-03 02:57] LABS: Glucose Point of Care 280 mg/dL (70-110)
[2022-02-03 03:59] LABS: Basophils % 0.5 %; Eosinophils # 0.2 10^3/uL (0.0-0.8); Hematocrit 44.1 % (37.0-47.0); Hemoglobin 13.4 g/dL (11.5-15.3); Lymphocytes # 0.9 10^3/uL (0.8-4.8); Lymphocytes % 9.9 %; Mean Corpuscular HGB Conc 30.4 g/dL (30.0-36.0); Mean Corpuscular Hemoglobin 27.6 pg (28.0-34.0); Mean Corpuscular Volume 90.7 fl (81-99); Mean Platelet Volume 9.7 fL (7.4-10.4); Monocytes # 0.8 10^3/uL (0.2-0.9); Monocytes % 8.9 %; Neutrophils # 6.66 10^3/uL (1.8-7.7); Neutrophils % 77.2 %; Nucleated Red Blood Cells % 0 %; Platelet Count 293 10^3/cmm (130-400); Red Blood Count 4.86 10^6/uL (4.1-5.3); Red Cell Distribution Width 14.6 % (12.1-15.1); White Blood Count 8.6 10^3/uL (4.0-10.0)
[2022-02-03 04:16] LABS: Blood Urea Nitrogen 27 mg/dL (8-23); Calcium 7.9 mg/dL (8.5-10.5); Carbon Dioxide 29 mmol/L (22-29); Chloride 97 mmol/L (98-107); Glucose 282 mg/dL (65-115); Osmolality Calculated 293 mOsm/kg (285-295); Phosphorus 3.1 mg/dL (2.5-4.5); Sodium 134 mmol/L (136-145)
[2022-02-03 04:16] LABS: ABG PCO2 45.5 mmHg (35-45); ABG PH Result 7.44 (7.35-7.45); Arterial Blood Gas Hematocrit 43.6 % (37-47); Base Excess ABG 5.8 mmol/L (-2.0-2.0); Blood Gas Allen Test Pos; Blood Gas Operator Identificat MONRO; Blood Gas Sample Site Radial, left; Blood Gas Sample Type Arterial; Blood Gas Tidal Volume 0.35; HCO3 ABG 30.9 mmol/L (22-26); Oxygen Device VENT; PO2 ABG 63.4 mmHg (80.0-100.0)
[2022-02-03] MEDS: cisatracurium 100 MG in sodium chloride 0.9% 50 ML IV (04:38)
--- NOTE | 2022-02-03 05:08 | PC.NURSE ---
0500 patient was proned involving 4 RNs and RT present. Nimbex titrated to .8 with trane of 4 at 4/4 and Biz 35-40. Patient tolerated well with only slight increase in heart rate. Fi02 currently at 50% with spo2 of 95%. Lungs sounds remain course.
[2022-02-03] MEDS: propofol 1,000 MG/100 ML INJ 24.71 MG IV ×5 (06:10→21:20)
--- NOTE | 2022-02-03 07:08 | PC.NURSE ---
Time [facility] Train of 02/02 1930 33 08/07 02/03 0430 42 08/07 0500 42 08/07 0700 44 08/07
[2022-02-03 07:35] LABS: Glucose Point of Care 284 mg/dL (70-110)
[2022-02-03] MEDS: insulin lispro 100 unit/1 mL SUBCUT ×3 (07:57→17:54)
[2022-02-03] MEDS: enoxaparin 80 mg/0.8 mL Syringe SUBCUT (07:57)
[2022-02-03] MEDS: FUROsemide 10 mg/mL SDV 4mL 40 MG IVP ×2 (07:57→11:30)
[2022-02-03] MEDS: cefepime 1,000 MG in sodium chloride 0.9% (plus) 50 ML 100 MG IV (07:58)
[2022-02-03] MEDS: budesonide 0.5 mg/2 mL Neb 0.25 MG INHALATION ×2 (08:31→20:09)
[2022-02-03] MEDS: ipratropium-albuterol 3 mL Neb INHALATION ×3 (08:31→20:09)
--- NOTE | 2022-02-03 08:42 | PC.SOCIAL ---
IMM not given Pt is still intubated at this time. IMM was not updated with family. Pt is not expected to d/c in 24-48hrs. Did leave a copy of the IMM at bedside for family to review.
[2022-02-03] MEDS: vancomycin 1,000 MG in sodium chloride 0.9% 250 ML 250 MG IV (10:08)
[2022-02-03 10:14] LABS: Lactate Dehydrogenase 393 U/L (135-214)
[2022-02-03 11:18] LABS: Glucose Point of Care 273 mg/dL (70-110)
--- NOTE | 2022-02-03 11:38 | PM.PN ---
Subjective Subjective: Creatinine improving Adequate urine output No leukocytosis Afebrile Chest x-ray showing bilateral infiltrates ARDS PO2 63 during proning Vitals/I&O/Wt Last Vital Signs Temp 98.5 F 02/03/22 07:00 Pulse 61 02/03/22 08:37 Resp 18 02/03/22 11:11 BP 136/59 02/03/22 08:00 Pulse Ox 97 02/03/22 11:11 O2 Del Method 02/03/22 08:00 O2 Flow Rate 15 01/30/22 10:45 FiO2 45 02/03/22 11:11 02/02/22 02/03/22 02/03/22 22:59 06:59 14:59 Intake Total 600.229 / 1330.700 329.987 / 1660.687 336.141 / 336.141 Output Total 300 / 700 700 / 1400 Balance 300.229 / 630.700 -370.013 / 260.687 336.141 / 336.141 Weight last 48 hrs Weight 78.046 kg Weight 76.657 kg Physical Exam Narrative: Patient is proned PO2 40 to 50% PEEP 8 Saturating well Hemodynamically stable Looks less fluid overloaded Wrinkles of skin noted especially of her legs Onychomycosis No active pressure ulcers from face for now TPN running at the bedside Still on levo Nimbex, propofol and fentanyl at bedside Urinary Catheter Management: Demarco: Cath Placed During This Visit: yes Reason for Continuing Indwelling Catheter: Accurate Measurement of Urinary Output in Critically Ill Patients Urinary Catheter Date of Insertion: 01/30/22 Urinary Catheter Time of Insertion: 23:00 Data : 02/03/22 02:58 02/03/22 02:58 Micro: Microbiology 02/01/22 09:13 Blood Culture - Preliminary Blood NEGATIVE TO DATE 01/31/22 13:20 Gram Stain - Final Sputum - Endotracheal Tube Aspirate Sputum Culture - Final 02/01/22 09:07 Blood Culture - Preliminary Blood NEGATIVE TO DATE A&P Assessment and plan (1) Hyperglycemia: (2) Pulmonary embolism: (3) Cardiomyopathy: (4) Acute respiratory failure with hypoxia: (5) Hypoxia: (6) COVID: (7) ARDS (adult respiratory distress syndrome): (8) Leg swelling: (9) CAD (coronary artery disease): (10) Atrial fibrillation: (11) Cardiomyopathy: Qualifiers: Cardiomyopathy type: ischemic Qualified Code(s): I25.5 - Ischemic cardiomyopathy (12) Pacemaker: Plan Persistent hypoxia related to COVID-19 Requested LDH, galactomannan and Aspergillus Afebrile Currently on broad-spectrum antibiotics Cultures negative so far X-ray showing ARDS pattern bilateral infiltrates All cultures negative to date Acute on chronic kidney disease improving with diuresis Nutrition: Continue TPN ARDS Continue proning cycles to finished, patient does respond to proning to some extent Will do another cycle of proning today Start weaning off on Saturday Wean off pressors Acute PE continue therapeutic Lovenox Full code Attestations Medical Necessity Statement*: Continue chronic Time Spent in Patient Care: 40 Coding Level of Care Code Acute Bilingual Call Center Representative for [facility] Fwd Diagnoses Hyperglycemia R73.9 Pulmonary embolism I26.99 Cardiomyopathy I42.9 Acute respiratory failure with hypoxia J96.01 Hypoxia R09.02 COVID U07.1 ARDS (adult respiratory distress syndrome) J80 Leg swelling M79.89 CAD (coronary artery disease) I25.10 Atrial fibrillation I48.91 Cardiomyopathy I25.5 Cardiomyopathy type: ischemic Pacemaker Z95.0
[2022-02-03 17:48] LABS: Glucose Point of Care 291 mg/dL (70-110)
[2022-02-03] MEDS: insulin glargine 100 units/1 mL 18 UNIT SUBCUT (21:20)
[2022-02-03] MEDS: atorvastatin 40 mg Tablet PO (21:20)
[2022-02-03 21:35] LABS: Glucose Point of Care 333 mg/dL (70-110)
--- NOTE | 2022-02-03 21:50 | PC.NURSE ---
Patient was position supine @ 2110 with assistance of 4 RNs and RT present. Nimbex stopped prior to turning. Patient tolerated well and is currently on 40% fio2 with an sp02 of 92%.
[2022-02-03] MEDS: norepinephrine 8 MG in dextrose 5 % 500 ML 30.48 MG IV (22:05)
[2022-02-04] VITALS (96 sets, daily range): BP systolic 83–135; BP diastolic 40–65; PULSE 59–67; RESP 18–20; TEMP 36.5–37.3; O2SAT 89–96
[2022-02-04] MEDS: propofol 1,000 MG/100 ML INJ 19.77 MG IV (01:30)
[2022-02-04 02:19] LABS: Glucose Point of Care 342 mg/dL (70-110)
[2022-02-04 02:19] LABS: Glucose Point of Care 294 mg/dL (70-110)
[2022-02-04] MEDS: insulin lispro 100 unit/1 mL 10 UNIT SUBCUT (03:30)
[2022-02-04 03:58] LABS: ABG PCO2 43.2 mmHg (35-45); ABG PH Result 7.49 (7.35-7.45); Arterial Blood Gas Hematocrit 40.8 % (37-47); Base Excess ABG 8.2 mmol/L (-2.0-2.0); Blood Gas Allen Test Pos; Blood Gas Sample Site Radial, right; Blood Gas Sample Type Arterial; Blood Gas Tidal Volume 0.35; HCO3 ABG 32.6 mmol/L (22-26); Oxygen Device VENT; PO2 ABG 56.3 mmHg (80.0-100.0)
--- NOTE | 2022-02-04 04:00 | XRR_ITS ---
PROCEDURE INFORMATION: Exam: XR Chest Exam date and time: 02/04/2022 4:16 AM Age: 87 years old Clinical indication: Dyspnea; Patient HX: History--follow up intubated patient; Additional info: [place] TECHNIQUE: Imaging protocol: Radiologic exam of the chest. Views: 1 view. COMPARISON: CR XR chest 1V portable [id number] 02/02/2022 4:16 AM FINDINGS: The thorax is partially obscured by overlying EKG leads. Tubes, catheters and devices: Endotracheal tube, feeding tube, right PICC line, and pacemaker. The endotracheal tube terminates 5.3 cm above the raya. Lungs: Emphysematous change, interstitial disease, and asymmetric airspace disease (right greater than left). Pleural spaces: Left pleural effusion. No pneumothorax. Heart/Mediastinum: Cardiac silhouette upper limits of normal size. Vasculature: Calcification of the thoracic aorta. Bones/joints: Degenerative change. XR/XR chest 1V portable [id number] IMPRESSION: 1. Emphysematous change, interstitial disease, and asymmetric airspace disease (right greater than left). 2. Left pleural effusion. 3. Endotracheal tube, feeding tube, right PICC line, and pacemaker. The endotracheal tube terminates 5.3 cm above the raya.
[2022-02-04 04:58] LABS: Basophils % 0.4 %; Eosinophils # 0.1 10^3/uL (0.0-0.8); Eosinophils % 1.1 %; Hematocrit 41.3 % (37.0-47.0); Hemoglobin 12.5 g/dL (11.5-15.3); Lymphocytes # 0.8 10^3/uL (0.8-4.8); Lymphocytes % 9.6 %; Mean Corpuscular HGB Conc 30.3 g/dL (30.0-36.0); Mean Corpuscular Hemoglobin 27.5 pg (28.0-34.0); Mean Corpuscular Volume 90.8 fl (81-99); Mean Platelet Volume 9.9 fL (7.4-10.4); Monocytes # 0.8 10^3/uL (0.2-0.9); Monocytes % 8.9 %; Neutrophils # 6.65 10^3/uL (1.8-7.7); Neutrophils % 79.2 %; Nucleated Red Blood Cells % 0 %; Platelet Count 245 10^3/cmm (130-400); Red Blood Count 4.55 10^6/uL (4.1-5.3); Red Cell Distribution Width 14.6 % (12.1-15.1); White Blood Count 8.4 10^3/uL (4.0-10.0)
[2022-02-04 05:18] LABS: Anion Gap 7.3 (5-19); Blood Urea Nitrogen 27 mg/dL (8-23); Calcium 7.8 mg/dL (8.5-10.5); Carbon Dioxide 32 mmol/L (22-29); Chloride 94 mmol/L (98-107); Glucose 320 mg/dL (65-115); Osmolality Calculated 287 mOsm/kg (285-295); Potassium 3.3 mmol/L (3.5-5.1); Sodium 130 mmol/L (136-145)
--- NOTE | 2022-02-04 06:02 | PC.NURSE ---
Patient proned @0530 by 4 RNs and RT. Tolerated well, titrated up Prop due to increasing Biz. Padded neck and turned to avoid skin tear. Vent settings %50 Fio2, 350 tidal, 18 RR, 8 peep. Nimbex at 1 with trane of 4 of 08/07.
--- NOTE | 2022-02-04 06:05 | PC.NURSE ---
Time Trane of 4 Biz 1900 08/07 47 0452 08/07 46 0515 08/07 50 0600 08/07 42
[2022-02-04] MEDS: propofol 1,000 MG/100 ML INJ 24.71 MG IV ×2 (07:10→23:14)
[2022-02-04] MEDS: enoxaparin 80 mg/0.8 mL Syringe SUBCUT ×2 (08:03→20:16)
[2022-02-04] MEDS: sennosides-docusate Tablet 1 TAB PO (08:03)
[2022-02-04] MEDS: cefepime 1,000 MG in sodium chloride 0.9% (plus) 50 ML 100 MG IV (08:03)
[2022-02-04] MEDS: insulin lispro 100 unit/1 mL SUBCUT ×3 (08:04→17:02)
[2022-02-04 08:12] LABS: Glucose Point of Care 251 mg/dL (70-110)
[2022-02-04] MEDS: ipratropium-albuterol 3 mL Neb INHALATION ×3 (08:53→20:22)
[2022-02-04] MEDS: budesonide 0.5 mg/2 mL Neb 0.25 MG INHALATION ×2 (08:54→20:22)
--- NOTE | 2022-02-04 10:13 | PM.PN ---
Subjective Subjective: Patient is proned FiO2 40% PEEP of 8 On 6 of levo Propofol has been turned up I have asked nurse to turn off Nimbex during supine phase Will do last cycle of proning tonight Continue TPN Noticed low sodium, will give her potassium Vitals/I&O/Wt Last Vital Signs Temp 97.7 F 02/04/22 04:30 Pulse 60 02/04/22 09:15 Resp 18 02/04/22 08:54 BP 116/41 02/04/22 09:15 Pulse Ox 95 02/04/22 09:15 O2 Del Method 02/04/22 08:00 O2 Flow Rate 15 01/30/22 10:45 FiO2 50 02/04/22 08:54 02/03/22 02/04/22 02/04/22 22:59 06:59 14:59 Intake Total 542.333 / 1722.135 435.149 / 2157.284 103.538 / 103.538 Output Total 600 / 1350 500 / 1850 60 / 60 Balance -57.667 / 372.135 -64.851 / 307.284 43.538 / 43.538 Weight last 48 hrs Weight 78.018 kg Weight 78.046 kg Physical Exam Narrative: Patient has been on FiO2 40% Does not look fluid overloaded today Auscultation from the posterior surface did not show significant crackles Lower extremity less edema No pressure ulcer on face Demarco catheter draining dilute urine TPN running at the bedside Levo at 6 Patient is intubated and sedated and paralyzed Urinary Catheter Management: Demarco: Cath Placed During This Visit: yes Reason for Continuing Indwelling Catheter: Accurate Measurement of Urinary Output in Critically Ill Patients Urinary Catheter Date of Insertion: 01/30/22 Urinary Catheter Time of Insertion: 23:00 Data : 02/04/22 04:35 02/04/22 04:35 A&P Assessment and plan (1) ARDS (adult respiratory distress syndrome): (2) Hyperglycemia: (3) Pulmonary embolism: (4) Cardiomyopathy: (5) Acute respiratory failure with hypoxia: (6) COVID: (7) Atrial fibrillation: (8) Cardiomyopathy: Qualifiers: Cardiomyopathy type: ischemic Qualified Code(s): I25.5 - Ischemic cardiomyopathy (9) Pacemaker: Plan ARDS COVID-19 related groundglass opacities FiO2 40% Last cycle of proning tonight Continue TPN, hyponatremia hypokalemia TPN needs to be readjusted tomorrow Continue IV antibiotics No febrile events No signs of sepsis Acute PE therapeutic Lovenox Hypokalemia: Repleted Might have to adjust TPN to correct her sodium She is on low-dose of Lasix Acute on chronic kidney disease: Cardiorenal, improved with diuresis Full code Attestations Medical Necessity Statement*: Start weaning trial tomorrow Time Spent in Patient Care: 40 Coding Level of Care Code Acute Subassembly Assembler for g Fwd Diagnoses ARDS (adult respiratory distress syndrome) J80 Hyperglycemia R73.9 Pulmonary embolism I26.99 Cardiomyopathy I42.9 Acute respiratory failure with hypoxia J96.01 COVID U07.1 Atrial fibrillation I48.91 Cardiomyopathy I25.5 Cardiomyopathy type: ischemic Pacemaker Z95.0
[2022-02-04] MEDS: FUROsemide 10 mg/mL SDV 2mL 20 MG IVP (10:35)
[2022-02-04] MEDS: lidocaine 1% 5 ML in potassium chloride premix 100 ML 25 ML IV (10:37)
[2022-02-04 12:23] LABS: Glucose Point of Care 255 mg/dL (70-110)
[2022-02-04] MEDS: propofol 1,000 MG/100 ML INJ 17.3 MG IV ×2 (12:46→18:10)
[2022-02-04] MEDS: cisatracurium 100 MG in sodium chloride 0.9% 50 ML IV (12:46)
[2022-02-04] MEDS: norepinephrine 8 MG in dextrose 5 % 500 ML 38.1 MG IV (17:58)
[2022-02-04 20:50] LABS: Glucose Point of Care 258 mg/dL (70-110)
[2022-02-04] MEDS: atorvastatin 40 mg Tablet PO (20:52)
[2022-02-04] MEDS: insulin glargine 100 units/1 mL 20 UNIT SUBCUT (20:52)
[2022-02-04] MEDS: vancomycin 1,000 MG in sodium chloride 0.9% 250 ML 250 MG IV (22:12)
--- NOTE | 2022-02-04 23:33 | PC.NURSE ---
Patient was turned supine @2145 with 4 RNs and RT present. Nimbex was turned off and order for soft wrist restraints was received. Patient tolerated repositioning well and remains on %50 Fi02. Some edema was present on neck and lips. No new skin tears observed although there was minor bruising around the left eye. Time Trane of 4 Biz 1900 08/07 56 2100 08/07 52
[2022-02-05] VITALS (107 sets, daily range): BP systolic 77–159; BP diastolic 40–69; PULSE 55–68; RESP 18–19; TEMP 36.8–37.2; O2SAT 87–95
[2022-02-05 02:19] LABS: Glucose Point of Care 319 mg/dL (70-110)
[2022-02-05] MEDS: artificial tears Op Oint 3.5 gm 1 APPLIC EYE-BOTH (02:22)
[2022-02-05] MEDS: insulin lispro 100 unit/1 mL 10 UNIT SUBCUT (02:27)
[2022-02-05 03:37] LABS: Anion Gap 11.6 (5-19); Blood Urea Nitrogen 26 mg/dL (8-23); Calcium 7.8 mg/dL (8.5-10.5); Carbon Dioxide 28 mmol/L (22-29); Chloride 94 mmol/L (98-107); Glucose 333 mg/dL (65-115); Magnesium 2.1 mg/dL (1.7-2.3); Osmolality Calculated 286 mOsm/kg (285-295); Phosphorus 2.7 mg/dL (2.5-4.5); Potassium 4.6 mmol/L (3.5-5.1); Sodium 129 mmol/L (136-145)
[2022-02-05 03:37] LABS: ABG PCO2 47.8 mmHg (35-45); ABG PH Result 7.42 (7.35-7.45); Arterial Blood Gas Hematocrit 38.5 % (37-47); Base Excess ABG 5.6 mmol/L (-2.0-2.0); Blood Gas Allen Test Pos; Blood Gas Sample Site Radial, right; Blood Gas Sample Type Arterial; Blood Gas Tidal Volume 0.35; HCO3 ABG 31.1 mmol/L (22-26); Oxygen Device VENT; PO2 ABG 60.5 mmHg (80.0-100.0)
[2022-02-05] MEDS: propofol 1,000 MG/100 ML INJ 19.77 MG IV (05:22)
--- NOTE | 2022-02-05 05:34 | PC.NURSE ---
Patient's MAP continued to drive below 65. Levo was titrated to 12mcg/min and improved MAP. Sp02 has also trended downward and RT notified. Sp02 dropped as low as 85%. Suctioning did not seem to improve.
--- NOTE | 2022-02-05 06:22 | XR_ITS ---
WS: [id number] XR chest 1V portable [id number] REASON FOR EXAM: sob FINDINGS: The chest is relatively unchanged compared to the examination of 4:19 AM 02/04/2022. Endotracheal tube, nasogastric tube, and right PICC line line remain in proper position. Cardiac amría ce over the left chest with left subclavian vein leads to the right ventricular apex. Reticular lung opacities with diffuse areas of groundglass density in both lungs. Probable small bilateral pleural effusions. XR/XR chest 1V portable [id number] IMPRESSION: Stable abnormal chest as above. CHF and/or subacute pneumonitis.
[2022-02-05 06:23] LABS: Glucose Point of Care 244 mg/dL (70-110)
[2022-02-05] MEDS: norepinephrine 8 MG in dextrose 5 % 500 ML 45.72 MG IV (07:32)
[2022-02-05] MEDS: ipratropium-albuterol 3 mL Neb INHALATION ×3 (08:29→20:18)
[2022-02-05] MEDS: budesonide 0.5 mg/2 mL Neb 0.25 MG INHALATION ×2 (08:29→20:18)
[2022-02-05 08:34] LABS: Glucose Point of Care 280 mg/dL (70-110)
[2022-02-05] MEDS: enoxaparin 80 mg/0.8 mL Syringe SUBCUT ×2 (08:34→19:53)
[2022-02-05] MEDS: insulin lispro 100 unit/1 mL SUBCUT ×3 (08:34→17:28)
[2022-02-05] MEDS: cefepime 1,000 MG in sodium chloride 0.9% (plus) 50 ML 100 MG IV (08:34)
[2022-02-05] MEDS: sennosides-docusate Tablet 1 TAB PO (08:34)
[2022-02-05] MEDS: propofol 1,000 MG/100 ML INJ 22.24 MG IV ×3 (09:14→23:42)
--- NOTE | 2022-02-05 10:36 | PC.CHAP ---
Pastoral Care Encounter/Spiritual Assessment Type of Contact [] Declined graphic coordinator visit [] Patient/Family/Request visit [] Outpatient visit [] Follow-up visit [] Physician referral [] Code/Alert [x] Routine visit [] Staff referral [] Actively dying [x] Patient sleeping [] Family support [] [] Out of room [] Palliative care [] [] Receiving care in room [] Pre-surgical visit [] Trauma [] Long length of stay [x] ICU visit [x] Other: PT on vent... resting. Relational/Emotional Strength [] Patient feels connected with others/family/visitors/staff [] Distress [] Loneliness/isolation [] Abandonment Spirituality of Patient [] Person of Marley [] Attends Holiness of their Marley [] Believes in Prayer [] Reads Bible or Taoist materials [] There are Spiritual issues to be addressed Varnish Mixer Interventions [x] Prayer [] Active listening [] Non-anxious presence [] Spiritual/emotional support [] Crisis/trauma care [] Spiritual counseling [] Bereavement support [] Provided bereavement packet [] Provided Bible/devotional materials [] Provided toy/stuffed animal, coloring book to patient or family member [] Provided Communion [] Anointing/[place] [] Salvation [x] Completed spiritual assessment [] Other: Impact on Illness or Injury [] Angry [] Fearful [] Anxious [] Often cries [] Exhaustion [] Unable to work [] Unable to attend episcopalian [] Unable to walk/stand [] Unable to read [] Unable to drive [] Unable to eat/drink [] Unable to sleep [] Unable to be with family [] Patient intubated [] Other: Summary Time spent with patient
[2022-02-05] MEDS: FUROsemide 10 mg/mL SDV 2mL 20 MG IVP (10:50)
[2022-02-05 11:54] LABS: Glucose Point of Care 215 mg/dL (70-110)
--- NOTE | 2022-02-05 11:59 | P.PN_ITS ---
Subjective Subjective: Patient is supine She became hypoxic overnight requiring 70% FiO2 at this point she is on 60% FiO2 with PEEP fluctuating between 8-10 She is still requiring Levophed I have asked nurse to wean down vasopressors today Hyponatremia secondary to D5 in the medications, Will ask pharmacy to change D5 to normal saline if that is compatible Afebrile Cultures negative Chest x-ray showing bilateral infiltrates consistent with ARDS Plan is to keep her supine today and wean off vasopressors once FiO2 below 50% and off vasopressors we will do sedation vacation and weaning trial she is not ready yet, conducted family meeting, Will elect to give her 2 more days to decide whether we are heading towards t racheostomy and LTAC placement Vitals/I&O/Wt Last Vital Signs Temp 98.7 F 02/05/22 08:00 Pulse 60 02/05/22 09:45 Resp 18 02/05/22 11:17 BP 95/50 02/05/22 09:45 Pulse Ox 93 02/05/22 11:17 O2 Del Method 02/05/22 08:00 O2 Flow Rate 15 01/30/22 10:45 FiO2 60 02/05/22 11:17 02/04/22 02/05/22 02/05/22 22:59 06:59 14:59 Intake Total 285.674 / 2014.824 813.744 / 2828.568 1261.645 / 1261.645 Output Total 600 / 660 750 / 1410 Balance -314.326 / 1354.824 63.744 / 2941.761 3061.645 / 1261.645 Weight last 48 hrs Weight 75.296 kg Weight 78.018 kg Physical Exam Narrative: Patient is intubated and sedated She is now paralyzed 40 to 60% PEEP 8 On vasopressors Clinically does not look severely fluid overloaded Abdomen soft active bowel sounds Bilateral breath sound with rhonchi Note exam is limited Lower extremity showing improvement of edema Urinary Catheter Management: Demaroc: Cath Placed During This Visit: yes Reason for Continuing Indwelling Catheter: Accurate Measurement of Urinary Output in Critically Ill Patients Urinary Catheter Date of Insertion: 01/30/22 Urinary Catheter Time of Insertion: 23:00 Data : 02/04/22 04:35 02/05/22 02:16 Micro: Microbiology 02/03/22 12:15 MRSA Culture - Final Nose 02/01/22 09:13 Blood Culture - Preliminary Blood A&P Assessment and plan (1) ARDS (adult respiratory distress syndrome): (2) Hyperglycemia: (3) Pulmonary embolism: (4) Cardiomyopathy: (5) Acute respiratory failure with hypoxia: (6) Hypoxia: (7) COVID: (8) Atrial fibrillation: (9) Cardiomyopathy: Qualifiers: Cardiomyopathy type: ischemic Qualified Code(s): I25.5 - Ischemic cardiomyopathy (10) Pacemaker: (11) Carotid stenosis, left: Plan Persistent hypoxia related to COVID-19 Finished 4 cycles of proning 02/05 Patient is intubated sedated She is now paralyzed Status post fourth cycle of proning She did respond to proning however during supine she is requiring 60% FiO2 PEEP 8 ARDS related to COVID-19 Has remained afebrile Cultures negative I have conducted family meeting, she might be leaning towards tracheostomy and LTAC placement with PEG and trach Will give her 2 more days to decide on above-mentioned plan Febrile event there was concern for ventilator associated pneumonia No fever since we have started vancomycin and cefepime MRSA PCR negative will discontinue vancomycin, she received Levaquin throughout her hospitalization Awaiting Aspergillus and recommended Hyponatremia I have asked pharmacy, unfortunately we cannot change medications from D5 NS I will give her hypertonic saline 100 mL bolus today Diastolic congestive heart failure exacerbation Currently patient looks euvolemic Continue same dose of Lasix today adequate urine output Acute on chronic kidney disease: Resolved with diuresis Continue TPN at 42 mL/h Acute PE continue Lovenox Electrolytes: Replenished Patient is requiring vasopressors secondary to use of sedatives and paralytics we are trying to wean her off No active signs of sepsis, she does have acute PE Considering ARDS, persistent hypoxia her prognosis seems guarded but we will give her 48 hours to decide whether she would be a candidate for PEG and trach Family meeting conducted Pacemaker dependent pacemaker evaluation was done which was unremarkable Hyperglycemia due to D5 in medications, I have increased her sliding scale and Lantus dose ICU nurse updated Attestations Medical Necessity Statement*: Continue ICU management Time Spent in Patient Care: 40 Coding Level of Care Code Acute Client Service Associate for [facility] Fwd Diagnoses ARDS (adult respiratory distress syndrome) J80 Hyperglycemia R73.9 Pulmonary embolism I26.99 Cardiomyopathy I42.9 Acute respiratory failure with hypoxia J96.01 Hypoxia R09.02 COVID U07.1 Atrial fibrillation I48.91 Cardiomyopathy I25.5 Cardiomyopathy type: ischemic Pacemaker Z95.0 Carotid stenosis, left I65.22
[2022-02-05] MEDS: sodium chloride 3% 100 ML in empty flexible container 1 EACH 25 ML IV (13:54)
[2022-02-05 17:22] LABS: Glucose Point of Care 231 mg/dL (70-110)
[2022-02-05] MEDS: propofol 1,000 MG/100 ML INJ 24.71 MG IV (18:09)
[2022-02-05] MEDS: atorvastatin 40 mg Tablet PO (21:53)
[2022-02-05] MEDS: insulin glargine 100 units/1 mL 22 UNIT SUBCUT (21:56)
[2022-02-05 23:06] LABS: Glucose Point of Care 245 mg/dL (70-110)
[2022-02-06] VITALS (109 sets, daily range): BP systolic 74–141; BP diastolic 40–76; PULSE 57–64; RESP 18–25; TEMP 36.3–36.9; O2SAT 89–96
[2022-02-06] MEDS: insulin lispro 100 unit/1 mL SUBCUT ×2 (00:20→05:34)
[2022-02-06 01:01] LABS: Glucose Point of Care 223 mg/dL (70-110)
[2022-02-06] MEDS: norepinephrine 8 MG in dextrose 5 % 500 ML 22.86 MG IV (02:24)
[2022-02-06] MEDS: ipratropium-albuterol 3 mL Neb INHALATION ×4 (03:17→19:37)
[2022-02-06] MEDS: propofol 1,000 MG/100 ML INJ 22.24 MG IV (03:50)
[2022-02-06 04:11] LABS: Basophils # 0.1 10^3/uL (0.0-0.1); Basophils % 0.7 %; Eosinophils # 0.2 10^3/uL (0.0-0.8); Eosinophils % 1.6 %; Hemoglobin 11.5 g/dL (11.5-15.3); Lymphocytes # 1.1 10^3/uL (0.8-4.8); Lymphocytes % 11.3 %; Mean Corpuscular HGB Conc 30.3 g/dL (30.0-36.0); Mean Corpuscular Hemoglobin 27.3 pg (28.0-34.0); Mean Platelet Volume 10.1 fL (7.4-10.4); Monocytes % 9.7 %; Neutrophils # 7.34 10^3/uL (1.8-7.7); Neutrophils % 73.5 %; Nucleated Red Blood Cells % 0 %; Platelet Count 210 10^3/cmm (130-400); Red Blood Count 4.22 10^6/uL (4.1-5.3); Red Cell Distribution Width 14.6 % (12.1-15.1)
[2022-02-06 04:35] LABS: Anion Gap 9.3 (5-19); Blood Urea Nitrogen 27 mg/dL (8-23); Calcium 7.8 mg/dL (8.5-10.5); Carbon Dioxide 31 mmol/L (22-29); Chloride 95 mmol/L (98-107); Glucose 189 mg/dL (65-115); Osmolality Calculated 282 mOsm/kg (285-295); Potassium 4.3 mmol/L (3.5-5.1); Sodium 131 mmol/L (136-145)
[2022-02-06 05:56] LABS: Glucose Point of Care 204 mg/dL (70-110)
[2022-02-06 05:56] LABS: Glucose Point of Care 250 mg/dL (70-110)
--- NOTE | 2022-02-06 06:15 | PC.NURSE ---
Spoke with Family Spoke with patient son Sudhir, who asked to have a technical laboratory asst consulted on his mothers case and said, we have all spoken and want this . Provided update, answered all questions.
[2022-02-06] MEDS: budesonide 0.5 mg/2 mL Neb 0.25 MG INHALATION ×2 (07:54→19:38)
[2022-02-06] MEDS: cefepime 1,000 MG in sodium chloride 0.9% (plus) 50 ML 100 MG IV (08:19)
[2022-02-06] MEDS: enoxaparin 80 mg/0.8 mL Syringe SUBCUT ×2 (08:19→20:31)
[2022-02-06] MEDS: sennosides-docusate Tablet 1 TAB PO (08:19)
--- NOTE | 2022-02-06 10:37 | PC.CHAP ---
Pastoral Care Encounter/Spiritual Assessment Type of Contact [] Declined principal systems architect visit [] Patient/Family/Request visit [] Outpatient visit [] Follow-up visit [] Physician referral [] Code/Alert [x] Routine visit [] Staff referral [] Actively dying [x] Patient sleeping [] Family support [] [] Out of room [] Palliative care [] [] Receiving care in room [] Pre-surgical visit [] Trauma [] Long length of stay [x] ICU visit [x] Other:PT still on vent... prayed over her Relational/Emotional Strength [] Patient feels connected with others/family/visitors/staff [] Distress [] Loneliness/isolation [] Abandonment Spirituality of Patient [] Person of Marley [] Attends Jain of their Marley [] Believes in Prayer [] Reads Bible or Gnosticist materials [] There are Spiritual issues to be addressed Science Instructor Interventions [x] Prayer [] Active listening [] Non-anxious presence [] Spiritual/emotional support [] Crisis/trauma care [] Spiritual counseling [] Bereavement support [] Provided bereavement packet [] Provided Bible/devotional materials [] Provided toy/stuffed animal, coloring book to patient or family member [] Provided Communion [] Anointing/[place] [] Salvation [x] Completed spiritual assessment [] Other: Impact on Illness or Injury [] Angry [] Fearful [] Anxious [] Often cries [] Exhaustion [] Unable to work [] Unable to attend mandaeism [] Unable to walk/stand [] Unable to read [] Unable to drive [] Unable to eat/drink [] Unable to sleep [] Unable to be with family [] Patient intubated [] Other: Summary Time spent with patient
[2022-02-06] MEDS: FUROsemide 10 mg/mL SDV 10mL 60 MG IVP ×2 (11:33→23:21)
[2022-02-06] MEDS: insulin regular-human 250 UNIT in sodium chloride 0.9% 250 ML 5.88 UNIT IV (12:18)
--- NOTE | 2022-02-06 12:58 | PM.PN ---
Subjective Subjective: I have increased her dose of Lasix because of positive fluid balance Started steroids Started insulin drip FiO2 60% We have discontinued her propofol Currently on levo at 4 mics Sodium 130 Vitals/I&O/Wt Last Vital Signs Temp 97.3 F L 02/06/22 11:39 Pulse 62 02/06/22 11:39 Resp 25 H 02/06/22 11:39 BP 114/50 02/06/22 11:39 Pulse Ox 94 02/06/22 11:39 O2 Del Method 02/06/22 11:39 O2 Flow Rate 15 01/30/22 10:45 FiO2 60 02/06/22 11:39 02/05/22 02/06/22 02/06/22 22:59 06:59 14:59 Intake Total 388.752 / 1966.043 526.089 / 2492.132 1528.330 / 1528.330 Output Total 775 / 775 850 / 1625 Balance -386.248 / 1191.043 -323.911 / 112.627 7985.330 / 1528.330 Weight last 48 hrs Weight 84.867 kg Weight 75.296 kg Physical Exam Narrative: Patient clinically does not look fluid overloaded FiO2 60% PEEP 10 Still on vasopressors S1, S2 Bilateral assisted breath sounds Demarco catheter draining dilute urine Urinary Catheter Management: Demarco: Cath Placed During This Visit: yes Reason for Continuing Indwelling Catheter: Accurate Measurement of Urinary Output in Critically Ill Patients Urinary Catheter Date of Insertion: 01/30/22 Urinary Catheter Time of Insertion: 23:00 Data : 02/06/22 03:57 02/06/22 03:57 Micro: Microbiology 02/01/22 09:07 Blood Culture - Final Blood NO GROWTH AFTER 5 DAYS 02/01/22 09:13 Blood Culture - Preliminary Blood Staphylococcus epidermidis A&P Assessment and plan (1) ARDS (adult respiratory distress syndrome): (2) Hyperglycemia: (3) Pulmonary embolism: (4) Cardiomyopathy: (5) Acute respiratory failure with hypoxia: (6) Hypoxia: (7) COVID: (8) Cardiomyopathy: Qualifiers: Cardiomyopathy type: ischemic Qualified Code(s): I25.5 - Ischemic cardiomyopathy (9) Pacemaker: Plan COVID-19 ARDS FiO2 60% bilateral groundglass opacities with signs of CHF I have increased the dose of Lasix for positive fluid balance Added steroids We have discontinued her propofol She is still requiring low-dose Levophed Continue fentanyl Sedation vacation once Levophed has been turned off Family contacted They would not opt for tracheostomy, PEG tube placement or LTAC Acute on chronic kidney disease: Resolved with IV diuresis TPN I have asked nurse to decrease the dose of her TPN Hyperglycemia: Added insulin drip Isolated episode of febrile event cultures negative afebrile continue cefepime for now fungal antigens pending Diastolic congestive heart failure exacerbation: Increase the dose of IV diuresis pace maker unremarkable evaluation Full code DVT prophylaxis covered with therapeutic Lovenox Acute PE continue therapeutic Lovenox Attestations Medical Necessity Statement*: Continue ICU management Time Spent in Patient Care: 50 Coding Level of Care Code Acute Analyst Geochemical Prospecting for g Fwd Diagnoses ARDS (adult respiratory distress syndrome) J80 Hyperglycemia R73.9 Pulmonary embolism I26.99 Cardiomyopathy I42.9 Acute respiratory failure with hypoxia J96.01 Hypoxia R09.02 COVID U07.1 Cardiomyopathy I25.5 Cardiomyopathy type: ischemic Pacemaker Z95.0
[2022-02-06 14:01] LABS: Glucose Point of Care 230 mg/dL (70-110)
[2022-02-06 14:01] LABS: Glucose Point of Care 254 mg/dL (70-110)
[2022-02-06 14:35] LABS: Glucose Point of Care 260 mg/dL (70-110)
[2022-02-06 15:26] LABS: Glucose Point of Care 263 mg/dL (70-110)
[2022-02-06 16:24] LABS: Glucose Point of Care 212 mg/dL (70-110)
[2022-02-06 17:31] LABS: Glucose Point of Care 172 mg/dL (70-110)
[2022-02-06 18:18] LABS: Aspergillus AG,EIA,Serum NOT DETECTED; Aspergillus Galactomannan Inde <0.50; Fungitell 1-3-B Glucan Assay <31 pg/mL; Interpretation NEGATIVE
[2022-02-06 18:27] LABS: Glucose Point of Care 155 mg/dL (70-110)
--- NOTE | 2022-02-06 18:36 | PC.NURSE ---
SHIFT SUMMARY: PT HAS HAD AN UNEVENTFUL SHIFT. DR CADE IN TO ROUND WITH PT AND FAMILY THIS MORNING. A PLAN HAS BEEN ESTABLISHED; PLAN IS TO ATTEMPT SEDATION VACATION AND SEE IF PT RESPONDS. FAMILY REQUESTS TO GIVE PT UNTIL SATURDAY BEFORE THEY MAKE A DECISION. SEDATION VACATION ATTEMPTED BY THIS NURSE. PT IS OFF OF SEDATION. FENTANYL IS STILL RUNNING AT 25ML/HR. PT DOES NOT APPEAR TO BE IN ANY PAIN. PT IS NOT REALLY RESPONDING TO VERBAL OR PAINFUL STIMULI. ATTEMPTS TO TURN OFF LEVOPHED HAS BEEN ATTEMPTED BUT HAD TO BE RESTARTED DUE TO B/P AND MAP BEING TOO LOW. LEVO IS CURRENTLY RUNNING AT 2MCG/MIN. TPN HAS BEEN TURNED DOWN TO 30ML/HR PER DOCTORS ORDER. AN INSULIN DRIP WAS STARTED ON PT TODAY. TITRATIONS ARE BEING MADE PER PROTOCOL. VENT SETTINGS ARE CURRENTLY FIO2 AT 60%. VT OF 350. PEEP OF 10. RR AT 18. PT JUST RECENTLY TURNED TO LEFT SIDE WITH HELP OF FAMILY. PT HAS HAD MINIMAL URINE OUTPUT TODAY, 400ML. DOCTOR NOTIFIED OF THIS. NO NEW ORDERS. PT ALREADY GETTING IV LASIX. PT IS STILL UNRESPONSIVE BUT APPEARS TO BE COMFORTABLE IN BED. WILL CONTINUE TO MONITOR.
[2022-02-06 20:04] LABS: Glucose Point of Care 134 mg/dL (70-110); Glucose Point of Care 173 mg/dL (70-110)
[2022-02-06] MEDS: atorvastatin 40 mg Tablet PO (20:32)
[2022-02-06 21:11] LABS: Glucose Point of Care 124 mg/dL (70-110)
[2022-02-06 22:08] LABS: Glucose Point of Care 144 mg/dL (70-110)
[2022-02-07] VITALS (94 sets, daily range): BP systolic 82–155; BP diastolic 35–70; PULSE 53–75; RESP 2–26; TEMP 36.5–37; O2SAT 86–98
[2022-02-07 00:31] LABS: Glucose Point of Care 187 mg/dL (70-110)
[2022-02-07 00:31] LABS: Glucose Point of Care 146 mg/dL (70-110)
[2022-02-07 01:14] LABS: Glucose Point of Care 149 mg/dL (70-110)
--- NOTE | 2022-02-07 02:03 | PC.NURSE ---
Fentanyl Waste Wasted 160 mls of Fentanyl with SAMUEL Rebolledo.
[2022-02-07 02:28] LABS: Glucose Point of Care 137 mg/dL (70-110)
[2022-02-07 03:14] LABS: Glucose Point of Care 139 mg/dL (70-110)
[2022-02-07 03:50] LABS: Basophils % 0.4 %; Hematocrit 36.4 % (37.0-47.0); Hemoglobin 11.3 g/dL (11.5-15.3); Lymphocytes # 0.6 10^3/uL (0.8-4.8); Lymphocytes % 5.6 %; Mean Corpuscular Hemoglobin 27.4 pg (28.0-34.0); Mean Corpuscular Volume 88.1 fl (81-99); Mean Platelet Volume 10.6 fL (7.4-10.4); Monocytes # 0.3 10^3/uL (0.2-0.9); Monocytes % 2.4 %; Neutrophils # 10.08 10^3/uL (1.8-7.7); Neutrophils % 89.5 %; Nucleated Red Blood Cells % 0 %; Platelet Count 206 10^3/cmm (130-400); Red Blood Count 4.13 10^6/uL (4.1-5.3); Red Cell Distribution Width 14.3 % (12.1-15.1); White Blood Count 11.3 10^3/uL (4.0-10.0)
--- NOTE | 2022-02-07 04:00 | XR_ITS ---
WS: [id number] XR chest 1V portable [id number] REASON FOR EXAM: pna FINDINGS: There is decreased density of the diffuse lung opacities indicating some resolution compared to the p revious examination of 02/05/2022. This may indicate pulmonary edema as at least part of the diffuse l marie abnormality. The right arm PICC line, nasogastric tube, and endotracheal tube remain in proper position. Left cardiac device with left subclavian lead to the right atrium also unchanged. No new findings. XR/XR chest 1V portable [id number] IMPRESSION: Improvement in the diffuse lung disease.
[2022-02-07 04:13] LABS: Blood Urea Nitrogen 33 mg/dL (8-23); Calcium 7.7 mg/dL (8.5-10.5); Carbon Dioxide 30 mmol/L (22-29); Chloride 93 mmol/L (98-107); Glucose 144 mg/dL (65-115); Osmolality Calculated 282 mOsm/kg (285-295); Sodium 131 mmol/L (136-145)
[2022-02-07 04:17] LABS: Anion Gap 12.3 (5-19)
[2022-02-07 04:19] LABS: Potassium 4.3 mmol/L (3.5-5.1)
[2022-02-07 04:38] LABS: Glucose Point of Care 156 mg/dL (70-110)
[2022-02-07 04:55] LABS: ABG PCO2 51.9 mmHg (35-45); ABG PH Result 7.42 (7.35-7.45); Arterial Blood Gas Hematocrit 47.1 % (37-47); Base Excess ABG 7.1 mmol/L (-2.0-2.0); Blood Gas Allen Test Pos; Blood Gas Operator Identificat JB; Blood Gas Sample Site Radial, right; Blood Gas Sample Type Arterial; Blood Gas Tidal Volume 0.35; HCO3 ABG 33.4 mmol/L (22-26); Oxygen Device VENT; PO2 ABG 72.3 mmHg (80.0-100.0)
[2022-02-07 07:06] LABS: Glucose Point of Care 140 mg/dL (70-110)
[2022-02-07 07:21] LABS: Glucose Point of Care 168 mg/dL (70-110)
[2022-02-07] MEDS: ipratropium-albuterol 3 mL Neb INHALATION ×3 (07:47→19:46)
[2022-02-07] MEDS: budesonide 0.5 mg/2 mL Neb 0.25 MG INHALATION ×2 (07:47→19:46)
[2022-02-07] MEDS: cefepime 1,000 MG in sodium chloride 0.9% (plus) 50 ML 100 MG IV (08:27)
[2022-02-07] MEDS: sennosides-docusate Tablet 1 TAB PO (08:28)
[2022-02-07] MEDS: FUROsemide 10 mg/mL SDV 4mL 40 MG IVP (08:28)
[2022-02-07] MEDS: enoxaparin 80 mg/0.8 mL Syringe SUBCUT ×2 (08:28→20:22)
--- NOTE | 2022-02-07 10:33 | PC.CHAP ---
Pastoral Care Encounter/Spiritual Assessment Type of Contact [] Declined pen or pencil assembly machine operator visit [] Patient/Family/Request visit [] Outpatient visit [] Follow-up visit [] Physician referral [] Code/Alert [x] Routine visit [] Staff referral [] Actively dying [] Patient sleeping [] Family support [] [] Out of room [] Palliative care [] [] Receiving care in room [] Pre-surgical visit [] Trauma [] Long length of stay [x] ICU visit [x] Other: PT resting.. made head movement when spoken to.. could be just random movement Relational/Emotional Strength [] Patient feels connected with others/family/visitors/staff [] Distress [] Loneliness/isolation [] Abandonment Spirituality of Patient [] Person of Marley [] Attends Restorationist of their Marley [] Believes in Prayer [] Reads Bible or Episcopal materials [] There are Spiritual issues to be addressed Lithographic Stripper Interventions [x] Prayer [] Active listening [] Non-anxious presence [] Spiritual/emotional support [] Crisis/trauma care [] Spiritual counseling [] Bereavement support [] Provided bereavement packet [] Provided Bible/devotional materials [] Provided toy/stuffed animal, coloring book to patient or family member [] Provided Communion [] Anointing/[place] [] Salvation [x] Completed spiritual assessment [] Other: Impact on Illness or Injury [] Angry [] Fearful [] Anxious [] Often cries [] Exhaustion [] Unable to work [] Unable to attend gnosticism [] Unable to walk/stand [] Unable to read [] Unable to drive [] Unable to eat/drink [] Unable to sleep [] Unable to be with family [] Patient intubated [] Other: Summary Time spent with patient
[2022-02-07] MEDS: FUROsemide 10 mg/mL SDV 10mL 60 MG IVP (11:57)
[2022-02-07 11:58] LABS: Glucose Point of Care 163 mg/dL (70-110)
[2022-02-07 11:58] LABS: Glucose Point of Care 174 mg/dL (70-110)
[2022-02-07 11:58] LABS: Glucose Point of Care 158 mg/dL (70-110)
[2022-02-07 11:58] LABS: Glucose Point of Care 178 mg/dL (70-110)
[2022-02-07 12:08] LABS: Glucose Point of Care 169 mg/dL (70-110)
--- NOTE | 2022-02-07 12:16 | P.PN_ITS ---
Subjective Subjective: Patient is in negative balance today Risk for dose of Lasix FiO2 still 60% saturating 89 to 90% Clinically does not look fluid overloaded Afebrile Leukocytosis related to steroid use Cultures negative Blood sugar is better with insulin gtt Vitals/I&O/Wt Last Vital Signs Temp 97.7 F 02/07/22 09:45 Pulse 60 02/07/22 12:00 Resp 20 H 02/07/22 10:00 BP 117/50 02/07/22 12:00 Pulse Ox 88 L 02/07/22 12:00 O2 Del Method 02/07/22 07:49 O2 Flow Rate 15 01/30/22 10:45 FiO2 70 02/07/22 10:00 02/06/22 02/07/22 02/07/22 22:59 06:59 14:59 Intake Total 88.217 / 1771.789 257.187 / 2028.976 678.5 / 678.5 Output Total 400 / 400 1550 / 1950 Balance -311.783 / 1371.789 -1292.813 / 78.976 678.5 / 678.5 Weight last 48 hrs Weight 84.867 kg Physical Exam Narrative: Patient clinically does not look fluid overloaded Intubated and sedated Not paralyzed Supine Bilateral assisted breath sounds Patient was nodding her head to some extent when I entered the room Tries to open eyes FiO2 60% PEEP 10 Abdomen soft, bowel sounds are sluggish today Urinary Catheter Management: Demarco: Cath Placed During This Visit: yes Reason for Continuing Indwelling Catheter: Accurate Measurement of Urinary Output in Critically Ill Patients Urinary Catheter Date of Insertion: 01/30/22 Urinary Catheter Time of Insertion: 23:00 Data : 02/07/22 03:30 02/07/22 03:30 Micro: Microbiology 02/01/22 09:13 Blood Culture - Final Blood Staphylococcus epidermidis 02/01/22 09:07 Blood Culture - Final Blood NO GROWTH AFTER 5 DAYS A&P Assessment and plan (1) ARDS (adult respiratory distress syndrome): (2) Hyperglycemia: (3) Pulmonary embolism: (4) Cardiomyopathy: (5) Acute respiratory failure with hypoxia: (6) Hypoxia: (7) COVID: (8) Atrial fibrillation: (9) Cardiomyopathy: Qualifiers: Cardiomyopathy type: ischemic Qualified Code(s): I25.5 - Ischemic cardiomyopathy (10) Pacemaker: Plan Intubated and sedated Bilateral pulm infiltrates likely improving likely related to CHF exacerbation Increase the dose of Lasix Given extra dose today Negative fluid balance Afebrile Cultures negative FiO2 60% PEEP 10 Off Levophed Once FiO2 is around 50 to 55% we will do sedation vacation weaning trial Family conducted I showed x-ray to Mild Improvement Noted Acute on chronic kidney disease: Resolved Electrolyte imbalance: Resolved Hypervolemic hyponatremia: Improved Aspergillus, galactomannan test pending Diastolic congestive heart failure exacerbation continue diuresis Family opting for to avoid trach LTAC and PEG placement Full code Currently on therapeutic Lovenox for acute PE TPN running at 30 mill per hour Hyperglycemia improved with insulin drip Case discussed with the ICU nurse Attestations Medical Necessity Statement*: Continue ICU management Time Spent in Patient Care: 40 Coding Level of Care Code Acute Finisher Denture for [facility] Fwd Diagnoses ARDS (adult respiratory distress syndrome) J80 Hyperglycemia R73.9 Pulmonary embolism I26.99 Cardiomyopathy I42.9 Acute respiratory failure with hypoxia J96.01 Hypoxia R09.02 COVID U07.1 Atrial fibrillation I48.91 Cardiomyopathy I25.5 Cardiomyopathy type: ischemic Pacemaker Z95.0
[2022-02-07 13:19] LABS: Glucose Point of Care 143 mg/dL (70-110)
[2022-02-07 14:16] LABS: Glucose Point of Care 143 mg/dL (70-110)
[2022-02-07 16:54] LABS: Anion Gap 13.5 (5-19); Blood Urea Nitrogen 37 mg/dL (8-23); Calcium 7.8 mg/dL (8.5-10.5); Carbon Dioxide 30 mmol/L (22-29); Chloride 93 mmol/L (98-107); Glucose 172 mg/dL (65-115); Osmolality Calculated 289 mOsm/kg (285-295); Potassium 3.5 mmol/L (3.5-5.1); Sodium 133 mmol/L (136-145)
[2022-02-07 17:01] LABS: Glucose Point of Care 169 mg/dL (70-110)
[2022-02-07 17:01] LABS: Glucose Point of Care 174 mg/dL (70-110)
[2022-02-07 17:01] LABS: Glucose Point of Care 172 mg/dL (70-110)
[2022-02-07 18:00] LABS: Glucose Point of Care 164 mg/dL (70-110)
[2022-02-07] MEDS: atorvastatin 40 mg Tablet PO (20:22)
[2022-02-07 21:13] LABS: Glucose Point of Care 147 mg/dL (70-110)
[2022-02-07 21:13] LABS: Glucose Point of Care 160 mg/dL (70-110)
[2022-02-07 21:13] LABS: Glucose Point of Care 153 mg/dL (70-110)
[2022-02-07] MEDS: FUROsemide 10 mg/mL SDV 10mL 80 MG IVP (22:23)
[2022-02-07 22:33] LABS: Glucose Point of Care 147 mg/dL (70-110)
[2022-02-07 23:22] LABS: Glucose Point of Care 152 mg/dL (70-110)
[2022-02-08] VITALS (71 sets, daily range): BP systolic 84–160; BP diastolic 36–71; PULSE 55–79; RESP 20–23; TEMP 36.7–37.3; O2SAT 91–97
[2022-02-08] MEDS: insulin regular-human 250 UNIT in sodium chloride 0.9% 250 ML IV (00:14)
[2022-02-08 00:22] LABS: Glucose Point of Care 147 mg/dL (70-110)
[2022-02-08 01:21] LABS: Glucose Point of Care 159 mg/dL (70-110)
[2022-02-08 02:13] LABS: Glucose Point of Care 148 mg/dL (70-110)
[2022-02-08 03:21] LABS: Glucose Point of Care 149 mg/dL (70-110)
[2022-02-08 03:54] LABS: Basophils % 0.2 %; Eosinophils % 0.1 %; Hematocrit 36.2 % (37.0-47.0); Hemoglobin 11.4 g/dL (11.5-15.3); Lymphocytes # 0.4 10^3/uL (0.8-4.8); Lymphocytes % 4.9 %; Mean Corpuscular HGB Conc 31.5 g/dL (30.0-36.0); Mean Corpuscular Volume 88.9 fl (81-99); Monocytes # 0.3 10^3/uL (0.2-0.9); Monocytes % 3.7 %; Neutrophils # 8.07 10^3/uL (1.8-7.7); Neutrophils % 89.3 %; Nucleated Red Blood Cells % 0 %; Platelet Count 221 10^3/cmm (130-400); Red Blood Count 4.07 10^6/uL (4.1-5.3); Red Cell Distribution Width 14.3 % (12.1-15.1)
--- NOTE | 2022-02-08 04:00 | XR_ITS ---
WS: [id number] XR chest 1V portable [id number] REASON FOR EXAM: CHF FINDINGS: Endotracheal tube, right arm PICC line, and nasogastric tube remain in proper position. Left Cardiac device and leads unchanged properly positioned. Diffuse reticular interstitial and patchy airspace lung opacities bilaterally, have not changed signi ficantly compared to 02/07/2022. No new findings are identified. XR/XR chest 1V portable [id number] IMPRESSION: Stable abnormal chest
[2022-02-08 04:14] LABS: Glucose Point of Care 145 mg/dL (70-110)
[2022-02-08 04:21] LABS: Anion Gap 11.5 (5-19); Blood Urea Nitrogen 40 mg/dL (8-23); Calcium 7.8 mg/dL (8.5-10.5); Carbon Dioxide 33 mmol/L (22-29); Chloride 95 mmol/L (98-107); Glucose 162 mg/dL (65-115); Osmolality Calculated 295 mOsm/kg (285-295); Potassium 3.5 mmol/L (3.5-5.1); Sodium 136 mmol/L (136-145)
--- NOTE | 2022-02-08 04:21 | PC.NURSE ---
Patient rested well through the night. Levophed was ran at 2mcg/min for part of the night as Map ran below 60 despite repositioning. Fentanyl was titrated up to 50mcg/hr due to over breathing the vent and grimacing facial expressions. Around 0400 patient began to open eyes to voice and turn head to follow voice. Nurse was unable to get hand squeezes however, patient would move feet and legs slightly to touch. Levophed was stopped as Map consistently held in the 70s. Insulin drip has been titrated through the night per protocol. Sacral dressing changed during patient bath and stage 2 ulcer observed. 4x4 optifoam dressing replaced.
[2022-02-08 05:24] LABS: Glucose Point of Care 153 mg/dL (70-110)
[2022-02-08 05:39] LABS: ABG PCO2 52.9 mmHg (35-45); ABG PH Result 7.45 (7.35-7.45); Base Excess ABG 10.2 mmol/L (-2.0-2.0); Blood Gas Allen Test Pos; Blood Gas Sample Site Radial, right; Blood Gas Sample Type Arterial; HCO3 ABG 36.7 mmol/L (22-26); PO2 ABG 66.4 mmHg (80.0-100.0)
[2022-02-08 05:40] LABS: Blood Gas Tidal Volume 0.35; Oxygen Device VENT
[2022-02-08 06:07] LABS: Glucose Point of Care 146 mg/dL (70-110)
[2022-02-08] MEDS: ipratropium-albuterol 3 mL Neb INHALATION ×2 (07:41→19:56)
[2022-02-08] MEDS: budesonide 0.5 mg/2 mL Neb 0.25 MG INHALATION ×2 (07:41→19:56)
[2022-02-08] MEDS: cefepime 1,000 MG in sodium chloride 0.9% (plus) 50 ML 100 MG IV (07:54)
[2022-02-08] MEDS: enoxaparin 80 mg/0.8 mL Syringe SUBCUT ×2 (07:54→20:30)
[2022-02-08] MEDS: sennosides-docusate Tablet 1 TAB PO (07:55)
[2022-02-08 08:10] LABS: Glucose Point of Care 129 mg/dL (70-110)
[2022-02-08 09:12] LABS: Glucose Point of Care 139 mg/dL (70-110)
--- NOTE | 2022-02-08 09:44 | P.PN_ITS ---
Subjective Subjective: She has been doing well off Levophed, minimal sedation with fentanyl FiO2 50% Sedation vacation, try to wake her up to see if she would follow commands and then do weaning trial ICU nurse and RT has been updated Family was at the bedside at the time of my evaluation Adequate diuresis Chest x-ray shows groundglass opacities along lung bases otherwise no significant changes Afebrile Blood sugar well controlled Vitals/I&O/Wt Last Vital Signs Temp 98.1 F 02/08/22 04:00 Pulse 60 02/08/22 09:15 Resp 20 H 02/08/22 07:47 BP 114/44 02/08/22 09:15 Pulse Ox 93 02/08/22 09:15 O2 Del Method 02/08/22 07:47 O2 Flow Rate 15 01/30/22 10:45 FiO2 50 02/08/22 07:47 02/07/22 02/08/22 02/08/22 22:59 06:59 14:59 Intake Total 122.666 / 883.686 149.368 / 1033.054 50 / 50 Output Total 1350 / 1350 1000 / 2350 Balance -1227.334 / -466.314 -850.632 / -1316.946 50 / 50 Weight last 48 hrs Weight 80.343 kg Physical Exam Narrative: Currently FiO2 50% PEEP 10 Clinically does not look fluid overloaded Lower extremity edema has improved Abdomen with sluggish bowel sounds Bilateral chest breath sounds no active wheezing Intubated and sedated Not able to follow commands Demarco cath draining dilute urine Urinary Catheter Management: Demarco: Cath Placed During This Visit: yes Reason for Continuing Indwelling Catheter: Accurate Measurement of Urinary Output in Critically Ill Patients Urinary Catheter Date of Insertion: 01/30/22 Urinary Catheter Time of Insertion: 23:00 Data : 02/08/22 03:40 02/08/22 03:40 A&P Assessment and plan (1) Hyperglycemia: (2) Pulmonary embolism: (3) Cardiomyopathy: (4) Acute respiratory failure with hypoxia: (5) Hypoxia: (6) COVID: (7) Atrial fibrillation: (8) Cardiomyopathy: Qualifiers: Cardiomyopathy type: ischemic Qualified Code(s): I25.5 - Ischemic cardiomyopathy (9) Pacemaker: Plan ARDS: Ruled out Considering the fact her bilateral groundglass opacities improved with significa nt diuresis this was likely diastolic congestive heart failure exacerbation fluid overload which improved Covid 19 related to persistent hypoxia FiO2 50% PEEP 10 Weaning trial today plan to extubate her Family does not want LTAC trach or PEG if it is difficult extubation Diastolic congestive heart failure exacerbation: Clinically she looks euvolemic negative fluid balance today Continue diuresis Afebrile she has been kept on empirical antibiotic coverage Acute PE continue therapeutic Lovenox No need to repeat labs for tomorrow Full code TPN running at 30 mL/h Insulin drip Sugar has been well controlled Attestations Medical Necessity Statement*: Continue ICU management Critical Care Time: 40 Coding Level of Care Code 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
[2022-02-08 10:22] LABS: Glucose Point of Care 159 mg/dL (70-110)
--- NOTE | 2022-02-08 10:28 | PC.CHAP ---
Pastoral Care Encounter/Spiritual Assessment Type of Contact [] Declined linen attendant visit [] Patient/Family/Request visit [] Outpatient visit [] Follow-up visit [] Physician referral [] Code/Alert [x] Routine visit [] Staff referral [] Actively dying [x] Patient sleeping [] Family support [] [] Out of room [] Palliative care [] [] Receiving care in room [] Pre-surgical visit [] Trauma [] Long length of stay [x] ICU visit [] Other: Relational/Emotional Strength [] Patient feels connected with others/family/visitors/staff [] Distress [] Loneliness/isolation [] Abandonment Spirituality of Patient [] Person of Marley [] Attends Anabaptism of their Marley [] Believes in Prayer [] Reads Bible or Confucianist materials [] There are Spiritual issues to be addressed Aligner Barrel And Receiver Interventions [x] Prayer [] Active listening [] Non-anxious presence [] Spiritual/emotional support [] Crisis/trauma care [] Spiritual counseling [] Bereavement support [] Provided bereavement packet [] Provided Bible/devotional materials [] Provided toy/stuffed animal, coloring book to patient or family member [] Provided Communion [] Anointing/[place] [] Salvation [x] Completed spiritual assessment [] Other: Impact on Illness or Injury [] Angry [] Fearful [] Anxious [] Often cries [] Exhaustion [] Unable to work [] Unable to attend orthodoxy [] Unable to walk/stand [] Unable to read [] Unable to drive [] Unable to eat/drink [] Unable to sleep [] Unable to be with family [] Patient intubated [] Other: Summary Time spent with patient
[2022-02-08] MEDS: FUROsemide 10 mg/mL SDV 10mL 80 MG IVP ×2 (11:21→22:05)
[2022-02-08 11:26] LABS: Glucose Point of Care 173 mg/dL (70-110)
[2022-02-08 12:26] LABS: Glucose Point of Care 169 mg/dL (70-110)
[2022-02-08 14:05] LABS: Glucose Point of Care 179 mg/dL (70-110)
[2022-02-08 16:31] LABS: Glucose Point of Care 181 mg/dL (70-110)
[2022-02-08 16:31] LABS: Glucose Point of Care 179 mg/dL (70-110)
[2022-02-08 17:15] LABS: Glucose Point of Care 190 mg/dL (70-110)
--- NOTE | 2022-02-08 17:27 | PC.NURSE ---
All sedation has been shut off this shift. Patient is still unable to follow any commands but does withdraw from pain.
[2022-02-08 18:36] LABS: Glucose Point of Care 155 mg/dL (70-110)
[2022-02-08 19:41] LABS: Glucose Point of Care 137 mg/dL (70-110)
[2022-02-08 20:22] LABS: Glucose Point of Care 143 mg/dL (70-110)
[2022-02-08] MEDS: atorvastatin 40 mg Tablet PO (20:30)
[2022-02-08 21:15] LABS: Glucose Point of Care 145 mg/dL (70-110)
[2022-02-08 22:18] LABS: Glucose Point of Care 157 mg/dL (70-110)
[2022-02-08 23:10] LABS: Glucose Point of Care 158 mg/dL (70-110)
[2022-02-09] VITALS (54 sets, daily range): BP systolic 101–167; BP diastolic 39–63; PULSE 59–68; RESP 19–33; TEMP 37–37.7; O2SAT 87–99
[2022-02-09 00:26] LABS: Glucose Point of Care 159 mg/dL (70-110)
[2022-02-09 01:10] LABS: Glucose Point of Care 162 mg/dL (70-110)
[2022-02-09 02:12] LABS: Glucose Point of Care 150 mg/dL (70-110)
[2022-02-09 03:14] LABS: Glucose Point of Care 160 mg/dL (70-110)
[2022-02-09 04:29] LABS: Glucose Point of Care 144 mg/dL (70-110)
[2022-02-09 04:55] LABS: Alanine Aminotransferase 16 U/L (0-33); Albumin Level 2.1 g/dL (3.5-5.2); Alkaline Phosphatase 150 U/L (35-105); Anion Gap 13.7 (5-19); Aspartate Amino Transferase 31 U/L (0-32); Blood Urea Nitrogen 44 mg/dL (8-23); Calcium 7.9 mg/dL (8.5-10.5); Carbon Dioxide 37 mmol/L (22-29); Chloride 95 mmol/L (98-107); Globulin 3.4 g/dL (1.3-4.6); Glucose 166 mg/dL (65-115); Osmolality Calculated 309 mOsm/kg (285-295); Potassium 3.7 mmol/L (3.5-5.1); Sodium 142 mmol/L (136-145); Total Bilirubin 0.5 mg/dL (0.15-1.2); Total Protein 5.5 g/dL (6.6-8.7)
[2022-02-09 05:28] LABS: Glucose Point of Care 164 mg/dL (70-110)
[2022-02-09 05:46] LABS: ABG PCO2 50.7 mmHg (35-45); ABG PH Result 7.51 (7.35-7.45); Base Excess ABG 14.9 mmol/L (-2.0-2.0); Blood Gas Allen Test Pos; Blood Gas Operator Identificat JB; Blood Gas Sample Site Radial, right; Blood Gas Sample Type Arterial; Blood Gas Tidal Volume 0.35; HCO3 ABG 40.6 mmol/L (22-26); Oxygen Device VENT; PO2 ABG 69.6 mmHg (80.0-100.0)
[2022-02-09 05:58] LABS: Blood Gas Operator Identificat JB
[2022-02-09 06:28] LABS: Glucose Point of Care 152 mg/dL (70-110)
[2022-02-09] MEDS: budesonide 0.5 mg/2 mL Neb 0.25 MG INHALATION ×2 (07:37→20:06)
[2022-02-09] MEDS: ipratropium-albuterol 3 mL Neb INHALATION ×2 (07:38→20:06)
--- NOTE | 2022-02-09 07:52 | XRR_ITS ---
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 Intubated. TECHNIQUE: Imaging protocol: Radiologic exam of the chest. Views: 1 view. COMPARISON: CR XR chest 1V portable [id number] 02/08/2022 4:10 AM FINDINGS: Tubes, catheters and devices: Unremarkable endotracheal tube position. PICC line in the distal SVC. Enteric tube in the proximal stomach. Left chest ICD is present. Lungs: Relatively diffuse hazy pulmonary parenchymal opacities and interstitial thickening changes. Pleural spaces: Unremarkable. No pleural effusion. No pneumothorax. Heart/Mediastinum: Mild cardiac enlargement. Bones/joints: Unremarkable. XR/XR chest 1V portable [id number] IMPRESSION: No significant changes in the widespread interstitial and alveolar airspace disease.
[2022-02-09 07:58] LABS: Glucose Point of Care 132 mg/dL (70-110)
[2022-02-09] MEDS: FUROsemide 10 mg/mL SDV 10mL 80 MG IVP (09:32)
[2022-02-09] MEDS: enoxaparin 80 mg/0.8 mL Syringe SUBCUT ×2 (09:32→19:08)
[2022-02-09] MEDS: sennosides-docusate Tablet 1 TAB PO (09:32)
[2022-02-09] MEDS: lidocaine 1% 5 ML in potassium chloride premix 100 ML 25 ML IV (09:33)
[2022-02-09] MEDS: cefepime 1,000 MG in sodium chloride 0.9% (plus) 50 ML 100 MG IV (09:33)
--- NOTE | 2022-02-09 10:22 | PC.CHAP ---
Pastoral Care Encounter/Spiritual Assessment Type of Contact [] Declined outside repairer special visit [] Patient/Family/Request visit [] Outpatient visit [] Follow-up visit [] Physician referral [] Code/Alert [x] Routine visit [] Staff referral [] Actively dying [x] Patient sleeping [] Family support [] [] Out of room [] Palliative care [] [] Receiving care in room [] Pre-surgical visit [] Trauma [] Long length of stay [x] ICU visit [x] Other: PT still on Vent... Relational/Emotional Strength [] Patient feels connected with others/family/visitors/staff [] Distress [] Loneliness/isolation [] Abandonment Spirituality of Patient [] Person of Marley [] Attends Caodaism of their Marley [] Believes in Prayer [] Reads Bible or Alevism materials [] There are Spiritual issues to be addressed Clinical Assistant Professor Interventions [x] Prayer [] Active listening [] Non-anxious presence [] Spiritual/emotional support [] Crisis/trauma care [] Spiritual counseling [] Bereavement support [] Provided bereavement packet [] Provided Bible/devotional materials [] Provided toy/stuffed animal, coloring book to patient or family member [] Provided Communion [] Anointing/[place] [] Salvation [x] Completed spiritual assessment [] Other: Impact on Illness or Injury [] Angry [] Fearful [] Anxious [] Often cries [] Exhaustion [] Unable to work [] Unable to attend jain [] Unable to walk/stand [] Unable to read [] Unable to drive [] Unable to eat/drink [] Unable to sleep [] Unable to be with family [] Patient intubated [] Other: Summary Time spent with patient
[2022-02-09 11:03] LABS: Glucose Point of Care 181 mg/dL (70-110)
--- NOTE | 2022-02-09 11:22 | CT_ITS ---
WS: [id number] CT HEAD TECHNIQUE: Noncontrast CT of the head obtained from the skullbase to the vertex. CLINICAL INFORMATION: intubated COMPARISON: None. DLP: 1159.[address] scans at [facility] use at least one of these dose optimization techniques: automated e xposure control; mA and/or kV adjustment per patient size (includes targeted exams where dose is matc hed to clinical indication); or iterative reconstruction. FINDINGS: No evidence of intracranial hemorrhage or mass effect. Ventricular system and basal cisterns are piña nt. Mild small vessel changes with moderate parenchymal volume loss. No extra-axial fluid collections . No evidence of mass or mass effect. Small chronic lacunar infarct RIGHT thalamus. Fluid within the paranasal sinuses compatible with sinusitis. Air-fluid levels in the maxillary sinus es, sphenoid sinus, ethmoid air cells. Opacification the mastoid air cells bilaterally. CT/CT head wo con* [id number] IMPRESSION: 1. No evidence of intracranial hemorrhage or mass effect. 2. Mild small vessel changes. Moderate parenchymal volume loss 3. Paranasal sinusitis with air-fluid levels. Fluid in the mastoid air cells b ilaterally. 4. No acute intracranial findings.
--- NOTE | 2022-02-09 11:25 | P.PN_ITS ---
Subjective Subjective: Patient has been off sedation since yesterday She is moving her head right to left however not able to follow commands yet He is on minimal vent settings FiO2 50% Blood pressure has been stable O2 saturation 89 to 90% A. fib Chest x-ray showing no acute worsening Antibiotics discontinued Albuterol single dose of Ritalin today -2 L balance, cut back on diuretics Vitals/I&O/Wt Last Vital Signs Temp 99.1 F 02/09/22 07:30 Pulse 60 02/09/22 08:00 Resp 20 H 02/09/22 07:40 BP 123/48 02/09/22 08:00 Pulse Ox 89 L 02/09/22 08:00 O2 Del Method 02/09/22 07:39 O2 Flow Rate 15 01/30/22 10:45 FiO2 50 02/09/22 07:40 02/08/22 02/09/22 02/09/22 22:59 06:59 14:59 Intake Total 27.682 / 893.067 23.330 / 916.397 Output Total 1250 / 1250 1600 / 2850 Balance -1222.318 / -356.933 -1576.670 / -1933.603 Weight last 48 hrs Weight 80.343 kg Physical Exam Narrative: Patient is intubated She is off sedation She is not able to follow commands She eyes however does not make eye contact She was noted to squeeze my hand Clinically does not look euvolemic Skin wrinkling is prominent Abdomen soft sluggish bowel sounds Bilateral breath sounds without crackles or rhonchi Urinary Catheter Management: Demarco: Cath Placed During This Visit: yes Reason for Continuing Indwelling Catheter: Accurate Measurement of Urinary Output in Critically Ill Patients Urinary Catheter Date of Insertion: 01/30/22 Urinary Catheter Time of Insertion: 23:00 Data : 02/08/22 03:40 02/09/22 03:34 A&P Assessment and plan (1) Hyperglycemia: (2) Pulmonary embolism: (3) Cardiomyopathy: (4) Hypoxia: (5) COVID: (6) Atrial fibrillation: (7) Cardiomyopathy: Qualifiers: Cardiomyopathy type: ischemic Qualified Code(s): I25.5 - Ischemic cardiomyopathy (8) Pacemaker: Plan Respiratory failure requiring mechanical ventilation related to COVID-19 worsening hypoxia Patient is intubated Off sedation Weaning trial once she is able to follow commands Sedation was turned off yesterday Will do CT head without contrast We will give her a dose of Ritalin As soon as she is able to follow commands we will do weaning trial and extubation Total care discussed with the family she is DNR/DNI now onwards I will discontinue her antibiotics Acute diastolic CHF exacerbation cut back on diuresis She is in negative balance X-ray showing groundglass opacities related to COVID-19 Pulm edema has improved ARDS ruled out . Acute PE currently on therapeutic Lovenox A. fib without RVR Leg swelling has improved DNR/DNI TPN at 30 mill per hour Euglycemic Titrate off insulin drip Family does not want LTAC placement, trach or PEG tube placement Family present in the room this morning, patient was examined twice I will examine her again in the afternoon Attestations Medical Necessity Statement*: Continue ICU management Critical Care Time: 35 Coding Level of Care Code Acute Advisory Services Associate for [facility] Fwd Diagnoses Hyperglycemia R73.9 Pulmonary embolism I26.99 Cardiomyopathy I42.9 Hypoxia R09.02 COVID U07.1 Atrial fibrillation I48.91 Cardiomyopathy I25.5 Cardiomyopathy type: ischemic Pacemaker Z95.0
[2022-02-09 12:01] LABS: Glucose Point of Care 185 mg/dL (70-110)
[2022-02-09] MEDS: methylphenidate 10 mg Tablet 5 MG NG-TUBE (12:54)
[2022-02-09 13:14] LABS: Glucose Point of Care 160 mg/dL (70-110)
[2022-02-09 14:49] LABS: Glucose Point of Care 157 mg/dL (70-110)
[2022-02-09] MEDS: naloxone 0.4 mg/ml SDV IVP (15:45)
[2022-02-09 16:25] LABS: Glucose Point of Care 152 mg/dL (70-110)
--- NOTE | 2022-02-09 16:48 | PC.SOCIAL ---
IMM Update Pg 2 of IMM not updated patient is still intubated @ this time and do not anticipate DC in the next 24-48 hours.
[2022-02-09 17:08] LABS: Glucose Point of Care 150 mg/dL (70-110)
[2022-02-09 18:07] LABS: Glucose Point of Care 126 mg/dL (70-110)
--- NOTE | 2022-02-09 18:42 | PC.NURSE ---
CT done today. Family has been informed of results. Patient is still unable to follow any commands.
[2022-02-09 19:20] LABS: Glucose Point of Care 124 mg/dL (70-110)
[2022-02-09 20:32] LABS: Glucose Point of Care 146 mg/dL (70-110)
[2022-02-09 21:32] LABS: Glucose Point of Care 137 mg/dL (70-110)
[2022-02-09] MEDS: atorvastatin 40 mg Tablet PO (21:43)
[2022-02-09] MEDS: FUROsemide 10 mg/mL SDV 4mL 40 MG IVP (21:43)
[2022-02-09 22:18] LABS: Glucose Point of Care 162 mg/dL (70-110)
[2022-02-09 23:15] LABS: Glucose Point of Care 184 mg/dL (70-110)
[2022-02-10] VITALS (60 sets, daily range): BP systolic 86–172; BP diastolic 45–90; PULSE 53–65; RESP 18–32; TEMP 36.9–37.4; O2SAT 88–97; BMI 35.0
[2022-02-10 00:14] LABS: Glucose Point of Care 181 mg/dL (70-110)
[2022-02-10 01:07] LABS: Glucose Point of Care 171 mg/dL (70-110)
[2022-02-10 02:37] LABS: Glucose Point of Care 157 mg/dL (70-110)
[2022-02-10 03:12] LABS: Glucose Point of Care 167 mg/dL (70-110)
[2022-02-10 04:16] LABS: ABG PCO2 46.9 mmHg (35-45); ABG PH Result 7.56 (7.35-7.45); Arterial Blood Gas Hematocrit 41.2 % (37-47); Base Excess ABG 17.2 mmol/L (-2.0-2.0); Blood Gas Allen Test Pos; Blood Gas Operator Identificat JB; Blood Gas Sample Site Radial, right; Blood Gas Sample Type Arterial; Blood Gas Tidal Volume 0.35; Carboxyhemoglobin 1.2 %THgb (0.4-20.1); HCO3 ABG 41.7 mmol/L (22-26); HGB O2 Sat 91.3 % (95-100); Ionized Calcium Level - ABG 1.1 mmol/L (1.1-1.4); Methemoglobin 0.5 % (0.4-1.5); Oxygen Device VENT; Oxygen Saturation ABG 92.9; PO2 ABG 58.1 mmHg (80.0-100.0); Potassium Level - ABG 3.4 mmol/L (3.5-5.0); Total Hemoglobin 13.4 g/dL (12-16)
[2022-02-10 05:27] LABS: Anion Gap 11.8 (5-19); Blood Urea Nitrogen 43 mg/dL (8-23); Calcium 8.2 mg/dL (8.5-10.5); Carbon Dioxide 38 mmol/L (22-29); Chloride 96 mmol/L (98-107); Glucose 147 mg/dL (65-115); Osmolality Calculated 308 mOsm/kg (285-295); Potassium 3.8 mmol/L (3.5-5.1); Sodium 142 mmol/L (136-145)
[2022-02-10] MEDS: insulin regular-human 250 UNIT in sodium chloride 0.9% 250 ML IV (07:02)
[2022-02-10] MEDS: ketorolac 30 mg/mL INJ 15 MG IVP (07:08)
--- NOTE | 2022-02-10 07:12 | PC.NURSE ---
Toradol Throughout the night, Patient was periodically breathing in the 30s with an elevated blood pressure while moving head side to side in a way that suggested discomfort. Patient did not follow commands but withdrew from pain. Dr. Coppola notified at 0120 via voalte. Order for toradol received this am. See MAR for details.
[2022-02-10] MEDS: ipratropium-albuterol 3 mL Neb INHALATION ×3 (07:56→20:14)
[2022-02-10] MEDS: budesonide 0.5 mg/2 mL Neb 0.25 MG INHALATION ×2 (07:56→20:14)
[2022-02-10] MEDS: sennosides-docusate Tablet 1 TAB PO (08:23)
[2022-02-10] MEDS: enoxaparin 80 mg/0.8 mL Syringe SUBCUT ×2 (08:23→19:50)
[2022-02-10] MEDS: FUROsemide 10 mg/mL SDV 4mL 40 MG IVP ×2 (10:13→21:32)
--- NOTE | 2022-02-10 11:38 | P.PN_ITS ---
Subjective Subjective: Patient was examined twice, she is nodding her head shrugging her shoulders trying to move her right leg CT head unremarkable Family meeting conducted twice as well FiO2 50% MAP above 65 Currently on TPN and insulin drip Off sedation for last 72 hours Weaning trial once she is able to follow commands, currently on SIMV with good minute ventilation 10-11 breathing above the vent Pupils are reactive Negative fluid balance Vitals/I&O/Wt Last Vital Signs Temp 99.1 F 02/10/22 11:00 Pulse 60 02/10/22 11:00 Resp 26 H 02/10/22 11:08 BP 86/52 02/10/22 11:00 Pulse Ox 93 02/10/22 11:08 O2 Del Method 02/10/22 11:00 O2 Flow Rate 15 01/30/22 10:45 FiO2 55 02/10/22 11:08 02/09/22 02/10/22 02/10/22 22:59 06:59 14:59 Intake Total 180.817 / 944.033 20.150 / 964.183 50.837 / 50.837 Output Total 1250 / 1250 1175 / 2425 Balance -1069.183 / -305.967 -1154.850 / -1460.817 50.837 / 50.837 Weight last 48 hrs Weight 81.374 kg Physical Exam Narrative: Clinically looks euvolemic Nodding her head Shrugging her shoulders Moving right leg However not able to follow commands She is keeping her eyes closed Sluggish bowel sounds Bilateral assisted breath sounds Neuro exam is limited FiO2 50% Currently on TPN and insulin drip Demarco cath draining dilute urine Edema of legs improving Urinary Catheter Management: Demarco: Cath Placed During This Visit: yes Reason for Continuing Indwelling Catheter: Accurate Measurement of Urinary Output in Critically Ill Patients Urinary Catheter Date of Insertion: 01/30/22 Urinary Catheter Time of Insertion: 23:00 Data : 02/08/22 03:40 02/10/22 03:15 A&P Assessment and plan (1) Cardiomyopathy: (2) Hyperglycemia: (3) Pulmonary embolism: (4) Hypoxia: (5) COVID: (6) Atrial fibrillation: (7) Cardiomyopathy: Qualifiers: Cardiomyopathy type: ischemic Qualified Code(s): I25.5 - Ischemic cardiomyopathy (8) Pacemaker: Plan COVID-19 related persistent hypoxia Mechanically ventilated Off sedation She will need some time to wake up, no active signs of stroke CT head unremarkable She is off sedation for last 72 hours Able to show some activity by showing head-nodding, shrugging of shoulder and leg movements, not able to follow commands Currently on SIMV with good minute ventilation, breathing above the vent As soon as she starts following commands we will do weaning trial and then extubate We are hopeful we will be able to do so either today versus tomorrow Euglycemic Blood pressure is stable FiO2 50% Afebrile Discontinued antibiotics Continue diuretics and steroids DNR/DNI TPN at 30 mill per hour Currently on insulin drip Attestations Medical Necessity Statement*: Weaning trial once she is able to follow commands Time Spent in Patient Care: 40 Critical Care Time: 40 Coding Level of Care Code 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
[2022-02-10] MEDS: methylphenidate 10 mg Tablet 5 MG PO (13:32)
[2022-02-10] MEDS: naloxone 0.4 mg/ml SDV IVP (13:36)
[2022-02-10 19:10] LABS: Glucose Point of Care 159 mg/dL (70-110)
[2022-02-10 19:10] LABS: Glucose Point of Care 131 mg/dL (70-110)
[2022-02-10 19:10] LABS: Glucose Point of Care 138 mg/dL (70-110)
[2022-02-10 19:10] LABS: Glucose Point of Care 150 mg/dL (70-110)
[2022-02-10 19:10] LABS: Glucose Point of Care 145 mg/dL (70-110)
[2022-02-10 19:10] LABS: Glucose Point of Care 144 mg/dL (70-110)
[2022-02-10 19:10] LABS: Glucose Point of Care 134 mg/dL (70-110)
[2022-02-10 19:10] LABS: Glucose Point of Care 136 mg/dL (70-110)
[2022-02-10 19:10] LABS: Glucose Point of Care 167 mg/dL (70-110)
[2022-02-10 19:10] LABS: Glucose Point of Care 200 mg/dL (70-110)
[2022-02-10 19:10] LABS: Glucose Point of Care 155 mg/dL (70-110)
[2022-02-10 19:10] LABS: Glucose Point of Care 141 mg/dL (70-110)
[2022-02-10 19:10] LABS: Glucose Point of Care 154 mg/dL (70-110)
[2022-02-10] MEDS: atorvastatin 40 mg Tablet PO (20:28)
[2022-02-11] VITALS (61 sets, daily range): BP systolic 85–187; BP diastolic 37–103; PULSE 59–67; RESP 18–33; TEMP 36.6–38.4; O2SAT 86–93; BMI 35.0
[2022-02-11 02:04] LABS: Glucose Point of Care 136 mg/dL (70-110)
[2022-02-11 02:04] LABS: Glucose Point of Care 124 mg/dL (70-110)
[2022-02-11 02:04] LABS: Glucose Point of Care 192 mg/dL (70-110)
[2022-02-11 02:04] LABS: Glucose Point of Care 140 mg/dL (70-110)
[2022-02-11 02:04] LABS: Glucose Point of Care 150 mg/dL (70-110)
[2022-02-11 02:04] LABS: Glucose Point of Care 279 mg/dL (70-110)
[2022-02-11 02:04] LABS: Glucose Point of Care 171 mg/dL (70-110)
[2022-02-11 02:04] LABS: Glucose Point of Care 180 mg/dL (70-110)
[2022-02-11 02:04] LABS: Glucose Point of Care 117 mg/dL (70-110)
[2022-02-11] MEDS: ipratropium-albuterol 3 mL Neb INHALATION ×4 (03:09→20:11)
[2022-02-11 03:47] LABS: ABG PCO2 44.1 mmHg (35-45); ABG PH Result 7.56 (7.35-7.45); Arterial Blood Gas Hematocrit 38.6 % (37-47); Base Excess ABG 15.6 mmol/L (-2.0-2.0); Blood Gas Allen Test Pos; Blood Gas Sample Site Radial, left; Blood Gas Sample Type Arterial; Blood Gas Tidal Volume 0.35; HCO3 ABG 39.6 mmol/L (22-26); Oxygen Device VENT; PO2 ABG 58.9 mmHg (80.0-100.0)
[2022-02-11 05:49] LABS: Anion Gap 11.3 (5-19); Blood Urea Nitrogen 50 mg/dL (8-23); Calcium 7.8 mg/dL (8.5-10.5); Carbon Dioxide 37 mmol/L (22-29); Chloride 97 mmol/L (98-107); Glucose 293 mg/dL (65-115); Osmolality Calculated 316 mOsm/kg (285-295); Potassium 4.3 mmol/L (3.5-5.1); Sodium 141 mmol/L (136-145)
[2022-02-11 05:57] LABS: Glucose Point of Care 155 mg/dL (70-110)
[2022-02-11 05:57] LABS: Glucose Point of Care 76 mg/dL (70-110)
[2022-02-11 05:57] LABS: Glucose Point of Care 208 mg/dL (70-110)
[2022-02-11 05:57] LABS: Glucose Point of Care 288 mg/dL (70-110)
[2022-02-11 05:57] LABS: Glucose Point of Care 142 mg/dL (70-110)
[2022-02-11] MEDS: budesonide 0.5 mg/2 mL Neb 0.25 MG INHALATION ×2 (07:26→20:11)
[2022-02-11 07:35] LABS: Glucose Point of Care 84 mg/dL (70-110)
--- NOTE | 2022-02-11 07:58 | XRR_ITS ---
PROCEDURE INFORMATION: Exam: XR Chest Exam date and time: 02/11/2022 9:26 AM Age: 87 years old Clinical indication: Device placement; Ett placement (vent status); Additional info: Ng tube/ intubated TECHNIQUE: Imaging protocol: Radiologic exam of the chest. Views: 1 view. COMPARISON: CR XR chest 1V portable [id number] 02/09/2022 7:58 AM FINDINGS: Lungs: There is interstitial congestion left lower lobe stable since prior Prominent right hilar vascular congestion stable since prior No consolidation. Pleural spaces: Unremarkable. No pleural effusion. No pneumothorax. Heart/Mediastinum: Unremarkable. No cardiomegaly. Bones/joints: Unremarkable. Cardiac device left anterior chest in good position. Endotracheal tube is 3.8 cm above the raya. Right central line extends into the SVC. NG tube is in the stomach. XR/XR chest 1V portable [id number] IMPRESSION: 1. No acute findings. 2. Stable left lower lobe interstitial congestion. 3. Right hilar vascular congestion. 4. Lines and tubes are in good position 5. Cardiac device left anterior chest in good position
[2022-02-11] MEDS: enoxaparin 80 mg/0.8 mL Syringe SUBCUT ×2 (08:01→20:04)
[2022-02-11 08:42] LABS: Glucose Point of Care 138 mg/dL (70-110)
[2022-02-11] MEDS: FUROsemide 10 mg/mL SDV 4mL 40 MG IVP (09:55)
[2022-02-11] MEDS: sennosides-docusate Tablet 1 TAB PO (09:58)
--- NOTE | 2022-02-11 10:31 | PC.NURSE ---
Dr. Wiley gave order to turn off insulin drip and tpn
--- NOTE | 2022-02-11 11:10 | P.PN_ITS ---
Subjective Subjective: Negative fluid balance TPN and insulin to be turned off this morning Low sugar noted Insulin drip is turned off She is hemodynamically stable FiO2 50% She is opening her eyes however is not able to follow commands yet We will do weaning trial Vitals/I&O/Wt Last Vital Signs Temp 98.3 F 02/11/22 04:00 Pulse 60 02/11/22 10:30 Resp 31 H 02/11/22 09:06 BP 156/72 02/11/22 10:30 Pulse Ox 90 02/11/22 10:30 O2 Del Method 02/11/22 07:28 O2 Flow Rate 15 01/30/22 10:45 FiO2 50 02/11/22 09:06 02/10/22 02/11/22 02/11/22 22:59 06:59 14:59 Intake Total 830.404 / 888.603 Output Total 940 / 940 650 / 1590 Balance -109.596 / -51.397 -650 / -701.397 Weight last 48 hrs Weight 81.374 kg Weight 81.374 kg Physical Exam Narrative: Patient looks euvolemic Opening eyes Not following commands Able to shrug her shoulders moving her upper extremities and move her legs Not able to follow commands appropriately Afebrile FiO2 50% PEEP 10 SIMV Pupils are reactive to light Abdomen soft however bowel sounds are sluggish Urinary Catheter Management: Demarco: Cath Placed During This Visit: yes Reason for Continuing Indwelling Catheter: Accurate Measurement of Urinary Output in Critically Ill Patients Urinary Catheter Date of Insertion: 01/30/22 Urinary Catheter Time of Insertion: 23:00 Data : 02/08/22 03:40 02/12/22 02:39 A&P Assessment and plan (1) Hyperglycemia: (2) Pulmonary embolism: (3) Cardiomyopathy: (4) Acute respiratory failure with hypoxia: (5) Hypoxia: (6) COVID: Plan COVID-19 related hypoxia She has been off sedation for more than 72 hours Plan to extubate her today she is opening her eyes however not able to follow commands Moving her extremities Afebrile FiO2 50% Off Levophed Weaning trial today if that is successful we might be able to extubate we will keep following along Turn off TPN and insulin drip low blood sugar noted this morning IV antibiotics discontinued DNR/DNI Acute PE currently on therapeutic Lovenox Was examined multiple times She was not able to follow commands Decision was made to start Precedex and keep her intubated Attestations Medical Necessity Statement*: Do weaning trial today Critical Care Time: 35 Coding Level of Care Code 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
[2022-02-11 11:52] LABS: Prolactin 16.89 ng/mL (4.8-23.3)
[2022-02-11 12:18] LABS: Glucose Point of Care 183 mg/dL (70-110)
--- NOTE | 2022-02-11 13:17 | PC.NURSE ---
Rt placed patient on CPAP on vent, patient opens eyes and occasionally moves legs though difficult to determine if it is per commands. RT to switch patient back to vent support per Dr. Wiley
[2022-02-11] MEDS: lanolin oint 7 gm 1 APPLIC TOPICAL (13:31)
--- NOTE | 2022-02-11 16:55 | PC.NURSE ---
Patient restless, Dr. Wiley gave order for precedex drip
[2022-02-11] MEDS: dexmedeTOMIDine 0.9 % NaCL 400 MCG/100 ML PREMIX 12.21 MCG IV (17:36)
[2022-02-11] MEDS: atorvastatin 40 mg Tablet PO (20:04)
[2022-02-11] MEDS: acetaminophen 500 mg Tablet PO (22:04)
[2022-02-12] VITALS (61 sets, daily range): BP systolic 97–164; BP diastolic 39–93; PULSE 55–87; RESP 16–35; TEMP 37–38.6; O2SAT 82–94; BMI 35.0
[2022-02-12] MEDS: dexmedeTOMIDine 0.9 % NaCL 400 MCG/100 ML PREMIX 12.21 MCG IV (00:08)
[2022-02-12] MEDS: ipratropium-albuterol 3 mL Neb INHALATION ×4 (02:46→20:04)
[2022-02-12 03:57] LABS: Anion Gap 14.5 (5-19); Blood Urea Nitrogen 52 mg/dL (8-23); Calcium 7.7 mg/dL (8.5-10.5); Carbon Dioxide 33 mmol/L (22-29); Chloride 98 mmol/L (98-107); Glucose 310 mg/dL (65-115); Osmolality Calculated 320 mOsm/kg (285-295); Potassium 3.5 mmol/L (3.5-5.1); Sodium 142 mmol/L (136-145)
[2022-02-12] MEDS: acetaminophen 500 mg Tablet PO (04:06)
[2022-02-12] MEDS: budesonide 0.5 mg/2 mL Neb 0.25 MG INHALATION ×2 (07:52→20:04)
[2022-02-12] MEDS: piperacillin-tazobactam 3.375 GM in sodium chloride 0.9% (plus) 50 ML IV ×3 (08:01→22:59)
[2022-02-12] MEDS: sennosides-docusate Tablet 1 TAB PO (08:02)
[2022-02-12] MEDS: enoxaparin 80 mg/0.8 mL Syringe SUBCUT ×2 (08:02→19:48)
[2022-02-12] MEDS: FUROsemide 10 mg/mL SDV 4mL 60 MG IVP (08:02)
--- NOTE | 2022-02-12 10:02 | PM.PN ---
Subjective Subjective: Patient is intubated Off Precedex Overnight febrile events noted Started her on Zosyn Family is leaning towards taking the risk of extubating her and in case of further worsening they might opt for comfort care did not want to send her to LTAC Her son wanted to discuss with his brother Vitals/I&O/Wt Last Vital Signs Temp 101.4 F H 02/12/22 04:00 Pulse 60 02/12/22 09:00 Resp 35 H 02/12/22 07:55 BP 147/55 02/12/22 09:00 Pulse Ox 91 02/12/22 09:00 O2 Del Method 02/12/22 07:52 O2 Flow Rate 15 01/30/22 10:45 FiO2 50 02/12/22 07:55 02/11/22 02/12/22 02/12/22 22:59 06:59 14:59 Intake Total 113.681 / 113.681 Output Total 800 / 800 400 / 1200 Balance -800 / -800 -286.319 / -1086.319 Weight last 48 hrs Weight 81.374 kg Weight 81.374 kg Physical Exam Narrative: Intubated Facial grimacing to painful stimuli Not able to follow commands FiO2 50% SIMV Minute ventilation 10-11 Blood pressure stable Off TPN insulin drip Sluggish bowel sounds Assisted bilateral breath sounds Paced rhythm Urinary Catheter Management: Demarco: Cath Placed During This Visit: yes Reason for Continuing Indwelling Catheter: Accurate Measurement of Urinary Output in Critically Ill Patients Urinary Catheter Date of Insertion: 01/30/22 Urinary Catheter Time of Insertion: 23:00 Data : 02/08/22 03:40 02/12/22 02:39 A&P Assessment and plan (1) Hyperglycemia: (2) Pulmonary embolism: (3) Cardiomyopathy: (4) Acute respiratory failure with hypoxia: (5) Hypoxia: (6) COVID: (7) Atrial fibrillation: (8) Cardiomyopathy: Qualifiers: Cardiomyopathy type: ischemic Qualified Code(s): I25.5 - Ischemic cardiomyopathy (9) Pacemaker: Plan Persistent hypoxia She has been off sedation for last 4 to 5 days She does show minimal movement and facial grimacing to painful stimuli however not able to open eyes completely and follow commands Family is leaning towards extubating her to nasal cannula if possible did not want trach LTAC or PEG tube placement Will revisit with the family today In case of further worsening they will offer comfort care Did not want us to reintubate her in case of any concern for airway protection after extubation today TPN has been turned off Off insulin drip Febrile events noted: We will do urine analysis, sputum analysis, another chest x-ray, start on Zosyn concern for ventilator associated pneumonia Right arm PICC line Full code PE currently on therapeutic Lovenox Paced rhythm DNR/DNI No bowel movement since intubation Attestations Medical Necessity Statement*: Continue ICU management Critical Care Time: 30 minutes Coding Level of Care Code Acute Tracer Bullet Charging Machine Operator for Chg Fwd Diagnoses Hyperglycemia R73.9 Pulmonary embolism I26.99 Cardiomyopathy I42.9 Acute respiratory failure with hypoxia J96.01 Hypoxia R09.02 COVID U07.1 Atrial fibrillation I48.91 Cardiomyopathy I25.5 Cardiomyopathy type: ischemic Pacemaker Z95.0
--- NOTE | 2022-02-12 10:06 | XRR_ITS ---
PROCEDURE INFORMATION: Exam: XR Chest Exam date and time: 02/12/2022 10:10 AM Age: 87 years old Clinical indication: Condition or disease; Lung condition and disease; Pneumonia; Fever; Additional info: Pneumonia, fever TECHNIQUE: Imaging protocol: Radiologic exam of the chest. Views: 1 view. COMPARISON: CR XR chest 1V portable [id number] 02/11/2022 9:26 AM FINDINGS: Tubes, catheters and devices: Cardiac device overlying the left chest. Endotracheal tube approximately 2.5 cm above the raya. Right-sided PICC line noted with the distal tip in the right atrium. Lungs: Persistent bilateral airspace opacities worsened compared to prior exam. Pleural spaces: No pneumothorax. No large pleural effusion. Heart/Mediastinum: The cardiomediastinal silhouette is within normal limits. Bones/joints: Unremarkable. XR/XR chest 1V portable [id number] IMPRESSION: Persistent bilateral airspace opacities worsened compared to prior exam.
[2022-02-12] MEDS: ketorolac 30 mg/mL INJ 15 MG IVP (10:16)
--- NOTE | 2022-02-12 10:23 | PC.OT ---
OT EVALUATION ORDERS RECEIVED. OT EVAL ATTEMPTED. PATIENT BARELY OPENS ONE EYE AND DOES NOT RESPOND TO VERBALIZATION BY THERAPIST. WILL ATTEMPT AGAIN AT A LATER TIME.
--- NOTE | 2022-02-12 10:27 | PC.NURSE ---
Dr. Wiley at bedside eairler this shift, family decided to extubate later today
--- NOTE | 2022-02-12 10:56 | PC.NURSE ---
Family informed this nurse they are ready to extubate patient and if she takes a turn for the worse to be made comfort care, Dr. Wiley was notified and approved
[2022-02-12] MEDS: vancomycin 1,000 MG in sodium chloride 0.9% 250 ML 250 MG IV (11:05)
--- NOTE | 2022-02-12 11:16 | PC.NURSE ---
Patient extubated to HF per RT. Dr. Wiley at bedside
--- NOTE | 2022-02-12 12:13 | PC.CHAP ---
Pastoral Care Encounter/Spiritual Assessment Type of Contact [] Declined naturopathic physician visit [] Patient/Family/Request visit [] Outpatient visit [] Follow-up visit [] Physician referral [] Code/Alert [x] Routine visit [] Staff referral [] Actively dying [] Patient sleeping [x] Family support [] [] Out of room [] Palliative care [] [] Receiving care in room [] Pre-surgical visit [] Trauma [] Long length of stay [x] ICU visit [x Other: taken off vent.. patient not responding with speech, or visual contact..... Relational/Emotional Strength [] Patient feels connected with others/family/visitors/staff [] Distress [] Loneliness/isolation [] Abandonment Spirituality of Patient [] Person of Marley [] Attends Restorationist of their Marley [] Believes in Prayer [] Reads Bible or Lutheran materials [] There are Spiritual issues to be addressed Caterpillar Tractor Operator Interventions [x] Prayer [] Active listening [] Non-anxious presence [] Spiritual/emotional support [] Crisis/trauma care [] Spiritual counseling [] Bereavement support [] Provided bereavement packet [] Provided Bible/devotional materials [] Provided toy/stuffed animal, coloring book to patient or family member [] Provided Communion [] Anointing/[place] [] Salvation [x] Completed spiritual assessment [] Other: Impact on Illness or Injury [] Angry [] Fearful [] Anxious [] Often cries [] Exhaustion [] Unable to work [] Unable to attend orthodoxy [] Unable to walk/stand [] Unable to read [] Unable to drive [] Unable to eat/drink [] Unable to sleep [] Unable to be with family [] Patient intubated [] Other: Summary Time spent with patient
--- NOTE | 2022-02-12 17:55 | PC.NURSE ---
Patient sats WNL on HHF, desats to 70s when she takes it off, takes off HHF frequently, does not follow commands at this time which is no change from prior to extubation
--- NOTE | 2022-02-12 21:09 | PC.NURSE ---
Addendum entered by Rafaela Huang RN 02/12/22 21:13: HHF O2 is now @70 Original Note: Contacted RT, pt SpO2 94% on HHF, repositioned pt, HOB raised, SpO2 remains 94%, RT now at bedside
--- NOTE | 2022-02-12 22:02 | PC.NURSE ---
Paused insulin drip in the MAR for 02/12/22 @1900, insulin drip was previously paused at an earlier date (see progress reports) but this was not reflected in the MAR.
[2022-02-12 22:43] LABS: Blood Urine 3+ (Negative); Glucose Urine UA Norm (Normal); Ketones Urine Negative (Negative); Protein Urine 1+ (Negative); Specific Gravity, Urine 1.015 (1.005-1.030); Urine Appearance Cloudy (CLEAR); Urine Color Yellow (Yellow); pH Urine 5 (5-7)
[2022-02-12 22:44] LABS: Add Urine Microscopic? YES; Bilirubin Urine Neg (Negative); Leukocyte Esterase Urine Negative (Negative); Nitrate Urine Negative (Negative); Urobilinogen Urine Norm (Negative)
[2022-02-12 22:45] LABS: Amorphous Sediment Urine 3+ /hpf; Bacteria Urine TRACE /hpf; Hyaline Casts Urine 0-4 /lpf; RBC Urine 15-25 /hpf (0-2); Renal Epithelial Cells Urine 0-2 /hpf; Squamous Epithelial Cell Urine 0-4 /hpf (0-5)
[2022-02-12 22:46] LABS: Add Urine Culture? No
[2022-02-13] VITALS (102 sets, daily range): BP systolic 96–175; BP diastolic 38–83; PULSE 24–89; RESP 19–94; TEMP 36.5–36.6; O2SAT 60–95
[2022-02-13] MEDS: ipratropium-albuterol 3 mL Neb INHALATION ×3 (03:01→19:52)
[2022-02-13 04:16] LABS: Eosinophils # 0.1 10^3/uL (0.0-0.8); Eosinophils % 1.4 %; Hemoglobin 12.5 g/dL (11.5-15.3); Lymphocytes # 0.3 10^3/uL (0.8-4.8); Lymphocytes % 7.8 %; Mean Corpuscular HGB Conc 29.1 g/dL (30.0-36.0); Mean Corpuscular Hemoglobin 27.2 pg (28.0-34.0); Mean Corpuscular Volume 93.5 fl (81-99); Mean Platelet Volume 12.1 fL (7.4-10.4); Monocytes # 0.2 10^3/uL (0.2-0.9); Monocytes % 6.7 %; Neutrophils # 2.99 10^3/uL (1.8-7.7); Neutrophils % 83.5 %; Nucleated Red Blood Cells % 0 %; Platelet Count 125 10^3/cmm (130-400); Red Cell Distribution Width 15.4 % (12.1-15.1); White Blood Count 3.6 10^3/uL (4.0-10.0)
[2022-02-13 04:39] LABS: Blood Urea Nitrogen 52 mg/dL (8-23); Calcium 7.8 mg/dL (8.5-10.5); Carbon Dioxide 38 mmol/L (22-29); Glucose 231 mg/dL (65-115)
[2022-02-13 04:54] LABS: Osmolality Calculated 333 mOsm/kg (285-295); Sodium 151 mmol/L (136-145)
[2022-02-13 05:01] LABS: Anion Gap 14.7 (5-19); Chloride 101 mmol/L (98-107)
[2022-02-13 05:03] LABS: Potassium 2.7 mmol/L (3.5-5.1)
[2022-02-13] MEDS: lidocaine 1% 5 ML in potassium chloride premix 100 ML 25 ML IV ×3 (05:17→23:57)
[2022-02-13] MEDS: piperacillin-tazobactam 3.375 GM in sodium chloride 0.9% (plus) 50 ML IV ×3 (06:33→23:55)
[2022-02-13] MEDS: budesonide 0.5 mg/2 mL Neb 0.25 MG INHALATION ×2 (09:04→19:52)
[2022-02-13] MEDS: FUROsemide 10 mg/mL SDV 2mL 20 MG IVP (09:06)
[2022-02-13] MEDS: enoxaparin 80 mg/0.8 mL Syringe SUBCUT ×2 (09:06→20:00)
--- NOTE | 2022-02-13 09:28 | PC.SOCIAL ---
IMM Updated Updated pt's family on IMM. No questions voiced. Provided pt a copy. Initialed, dated, & timed copy in chart.
[2022-02-13] MEDS: vancomycin 1,000 MG in sodium chloride 0.9% 250 ML 250 MG IV (11:48)
--- NOTE | 2022-02-13 12:22 | PM.PN ---
Subjective Subjective: Was extubated to heated high flow Currently she is on 70% 50 L Start TPN I have asked nurse to start TPN at 20 mL/h if stays hyperglycemia we will restart insulin drip Vitals/I&O/Wt Last Vital Signs Temp 97.7 F 02/13/22 10:00 Pulse 60 02/13/22 10:00 Resp 20 H 02/13/22 09:07 BP 162/58 02/13/22 10:00 Pulse Ox 92 02/13/22 10:00 O2 Del Method 02/13/22 10:00 O2 Flow Rate 50 02/13/22 10:00 FiO2 60 02/13/22 10:00 02/12/22 02/13/22 02/13/22 22:59 06:59 14:59 Intake Total 356.178 / 406.178 50 / 456.178 155 / 155 Output Total 525 / 525 Balance 356.178 / 406.178 -475 / -68.822 155 / 155 Weight last 48 hrs Weight 81.193 kg Weight 81.374 kg Physical Exam Narrative: To move her upper extremities but very fatigued and lethargic Not able to follow commands completely Makes eye contact but no meaningful movement of her extremities on command Family is at the bedside Clinically looks dehydrated Currently on heated high flow 70% Abdomen soft, sluggish bowel sounds Urinary Catheter Management: Demarco: Cath Placed During This Visit: yes Reason for Continuing Indwelling Catheter: Accurate Measurement of Urinary Output in Critically Ill Patients Urinary Catheter Date of Insertion: 01/30/22 Urinary Catheter Time of Insertion: 23:00 Data : 02/13/22 03:00 02/13/22 03:00 Micro: Microbiology 02/12/22 10:37 Blood Culture - Preliminary Blood NEGATIVE TO DATE 02/12/22 10:46 Blood Culture - Preliminary Blood NEGATIVE TO DATE A&P Assessment and plan (1) Hyperglycemia: (2) Pulmonary embolism: (3) Cardiomyopathy: (4) Acute respiratory failure with hypoxia: (5) Hypoxia: (6) COVID: Plan Persistent hypoxia related to COVID-19 Underlying COPD Currently on heated high flow Extubated yesterday Still not able to follow commands Repeat CT head today Hyponatremia related to overdiuresis and dehydration I will start TPN at 20 mL/h for hyperglycemia might need to continue conservative Check glucose every 4 hours for now ICU nurse has been updated We will do speech therapy once she is more alert and awake PE therapeutic Lovenox Attestations Medical Necessity Statement*: s continue ICU management Time Spent in Patient Care: 35 Coding Level of Care Code Acute Devulcanizer Operator for Chg Fwd Diagnoses Hyperglycemia R73.9 Pulmonary embolism I26.99 Cardiomyopathy I42.9 Acute respiratory failure with hypoxia J96.01 Hypoxia R09.02 COVID U07.1
--- NOTE | 2022-02-13 12:27 | CT_ITS ---
WS: [id number] CT HEAD NONCONTRAST HISTORY: confused TECHNIQUE: Contiguous axial imaging performed through the brain in 3.0 mm imaging. Bone and soft tiss ue windows. Sagittal and coronal reformats reviewed. All CT scans at [facility] use at least one of these dose optimization techniques: automated exposure control; mA and/or kV adjustment per pa tient size (includes targeted exams where dose is matched to clinical indication); or iterative recon struction. DLP: 1229.58 mGy.cm COMPARISON: 02/09/2022 No acute intracranial hemorrhage, midline shift or mass effect. Moderate atrophy and small vessel ischemic disease. Similar to the prior study. No focal loss of the sorenson-white matter differentiation. Ventricles: Normal size with no hydrocephalus. No inferior displacement of the cerebellar tonsils. Paranasal sinuses: Small amount mucoperiosteal thickening in the maxillary sinuses with mild improvem ent. Moderate improvement of the fluid in the ethmoid and sphenoid sinuses. Mastoid air cells: Mild improvement in the fluid in the mastoid air cells bilaterally. Calvarium and scalp: Skull is intact with no soft tissue edema or swelling. CT/CT head wo con* [id number] IMPRESSION: 1. Stable noncontrast head CT. No acute intracranial hemorrhage or edema. 2. Moderate atrophy and small vessel ischemic changes. 3. Partial resolution of the air-fluid levels in the sinuses and mastoid air c ells.
--- NOTE | 2022-02-13 15:12 | PC.SLP ---
Orders received, chart reviewed. Patient unable to fully participate in bedside swallowing evaluation at this time. Will continue to monitor and assess when appropriate.
[2022-02-13] MEDS: lactulose oral liq 20 gm/30 mL UDC PO (15:36)
[2022-02-13 18:12] LABS: Anion Gap 17.9 (5-19); Blood Urea Nitrogen 45 mg/dL (8-23); Calcium 7.7 mg/dL (8.5-10.5); Carbon Dioxide 33 mmol/L (22-29); Chloride 107 mmol/L (98-107); Glucose 303 mg/dL (65-115); Osmolality Calculated 343 mOsm/kg (285-295); Sodium 155 mmol/L (136-145)
[2022-02-13 18:22] LABS: Potassium 2.9 mmol/L (3.5-5.1)
[2022-02-13] MEDS: dextrose 5% + KCl 20 mEq 20 MEQ/1,000 ML BAG 100 MEQ IV (19:40)
[2022-02-13] MEDS: insulin regular-human 250 UNIT in sodium chloride 0.9% 250 ML 6.2 UNIT IV (20:00)
[2022-02-13 21:13] LABS: Glucose Point of Care 266 mg/dL (70-110)
[2022-02-13 21:28] LABS: Glucose Point of Care 290 mg/dL (70-110)
[2022-02-13 21:28] LABS: Glucose Point of Care 254 mg/dL (70-110)
[2022-02-13 23:09] LABS: Glucose Point of Care 266 mg/dL (70-110)
[2022-02-13 23:52] LABS: Blood Urea Nitrogen 46 mg/dL (8-23); Carbon Dioxide 33 mmol/L (22-29); Chloride 112 mmol/L (98-107); Glucose 188 mg/dL (65-115); Osmolality Calculated 341 mOsm/kg (285-295); Sodium 157 mmol/L (136-145)
[2022-02-14] VITALS (99 sets, daily range): BP systolic 93–160; BP diastolic 35–82; PULSE 58–75; RESP 14–32; TEMP 36.6–36.9; O2SAT 86–96; BMI 33.8
[2022-02-14 00:25] LABS: Glucose Point of Care 154 mg/dL (70-110)
[2022-02-14 00:25] LABS: Glucose Point of Care 183 mg/dL (70-110)
[2022-02-14 01:39] LABS: Glucose Point of Care 123 mg/dL (70-110)
[2022-02-14 02:12] LABS: Glucose Point of Care 138 mg/dL (70-110)
[2022-02-14 03:28] LABS: Glucose Point of Care 120 mg/dL (70-110)
--- NOTE | 2022-02-14 04:00 | XRR_ITS ---
PROCEDURE INFORMATION: Exam: XR Chest Exam date and time: 02/14/2022 4:09 AM Age: 87 years old Clinical indication: Condition or disease; Lung condition and disease; Respiratory failure; Prior surgery; Surgery type: Pacemaker; Patient HX: F/u resp failure. Patient extubated. Now on hi flow. ; Additional info: Chf TECHNIQUE: Imaging protocol: Radiologic exam of the chest. Views: 1 view. COMPARISON: CR XR chest 1V portable [id number] 02/12/2022 10:10 AM FINDINGS: Tubes, catheters and devices: Pacemaker and right PICC line again demonstrated. Interval removal of previously visualized endotracheal and feeding tubes. Lungs: Bilateral interstitial/airspace disease, with interval worsening in airspace disease. Pleural spaces: Small pleural effusions. Heart/Mediastinum: Cardiomegaly. Vasculature: Calcification of the thoracic aorta. Bones/joints: Degenerative change. XR/XR chest 1V portable [id number] IMPRESSION: Bilateral interstitial/airspace disease, with interval worsening in airspace disease.
[2022-02-14 04:11] LABS: Glucose Point of Care 122 mg/dL (70-110)
[2022-02-14 05:11] LABS: Glucose Point of Care 553 mg/dL (70-110)
[2022-02-14 05:11] LABS: Glucose Point of Care 128 mg/dL (70-110)
[2022-02-14 05:50] LABS: ABG PCO2 45.3 mmHg (35-45); ABG PH Result 7.54 (7.35-7.45); Arterial Blood Gas Hematocrit 54.1 % (37-47); Base Excess ABG 13.5 mmol/L (-2.0-2.0); Blood Gas Allen Test Pos; Blood Gas Sample Type Arterial; HCO3 ABG 38.3 mmol/L (22-26); PO2 ABG 46.6 mmHg (80.0-100.0)
[2022-02-14 05:51] LABS: Blood Gas Operator Identificat JB; Blood Gas Sample Site Brachial, right; Oxygen Device HAG
[2022-02-14 05:51] LABS: Anion Gap 11.4 (5-19); Blood Urea Nitrogen 43 mg/dL (8-23); Calcium 8.1 mg/dL (8.5-10.5); Carbon Dioxide 37 mmol/L (22-29); Chloride 114 mmol/L (98-107); Glucose 145 mg/dL (65-115); Magnesium 3.1 mg/dL (1.7-2.3); Osmolality Calculated 339 mOsm/kg (285-295); Phosphorus 1.9 mg/dL (2.5-4.5); Potassium 4.4 mmol/L (3.5-5.1); Sodium 158 mmol/L (136-145)
[2022-02-14 06:32] LABS: Glucose Point of Care 136 mg/dL (70-110)
[2022-02-14] MEDS: dextrose 5% + KCl 20 mEq 20 MEQ/1,000 ML BAG 100 MEQ IV ×2 (07:15→15:10)
[2022-02-14 07:26] LABS: Glucose Point of Care 158 mg/dL (70-110)
[2022-02-14] MEDS: piperacillin-tazobactam 3.375 GM in sodium chloride 0.9% (plus) 50 ML IV ×2 (07:53→16:19)
[2022-02-14 08:12] LABS: Glucose Point of Care 235 mg/dL (70-110)
[2022-02-14] MEDS: FUROsemide 10 mg/mL SDV 10mL 60 MG IVP (08:18)
[2022-02-14] MEDS: dextrose 5%-sod chloride 0.45% 1,000 ML 100 ML IV ×2 (08:37→17:51)
[2022-02-14] MEDS: enoxaparin 80 mg/0.8 mL Syringe SUBCUT ×2 (08:50→20:28)
[2022-02-14] MEDS: ipratropium-albuterol 3 mL Neb INHALATION ×3 (09:07→20:12)
[2022-02-14] MEDS: budesonide 0.5 mg/2 mL Neb 0.25 MG INHALATION ×2 (09:07→20:12)
[2022-02-14 09:20] LABS: Glucose Point of Care 247 mg/dL (70-110)
[2022-02-14 10:08] LABS: Glucose Point of Care 238 mg/dL (70-110)
[2022-02-14 10:36] LABS: Vancomycin Trough 7.3 ug/mL (10-15)
[2022-02-14] MEDS: vancomycin 1,000 MG in sodium chloride 0.9% 250 ML 250 MG IV ×2 (11:08→11:17)
[2022-02-14 12:20] LABS: Glucose Point of Care 189 mg/dL (70-110)
--- NOTE | 2022-02-14 12:21 | PC.CHAP ---
Pastoral Care Encounter/Spiritual Assessment Type of Contact [] Declined sinter press operator visit [] Patient/Family/Request visit [] Outpatient visit [] Follow-up visit [] Physician referral [] Code/Alert [x] Routine visit [] Staff referral [x] Actively dying [] Patient sleeping [] Family support [] [] Out of room [] Palliative care [] [] Receiving care in room [] Pre-surgical visit [] Trauma [] Long length of stay [] ICU visit [] Other: Relational/Emotional Strength [] Patient feels connected with others/family/visitors/staff [] Distress [] Loneliness/isolation [] Abandonment Spirituality of Patient [] Person of Marley [] Attends Catholic of their Marley [] Believes in Prayer [] Reads Bible or Christianity materials [] There are Spiritual issues to be addressed Operations Manager/Coordinator Interventions [x] Prayer [] Active listening [] Non-anxious presence [] Spiritual/emotional support [] Crisis/trauma care [] Spiritual counseling [] Bereavement support [] Provided bereavement packet [] Provided Bible/devotional materials [] Provided toy/stuffed animal, coloring book to patient or family member [] Provided Communion [] Anointing/[place] [] Salvation [x] Completed spiritual assessment [] Other: Impact on Illness or Injury [] Angry [] Fearful [] Anxious [] Often cries [] Exhaustion [] Unable to work [] Unable to attend denominational [] Unable to walk/stand [] Unable to read [] Unable to drive [] Unable to eat/drink [] Unable to sleep [] Unable to be with family [] Patient intubated [] Other: Summary Time spent with patient
[2022-02-14 12:32] LABS: Glucose Point of Care 169 mg/dL (70-110)
[2022-02-14 13:18] LABS: Glucose Point of Care 228 mg/dL (70-110)
--- NOTE | 2022-02-14 13:46 | PM.PN ---
Subjective Subjective: I have increased the dose of Lasix she is in positive balance X-ray showing CHF/pulm edema Her sodium has worsened I have added dextrose to her TPN Continue insulin drip She opens her eyes move her extremities does not make eye contact, no meaningful verbal response yet I did discuss poor prognosis with the family in case she is not able to eat on her own brother will discuss with rest of the family members today I did give them the option for LTAC Vitals/I&O/Wt Last Vital Signs Temp 97.8 F 02/14/22 09:15 Pulse 61 02/14/22 13:30 Resp 26 H 02/14/22 13:30 BP 117/45 02/14/22 13:30 Pulse Ox 93 02/14/22 13:30 O2 Del Method 02/14/22 13:30 O2 Flow Rate 50 02/14/22 10:52 FiO2 80 02/14/22 10:52 02/13/22 02/14/22 02/14/22 22:59 06:59 14:59 Intake Total 222.0 / 627.0 1143.632 / 1770.632 375.444 / 375.444 Output Total 800 / 800 350 / 1150 Balance -578.0 / -173.0 793.632 / 620.632 375.444 / 375.444 Weight last 48 hrs Weight 78.642 kg Weight 81.193 kg Physical Exam Narrative: Clinically patient does not look fluid overloaded FiO2 80% on heated high flow Bilateral breath sounds with crackles Abdomen soft bowel sounds sluggish Low 70 edema has improved Currently she is on heated high flow Opens eyes does not make eye contact Not able to follow commands Nonpurposeful movement of extremities Urinary Catheter Management: Demarco: Cath Placed During This Visit: yes Reason for Continuing Indwelling Catheter: Accurate Measurement of Urinary Output in Critically Ill Patients Urinary Catheter Date of Insertion: 01/30/22 Urinary Catheter Time of Insertion: 23:00 Data : 02/13/22 03:00 02/14/22 04:52 Micro: Microbiology 02/12/22 10:37 Blood Culture - Preliminary Blood NEGATIVE TO DATE 02/12/22 10:46 Blood Culture - Preliminary Blood NEGATIVE TO DATE A&P Assessment and plan (1) Hyperglycemia: (2) Pulmonary embolism: (3) Cardiomyopathy: (4) Acute respiratory failure with hypoxia: (5) Hypoxia: (6) COVID: (7) Leg swelling: (8) Hypertension: (9) Atrial fibrillation: (10) Cardiomyopathy: Qualifiers: Cardiomyopathy type: ischemic Qualified Code(s): I25.5 - Ischemic cardiomyopathy Plan COVID-19 related hypoxia Currently on heated high flow Requiring 80% X-ray showing pulm edema I have given extra dose of Lasix Unfortunately have to give her IV fluids as well because she has not been able to eat on her own she is getting dehydrated, volume depleted intravascular Added D5 to her TPN Continue insulin drip Continue therapeutic Lovenox No fever overnight Continue antibiotics Cultures negative so far Phosphorus 1.9 Potassium is normal Sodium 158 related to intravascular depletion Constipation: We will give milk of molasses enema today Guarded prognosis DNR/DNI Family meeting conducted Attestations Medical Necessity Statement*: Continue ICU management Time Spent in Patient Care: 40 Coding Level of Care Code Acute Packaging Sales Consultant for [facility] Fwd Diagnoses Hyperglycemia R73.9 Pulmonary embolism I26.99 Cardiomyopathy I42.9 Acute respiratory failure with hypoxia J96.01 Hypoxia R09.02 COVID U07.1 Leg swelling M79.89 Hypertension I10 Atrial fibrillation I48.91 Cardiomyopathy I25.5 Cardiomyopathy type: ischemic
--- NOTE | 2022-02-14 14:02 | XRR_ITS ---
PROCEDURE INFORMATION: Exam: XR Abdomen Exam date and time: 02/14/2022 2:24 PM Age: 87 years old Clinical indication: Abdominal pain; Generalized; Additional info: Assess for ileus TECHNIQUE: Imaging protocol: Radiologic exam of the abdomen. Views: Frontal supine view of the abdomen. 1 View. COMPARISON: CR XR chest 1V portable [id number] 02/14/2022 4:09 AM FINDINGS: The upper abdomen is partially obscured by superficial EKG leads. Gastrointestinal tract: Paucity of intra-abdominal bowel gas. Vasculature: Vascular calcification. Bones/joints: Degenerative change. XR/XR KUB portable [id number] IMPRESSION: Paucity of intra-abdominal bowel gas.
[2022-02-14 14:11] LABS: Glucose Point of Care 179 mg/dL (70-110)
[2022-02-14 14:45] LABS: Ammonia 10 umol/L (11-51); Sodium 151 mmol/L (136-145)
[2022-02-14 15:05] LABS: Glucose Point of Care 155 mg/dL (70-110)
[2022-02-14] MEDS: norepinephrine 8 MG in dextrose 5 % 500 ML 7.62 MG IV (15:21)
[2022-02-14 16:12] LABS: Glucose Point of Care 162 mg/dL (70-110)
--- NOTE | 2022-02-14 16:30 | PC.SLP ---
Attempted twice to see patient today, however, she remains unable to fully participate in her swallowing evaluation. Will continue to follow.
[2022-02-14 17:28] LABS: Glucose Point of Care 149 mg/dL (70-110)
[2022-02-14 18:03] LABS: Sodium 140 mmol/L (136-145)
[2022-02-14 18:24] LABS: Glucose Point of Care 150 mg/dL (70-110)
[2022-02-14 19:47] LABS: Glucose Point of Care 169 mg/dL (70-110)
[2022-02-14] MEDS: FUROsemide 10 mg/mL SDV 4mL 40 MG IVP (20:28)
[2022-02-14 22:06] LABS: Glucose Point of Care 153 mg/dL (70-110)
[2022-02-14 22:17] LABS: Glucose Point of Care 159 mg/dL (70-110)
[2022-02-15] VITALS (51 sets, daily range): BP systolic 97–151; BP diastolic 36–84; PULSE 58–67; RESP 15–40; TEMP 36.6–38.1; O2SAT 86–95
[2022-02-15 00:03] LABS: Glucose Point of Care 163 mg/dL (70-110)
[2022-02-15] MEDS: piperacillin-tazobactam 3.375 GM in sodium chloride 0.9% (plus) 50 ML IV ×4 (00:20→23:38)
[2022-02-15 00:33] LABS: Glucose Point of Care 177 mg/dL (70-110)
[2022-02-15 01:21] LABS: Glucose Point of Care 166 mg/dL (70-110)
[2022-02-15 02:10] LABS: Glucose Point of Care 137 mg/dL (70-110)
[2022-02-15] MEDS: dextrose 5% + KCl 20 mEq 20 MEQ/1,000 ML BAG 100 MEQ IV (02:17)
[2022-02-15 03:09] LABS: Glucose Point of Care 132 mg/dL (70-110)
[2022-02-15] MEDS: dextrose 5%-sod chloride 0.45% 1,000 ML 100 ML IV (04:00)
--- NOTE | 2022-02-15 04:00 | XRR_ITS ---
PROCEDURE INFORMATION: Exam: XR Chest Exam date and time: 02/15/2022 4:38 AM Age: 87 years old Clinical indication: Cardiovascular condition or disease; Congestive heart failure (chf); Other: Not specified; Prior surgery; Surgery type: Pacemaker; Patient HX: F/u for persistent resp failure. On hi flow 02. TECHNIQUE: Imaging protocol: Radiologic exam of the chest. Views: 1 view. COMPARISON: CR XR chest 1V portable [id number] 02/14/2022 4:09 AM FINDINGS: Tubes, catheters and devices: Right sided PICC is in satisfactory position, with distal tip in the RA. A cardiac pacing device is again seen projecting over the left chest. Lungs: Unchanged redistribution and indistinctness of the pulmonary vasculature, in association with haziness of the lungs and small bilateral pleural effusions, which in the setting of cardiomegaly is consistent with pulmonary edema. Pneumonia should be excluded clinically. No pneumothorax. Pleural spaces: See Lungs finding. Heart/Mediastinum: Stable cardiomediastinal silhouette. Bones/joints: Unremarkable. XR/XR chest 1V portable [id number] IMPRESSION: Persistent pulmonary edema with small bilateral pleural effusions. Pneumonia should be excluded clinically.
[2022-02-15 04:04] LABS: Anion Gap 10.8 (5-19); Blood Urea Nitrogen 26 mg/dL (8-23); Calcium 7.4 mg/dL (8.5-10.5); Carbon Dioxide 31 mmol/L (22-29); Chloride 106 mmol/L (98-107); Glucose 159 mg/dL (65-115); Osmolality Calculated 306 mOsm/kg (285-295); Potassium 3.8 mmol/L (3.5-5.1); Sodium 144 mmol/L (136-145)
[2022-02-15 04:10] LABS: Glucose Point of Care 169 mg/dL (70-110)
[2022-02-15 05:26] LABS: Glucose Point of Care 168 mg/dL (70-110)
[2022-02-15] MEDS: vancomycin 1,000 MG in sodium chloride 0.9% 250 ML 250 MG IV (06:06)
[2022-02-15 06:31] LABS: Glucose Point of Care 160 mg/dL (70-110)
[2022-02-15] MEDS: FUROsemide 10 mg/mL SDV 4mL 40 MG IVP (07:41)
[2022-02-15] MEDS: enoxaparin 80 mg/0.8 mL Syringe SUBCUT ×2 (07:41→20:03)
[2022-02-15 08:11] LABS: Glucose Point of Care 196 mg/dL (70-110)
[2022-02-15] MEDS: budesonide 0.5 mg/2 mL Neb 0.25 MG INHALATION (08:26)
[2022-02-15] MEDS: ipratropium-albuterol 3 mL Neb INHALATION (08:26)
[2022-02-15] MEDS: FUROsemide 10 mg/mL SDV 2mL 20 MG IVP (08:36)
[2022-02-15 09:31] LABS: Glucose Point of Care 182 mg/dL (70-110)
--- NOTE | 2022-02-15 09:51 | PC.CHAP ---
Pastoral Care Encounter/Spiritual Assessment Type of Contact [] Declined psychological assistant visit [] Patient/Family/Request visit [] Outpatient visit [] Follow-up visit [] Physician referral [] Code/Alert [x] Routine visit [] Staff referral [] Actively dying [] Patient sleeping [x] Family support [] [] Out of room [] Palliative care [] [] Receiving care in room [] Pre-surgical visit [] Trauma [] Long length of stay [x] ICU visit [x] Other: PT still not responding to visit... Relational/Emotional Strength [] Patient feels connected with others/family/visitors/staff [] Distress [] Loneliness/isolation [] Abandonment Spirituality of Patient [] Person of Marley [] Attends Gnosticism of their Marley [] Believes in Prayer [] Reads Bible or Pentecostal materials [] There are Spiritual issues to be addressed Field Investigator Interventions [x] Prayer [] Active listening [] Non-anxious presence [] Spiritual/emotional support [] Crisis/trauma care [] Spiritual counseling [] Bereavement support [] Provided bereavement packet [] Provided Bible/devotional materials [] Provided toy/stuffed animal, coloring book to patient or family member [] Provided Communion [] Anointing/[place] [] Salvation [x] Completed spiritual assessment [] Other: Impact on Illness or Injury [] Angry [] Fearful [] Anxious [] Often cries [] Exhaustion [] Unable to work [] Unable to attend restorationist [] Unable to walk/stand [] Unable to read [] Unable to drive [] Unable to eat/drink [] Unable to sleep [] Unable to be with family [] Patient intubated [] Other: Summary Time spent with patient
--- NOTE | 2022-02-15 10:13 | PC.SOCIAL ---
IMM Updated Updated pt's family via phone on IMM. No questions voiced. Provided pt a copy. Initialed, dated, & timed copy in chart.
[2022-02-15 10:44] LABS: Glucose Point of Care 128 mg/dL (70-110)
--- NOTE | 2022-02-15 11:09 | PC.NURSE ---
Daughter at bedside, notified nurse that they are going to go with comfort care measures but are waiting for all of the patient's family to arrive. This will likely happen tomorrow.
[2022-02-15 12:18] LABS: Glucose Point of Care 99 mg/dL (70-110)
--- NOTE | 2022-02-15 12:25 | PM.PN ---
Subjective Subjective: Her sodium has improved Discontinue D5 Continue TPN along insulin Chest x-ray does show pulm edema Increase the dose of Lasix Patient is still incoherent, opens eyes not able to follow commands Her son is in touch with other family members to discuss goals of care such as comfort care Vitals/I&O/Wt Last Vital Signs Temp 98.4 F 02/15/22 08:00 Pulse 60 02/15/22 11:10 Resp 26 H 02/15/22 11:10 BP 132/53 02/15/22 11:00 Pulse Ox 92 02/15/22 11:10 O2 Del Method 02/15/22 11:00 O2 Flow Rate 50 02/15/22 11:10 FiO2 100 02/15/22 11:10 02/14/22 02/15/22 02/15/22 22:59 06:59 14:59 Intake Total 2682.616 / 3319.367 2129.809 / 5449.176 1863.361 / 1863.361 Output Total 1300 / 1300 1150 / 2450 Balance 1382.616 / 2019.367 979.809 / 2999.176 1863.361 / 1863.361 Weight last 48 hrs Weight 83.518 kg Weight 78.642 kg Physical Exam Narrative: Nonpurposeful movement of extremities Opens eyes does not make eye contact Not able to eat on her own Abdomen has positive bowel sounds Abdomen is soft Clinically does not look fluid overloaded Bilateral breath sound with crackles Currently on heated high flow 80% 50 L Dilute urine in the bag Low extremity edema improved Urinary Catheter Management: Demarco: Cath Placed During This Visit: yes Reason for Continuing Indwelling Catheter: Accurate Measurement of Urinary Output in Critically Ill Patients Urinary Catheter Date of Insertion: 01/30/22 Urinary Catheter Time of Insertion: 23:00 Data : 02/13/22 03:00 02/15/22 03:15 A&P Assessment and plan (1) Hyperglycemia: (2) Pulmonary embolism: (3) Cardiomyopathy: (4) Acute respiratory failure with hypoxia: (5) Hypoxia: (6) COVID: (7) Atrial fibrillation: (8) Cardiomyopathy: Qualifiers: Cardiomyopathy type: ischemic Qualified Code(s): I25.5 - Ischemic cardiomyopathy (9) Pacemaker: Plan Acute PE continue therapeutic Lovenox COVID-19 persistent hypoxia currently patient is on 80% heated high flow along 50 L Chest x-ray showing pulm edema positive fluid balance I have increased the dose of Lasix Dehydration related hypernatremia: Improved discontinue D5 CT head done twice no active abnormalities noted Blood sugar within target range Currently she is on TPN and insulin drip No BM yet KUB did not show any adequate ileus or obstruction She did not respond to the enema we gave yesterday Guarded prognosis Patient has not been able to respond, she has not eaten Family might opt for comfort care Son updated DNR/DNI Attestations Medical Necessity Statement*: Guarded prognosis Time Spent in Patient Care: 30 Coding Level of Care Code Acute Features Reporter for g Fwd Diagnoses Hyperglycemia R73.9 Pulmonary embolism I26.99 Cardiomyopathy I42.9 Acute respiratory failure with hypoxia J96.01 Hypoxia R09.02 COVID U07.1 Atrial fibrillation I48.91 Cardiomyopathy I25.5 Cardiomyopathy type: ischemic Pacemaker Z95.0
--- NOTE | 2022-02-15 13:08 | PC.SLP ---
Have continued to monitor to determine if patient is able to participate in a bedside swallowing evaluation. Patient continues to be unable to participate at this time. Family is considering comfort care.
[2022-02-15 14:42] LABS: Glucose Point of Care 156 mg/dL (70-110)
[2022-02-15 16:30] LABS: Glucose Point of Care 132 mg/dL (70-110)
--- NOTE | 2022-02-15 16:49 | PC.NURSE ---
Report called to SAMUEL Barry. No further questions. Family at bedside for transfer. Patient and belongings taken to room 257-1.
[2022-02-15] MEDS: FUROsemide 10 mg/mL SDV 10mL 60 MG IVP (17:11)
--- NOTE | 2022-02-15 19:26 | PC.NURSE ---
Report taken from Araceli
[2022-02-15] MEDS: insulin glargine 100 units/1 mL 22 UNIT SUBCUT (22:00)
[2022-02-15 22:03] LABS: Glucose Point of Care 190 mg/dL (70-110)
[2022-02-15 23:00] LABS: Vancomycin Trough 21.1 ug/mL (10-15)
--- NOTE | 2022-02-15 23:44 | PC.PHAR ---
Vancomycin trough on dosage of 1000mg IVPB every 18 hours is 21.1. Dosage is reduced to 1000mg IVPB every 24 hours witth another trough to be obtained before the fourth dose at this rate.
[2022-02-16 00:39] VITALS: PULSE 60; RESP 18; TEMP 37.2; O2SAT 100
--- NOTE | 2022-02-16 00:40 | PC.NURSE ---
Patient refused due to sleeping.
[2022-02-16 01:12] LABS: Glucose Point of Care 210 mg/dL (70-110)
--- NOTE | 2022-02-16 04:00 | XR_ITS ---
WS: [id number] Portable AP semiupright chest, 02/16/2022 Clinical Data: oedema Comparison: Portable chest, 02/15/2022. Findings: The bilateral patchy pulmonary opacities have not changed. Although this could represent an unusual form of pulmonary edema, diffuse pneumonia could also cause this pattern. The heart is sligh tly enlarged. The pacemaker remains in the same position. The right PICC line has not changed. XR/XR chest 1V portable [id number] Impression: 1. No change in patchy diffuse pulmonary opacities. 2. Cardiomegaly.
[2022-02-16 04:17] LABS: Basophils % 0.6 %; Eosinophils # 0.2 10^3/uL (0.0-0.8); Eosinophils % 3.3 %; Hematocrit 39.3 % (37.0-47.0); Hemoglobin 11.4 g/dL (11.5-15.3); Lymphocytes # 0.7 10^3/uL (0.8-4.8); Lymphocytes % 11.4 %; Mean Corpuscular Hemoglobin 27.3 pg (28.0-34.0); Mean Corpuscular Volume 94.2 fl (81-99); Mean Platelet Volume 12.5 fL (7.4-10.4); Monocytes # 0.4 10^3/uL (0.2-0.9); Monocytes % 5.7 %; Neutrophils % 77.9 %; Nucleated Red Blood Cells % 0 %; Platelet Count 124 10^3/cmm (130-400); Red Blood Count 4.17 10^6/uL (4.1-5.3); Red Cell Distribution Width 15.6 % (12.1-15.1); White Blood Count 6.3 10^3/uL (4.0-10.0)
[2022-02-16 04:35] LABS: Anion Gap 14.8 (5-19); Blood Urea Nitrogen 37 mg/dL (8-23); Calcium 7.3 mg/dL (8.5-10.5); Carbon Dioxide 26 mmol/L (22-29); Chloride 105 mmol/L (98-107); Glucose 239 mg/dL (65-115); Osmolality Calculated 310 mOsm/kg (285-295); Potassium 3.8 mmol/L (3.5-5.1); Sodium 142 mmol/L (136-145)
[2022-02-16 04:55] VITALS: BP 97/60; PULSE 59; RESP 20; TEMP 38; O2SAT 94
[2022-02-16 05:41] LABS: Glucose Point of Care 217 mg/dL (70-110)
[2022-02-16] MEDS: FUROsemide 10 mg/mL SDV 10mL 60 MG IVP (06:33)
[2022-02-16] MEDS: piperacillin-tazobactam 3.375 GM in sodium chloride 0.9% (plus) 50 ML IV (06:34)
[2022-02-16 08:00] VITALS: BP 111/68; PULSE 54; PULSE 60; RESP 16; RESP 26; TEMP 36.8; O2SAT 95; O2SAT 96
[2022-02-16] MEDS: enoxaparin 80 mg/0.8 mL Syringe SUBCUT (08:29)
[2022-02-16] MEDS: vancomycin 1,000 MG in sodium chloride 0.9% 250 ML 250 MG IV (10:46)
[2022-02-16 11:39] LABS: Glucose Point of Care 249 mg/dL (70-110)
--- NOTE | 2022-02-16 11:47 | P.PN_ITS ---
Subjective Subjective: Family meeting conducted, there were about 6-8 people present who decided to pursue comfort. They do not want any IV antibiotics, TPN or insulin drip For now we will keep her on oxygen with comfort measures Vitals/I&O/Wt Last Vital Signs Temp 98.3 F 02/16/22 08:00 Pulse 60 02/16/22 08:00 Resp 16 02/16/22 08:00 BP 111/68 02/16/22 08:00 Pulse Ox 96 02/16/22 08:00 O2 Del Method 02/16/22 08:00 O2 Flow Rate 50 02/16/22 08:00 FiO2 100 02/16/22 08:00 02/15/22 02/16/22 02/16/22 22:59 06:59 14:59 Intake Total 1314.758 / 3235.948 50 / 3285.948 155 / 155 Output Total 600 / 600 500 / 1100 Balance 714.758 / 2635.948 -450 / 2185.948 155 / 155 Weight last 48 hrs Weight 80.91 kg Weight 81.012 kg Weight 83.518 kg Physical Exam Narrative: Patient does open eyes but not able to follow commands Currently 100% FiO2 heated high flow Clinically looks low extremity edema improving She is moving her extremities nonpurposefully Abdomen soft bowel sounds sluggish Neuro exam is limited She is nodding her head Able to move her extremities Not able to reciprocate Urinary Catheter Management: Demarco: Cath Placed During This Visit: yes Reason for Continuing Indwelling Catheter: Not indwelling catheter Urinary Catheter Date of Insertion: 01/30/22 Urinary Catheter Time of Insertion: 23:00 Data : 02/16/22 04:00 02/16/22 04:00 A&P Assessment and plan (1) Need for comfort care: Plan COVID-19 related hypoxia Pulm edema on chest x-ray Family had decided to pursue comfort measures They do not want IV antibiotics for TPN or insulin drip They have not made up their mind regarding heated high flow yet Will continue oxygen with comfort measures I have asked charge nurse to update palliative team to talk with the family Attestations Medical Necessity Statement*: Continue management Time Spent in Patient Care: 30 Coding Level of Care Code Acute Attorney At Law for Chg Fwd Diagnoses Need for comfort care
[2022-02-16 12:00] VITALS: BP 119/80; PULSE 60; RESP 16; TEMP 36.6; O2SAT 97
[2022-02-16 13:43] VITALS: PULSE 59; RESP 24; O2SAT 94
--- NOTE | 2022-02-16 16:16 | PM.DCS ---
Discharge Providers Date of Admission: 01/23/22 20:28 Date of Discharge: February 16, 2022 Attending Provider at Admission: Mo Wiley MD Attending Provider at Discharge: Mo Wiley MD Primary Care Provider: KENIA Jaquez Diagnoses at Discharge Discharge Diagnosis (1) Need for comfort care: Status: Acute Reason for Visit Reason for Visit: SOB/ RESPIRATORY DISTRESS Hospital Course Hospital Course 87-year-old female who was admitted for management of acute on chronic hypoxia related to COVID-19, she was BiPAP dependent, her hypoxia worsened and required intubation for cycle of proning were done with significant improvement during proning however it took us a while to wean her off ventilator and extubate her, since her extubation she has not been able to eat well, she has been kept on IV TPN throughout her hospitalization, currently she is on 100% heated high flow, mentation is fluctuant, extreme lethargic and fatigued multiple family meetings were conducted decision was made to keep her on comfort care now onwards unless she starts showing signs of improvement TPN IV insulin antibiotics were discontinued on 02/16 and she was admitted to general floor inpatient hospice service Physical Exam Narrative: Patient is more awake and alert today Able to answer a few questions She still 100% FiO2 Clinically looks dehydrated Bilateral breath sounds with rhonchi Demarco catheter draining concentrated urine Abdomen soft Family at the bedside Able to use her upper extremities However weak and lethargic Urinary Catheter Management: Demarco: Cath Placed During This Visit: yes Reason for Continuing Indwelling Catheter: Not indwelling catheter Urinary Catheter Date of Insertion: 01/30/22 Urinary Catheter Time of Insertion: 23:00 Discharge Data Studies Completed and Pending Completed Studies During Hospitalization Category Date Time Status CT head wo con* [id number] Routine Cat Scan 02/09/22 11:[address] head wo con* [id number] Routine Cat Scan 02/13/22 12:27 Completed CTA PE [CT angio chest PE protcl 88865] Routine Cat Scan 01/26/22 09:09 Completed CXRP [XR chest 1V portable [id number]] Routine Exams 02/11/22 07:58 Completed CXRP [XR chest 1V portable [id number]] Stat Exams 01/31/22 15:55 Completed XR KUB portable [id number] Routine Exams 02/14/22 14:02 Completed XR chest 1V portable [id number] AM LABS Exams 02/08/22 04:00 Completed XR chest 1V portable 55220 Routine Exams 01/29/22 11:47 Completed XR chest 1V portable [id number] Routine Exams 02/01/22 07:00 Completed XR chest 1V portable 48316 Routine Exams 02/02/22 04:41 Completed XR chest 1V portable [id number] Routine Exams 02/04/22 04:00 Completed XR chest 1V portable [id number] Routine Exams 02/05/22 06:22 Completed XR chest 1V portable [id number] Routine Exams 02/07/22 04:00 Completed XR chest 1V portable [id number] Routine Exams 02/09/22 07:52 Completed XR chest 1V portable 27827 Routine Exams 02/12/22 10:06 Completed XR chest 1V portable 17835 Routine Exams 02/14/22 04:00 Completed XR chest 1V portable [id number] Routine Exams 02/15/22 04:00 Completed XR chest 1V portable 13128 Routine Exams 02/16/22 04:00 Completed XR chest 1V portable 85088 Stat Exams 01/23/22 16:02 Completed XR chest 1V portable [id number] Stat Exams 01/31/22 12:55 Completed CV. echo complete* [id number] Routine Ultrasound 01/23/22 20:28 Completed US venous duplex lower extremity bilat [CV venous Ultrasound 01/27/22 08:51 [place] [id number]] Routine Pending at discharge Category Date Time Status EEG electroencephalogram Routine Exams 02/11/22 17:00 Ordered Arterial Blood Gas W/O Coox Timed Lab 02/01/22 23:00 Ordered Blood Culture Stat Lab 02/12/22 10:37 Results Sputum Culture and Gram Stain Routine Lab 02/12/22 10:06 Uncollected Vancomycin Trough Timed Lab 02/19/22 09:00 Ordered Radiology Impressions Chest CTA 01/26/22 09:09 IMPRESSION: 1. A few tiny filling defects in the distal RIGHT lower lobe distal pulmonary arteries suspicious for tiny pulmonary embolus. Proximal main pulmonary arteries are normal. 2. Diffuse hazy groundglass infiltrates throughout both lungs compatible with Covid 19 pneumonia. 3. Cardiomegaly with reflux into the hepatic veins suspicious for RIGHT heart dysfunction. Notified Mo Wiley MD at 01/26/2022 11:41 AM. Venous Duplex 01/27/22 08:51 IMPRESSION: No evidence of deep vein thrombosis. Head CT 02/13/22 12:27 IMPRESSION: 1. Stable noncontrast head CT. No acute intracranial hemorrhage or edema. 2. Moderate atrophy and small vessel ischemic changes. 3. Partial resolution of the air-fluid levels in the sinuses and mastoid air cells. KUB X-Ray 02/14/22 14:02 IMPRESSION: Paucity of intra-abdominal bowel gas. Chest X-Ray 02/16/22 04:00 Impression: 1. No change in patchy diffuse pulmonary opacities. 2. Cardiomegaly. Laboratory Results WBC 6.3 10^3/uL (4.0-10.0) 02/16/22 04:00 Corrected WBC Cancelled 02/01/22 03:10 RBC 4.17 10^6/uL (4.1-5.3) 02/16/22 04:00 Hgb 11.4 g/dL (11.5-15.3) L 02/16/22 04:00 Hct 39.3 % (37.0-47.0) 02/16/22 04:00 MCV 94.2 fl (81-99) 02/16/22 04:00 MCH 27.3 pg (28.0-34.0) L 02/16/22 04:00 MCHC 29.0 g/dL (30.0-36.0) L 02/16/22 04:00 RDW 15.6 % (12.1-15.1) H 02/16/22 04:00 Plt Count 124 10^3/cmm (130-400) L 02/16/22 04:00 MPV 12.5 fL (7.4-10.4) H 02/16/22 04:00 Gran % Cancelled 02/01/22 03:10 Neut % (Auto) 77.9 % 02/16/22 04:00 Lymph % (Auto) 11.4 % 02/16/22 04:00 [place] % (Auto) 5.7 % 02/16/22 04:00 Eos % (Auto) 3.3 % 02/16/22 04:00 Baso % (Auto) 0.6 % 02/16/22 04:00 Neut # (Auto) 4.90 10^3/uL (1.8-7.7) 02/16/22 04:00 Lymph # (Auto) 0.7 10^3/uL (0.8-4.8) L 02/16/22 04:00 [place] # (Auto) 0.4 10^3/uL (0.2-0.9) 02/16/22 04:00 Eos # (Auto) 0.2 10^3/uL (0.0-0.8) 02/16/22 04:00 Baso # (Auto) 0.0 10^3/uL (0.0-0.1) 02/16/22 04:00 Absolute Gran (auto) Cancelled 02/01/22 03:10 Nucleated RBC % (auto) 0 % 02/16/22 04:00 Total Counted 100 (0-100) 01/31/22 20:31 Atypical Lymphs % 0.0 % (0-5) 01/31/22 20: Absolute Neutrophils 9.5 10^3/cmm (1.4-6.5) H 01/31/22 20:31 Segmented Neutrophils 84 % 01/31/22 20:31 Abs Segm Neuts (Man) 9.0 10/cmm (1.6-7.1) H 01/31/22 20:31 Band Neutrophils 5.0 % 01/31/22 20:31 Abs Band Neuts (Man) 0.5 10^3/cmm (0.0-1.2) 01/31/22 20:31 Absolute Lymphocytes 0.4 10^3/cmm (1.2-3.4) L 01/31/22 20:31 Lymphocytes (Manual) 4 % 01/31/22 20:31 Monocytes (Manual) 2.0 % 01/31/22 20:31 Absolute Monocytes 0.2 10^3/cmm (0.1-0.6) 01/31/22 20:31 Eosinophils (Manual) 1 % 01/31/22 20: Absolute Eosinophils 0.1 10^3/cmm (0.0-0.7) 01/31/22 20:31 Basophils (Manual) 0.0 % 01/31/22 20:31 Absolute Basophils 0.0 10^3/cmm (0.0-0.2) 01/31/22 20:31 Metamyelocytes 4.0 % 01/31/22 20:31 Myelocytes 0.0 % 01/31/22 20:31 Nucleated RBCs # 0.0 /100WBC 02/16/22 04:00 Toxic Vacuolation 2+ H 01/31/22 20:31 Platelet Estimate Normal (Normal) 01/31/22 20:31 Giant Platelets 1+ H 01/31/22 20:31 Specimen Type Arterial 02/14/22 05:17 Sample Site Brachial, right 02/14/22 05:17 ABG pH 7.54 (7.35-7.45) H 02/14/22 05:17 ABG pCO2 45.3 mmHg (35-45) H 02/14/22 05:17 ABG pO2 46.6 mmHg (80.0-100.0) L 02/14/22 05:17 ABG HCO3 38.3 mmol/L (22-26) H 02/14/22 05:17 ABG O2 Saturation 92.9 02/10/22 04:02 ABG Base Excess 13.5 mmol/L (-2.0-2.0) H 02/14/22 05:17 El Test Pos 02/14/22 05:17 A-a O2 Gradient 32.0 mmHg (5-10) H 02/10/22 04:02 Hematocrit 54.1 % (37-47) H 02/14/22 05:17 Hgb O2 Saturation 91.3 % (95-100) L 02/10/22 04:02 Carboxyhemoglobin 1.2 %THgb (0.4-20.1) 02/10/22 04:02 Methemoglobin 0.5 % (0.4-1.5) 02/10/22 04:02 Total Hemoglobin 13.4 g/dL (12-16) 02/10/22 04:02 Sodium 141.0 mmol/L (131-143) 02/10/22 04:02 Potassium 3.4 mmol/L (3.5-5.0) L 02/10/22 04:02 Glucose 147.0 mg/dL (70-115) H 02/10/22 04:02 Ionized Calcium 1.1 mmol/L (1.1-1.4) 02/10/22 04:02 O2 Delivery Device Hag 02/14/22 05:17 O2 Liters/Min 50.0 % 02/14/22 05:17 FiO2 65.0 % 02/14/22 05:17 Tidal Volume 0.35 02/11/22 04:00 PEEP 10.0 cmH20 02/11/22 04:00 Machine Adjuster Helper ID Ronnie 02/14/22 05:17 Sodium 142 mmol/L (136-145) 02/16/22 04:00 Potassium 3.8 mmol/L (3.5-5.1) 02/16/22 04:00 Chloride 105 mmol/L (98-107) 02/16/22 04:00 Carbon Dioxide 26 mmol/L (22-29) 02/16/22 04:00 Anion Gap 14.8 (5-19) 02/16/22 04:00 BUN 37 mg/dL (8-23) H 02/16/22 04:00 Creatinine 1.2 mg/dL (0.5-0.9) H 02/16/22 04:00 GFR Calculation Not Reportable 02/16/22 04:00 Glucose 239 mg/dL (65-115) H 02/16/22 04:00 POC Glucose 249 mg/dL (70-110) H 02/16/22 11:08 Estimat Average Glucose 229 01/30/22 04:18 Hemoglobin A1c 9.6 % (4.0-6.0) H 01/30/22 04:18 Calculated Osmolality 310 mOsm/kg (285-295) H 02/16/22 04:00 Lactic Acid 1.6 mmol/L (0.5-2.2) 01/23/22 15:10 Calcium 7.3 mg/dL (8.5-10.5) L 02/16/22 04:00 Phosphorus 1.9 mg/dL (2.5-4.5) L 02/14/22 04:52 Magnesium 3.1 mg/dL (1.7-2.3) H 02/14/22 04:52 Total Bilirubin 0.5 mg/dL (0.15-1.2) 02/09/22 03:34 AST 31 U/L (0-32) 02/09/22 03:34 ALT 16 U/L (0-33) 02/09/22 03:34 Alkaline Phosphatase 150 U/L (35-105) H 02/09/22 03:34 Ammonia 10 umol/L (11-51) L 02/14/22 14:00 Lactate Dehydrogenase 393 U/L (135-214) H 02/03/22 08:36 Creatine Kinase 7 U/L (26-192) L 02/02/22 02:05 C-Reactive Protein 178.4 mg/L (0.0-4.9) H 01/27/22 03:46 NT-Pro-B Natriuret Pep 3022 pg/mL (0-450) H 02/02/22 02:05 Total Protein 5.5 g/dL (6.6-8.7) L 02/09/22 03:34 Albumin 2.1 g/dL (3.5-5.2) L 02/09/22 03:34 Globulin 3.4 g/dL (1.3-4.6) 02/09/22 03:34 Procalcitonin 0.75 ng/mL (0-0.5) H 02/02/22 02:05 Prolactin 16.89 ng/mL (4.8-23.3) 02/11/22 04:55 Urine Color Yellow (Yellow) 02/12/22 22:15 Urine Appearance Cloudy (CLEAR) A 02/12/22 22:15 Urine pH 5 (5-7) 02/12/22 22:15 Ur Specific [place] 1.015 (1.005-1.030) 02/12/22 22:15 Urine Protein 1+ (Negative) H 02/12/22 22:15 Urine Glucose (UA) Norm (Normal) 02/12/22 22:15 Urine Ketones Negative (Negative) 02/12/22 22:15 Urine Blood 3+ (Negative) H 02/12/22 22:15 Urine Nitrate Negative (Negative) 02/12/22 22:15 Urine Bilirubin Neg (Negative) 02/12/22 22:15 Urine Urobilinogen Norm mg/dL (Negative) 02/12/22 22:15 Ur Leukocyte Esterase Negative (Negative) 02/12/22 22:15 Urine RBC 15-25 /hpf (0-2) H 02/12/22 22:15 Urine WBC None /hpf (0-5) 02/12/22 22:15 Ur Squamous Epith Cells 0-4 /hpf (0-5) H 02/12/22 22:15 Ur Renal Epithelial Cell 0-2 /hpf 02/12/22 22:15 Amorphous Sediment 3+ /hpf 02/12/22 22:15 Urine Bacteria Trace /hpf (NONE) 02/12/22 22:15 Hyaline Casts 0-4 /lpf H 02/12/22 22:15 Vancomycin Trough 21.1 ug/mL (10-15) H 02/15/22 22:07 Coronavirus 229E (PCR) Not detected (NOT DETECT) 01/23/22 15:15 A. galactomannan Ag EIA Not detected 02/03/22 08:36 A. galactomannan Ag Idx <0.50 02/03/22 08:36 SARS-CoV-2 (PCR) Detected (NOT DETECT) A 01/23/22 15:15 Beta-(1,3)-D-Glucan <31 pg/mL 02/03/22 08:36 B-(1,3)-D-Glucan Intrp Negative 02/03/22 08:36 Vitals Last Vital Signs Temp 97.8 F 02/16/22 12:00 Pulse 59 L 02/16/22 13:43 Resp 24 H 02/16/22 13:43 BP 119/80 02/16/22 12:00 Pulse Ox 94 02/16/22 13:43 O2 Del Method 02/16/22 12:00 O2 Flow Rate 45 02/16/22 13:43 FiO2 100 02/16/22 13:43 Discharge Plan Discharge Patient Disposition: Hospice - Home Condition: Stable Prescriptions: No Action diphenhydramine HCl [Allergy (diphenhydramine)] 25 mg capsule 25 mg PO BEDTIME carvedilol 12.5 mg tablet 12.5 mg PO BID Qty: 180 2RF Eliquis 2.5 mg tablet 2.5 mg PO BID Qty: 180 2RF furosemide 40 mg tablet See Rx Instructions .ROUTE .COMPLEX Qty: 120 2RF Dose Instruction: Take 1 tablet by mouth once daily Rx Instructions: Take 1 tablet (40mg) by mouth in the morning, 1/2 tablet (20mg) at night. Nitrostat 0.4 mg Tablet, Sublingual 0.4 mg SUBLINGUAL Q5M PRN (Reason: Chest Pain) Rx Instructions: do not exceed 3 doses per episode Centrum Silver Tablet 1 tab PO QAM PreserVision AREDS-2 250-90-40-1 mg Capsule 1 tab PO BID potassium chloride 10 mEq tablet extended release 10 meq PO QAM clopidogrel 75 mg tablet 75 mg PO QAM simvastatin 80 mg tablet 80 mg PO BEDTIME Discharge Orders: Discharge Order (Routine); Ordered 02/16/22 Ordered By: Mo Wiley Referrals: Zach Mccray FNP [Primary Care Provider] - Discharge Attestations Time Spent in Discharge Care*: less than 30 min Status at Discharge: Cognitive status at discharge: cognitively intact, Behavioral status at discharge: cooperative, Quality Metrics Clinical Quality Measures [ No reported AMI, CVA or VTE this stay] Coding Level of Care Code Acute Chg DC note Diagnoses Need for comfort care
--- NOTE | 2022-02-16 17:02 | PC.NURSE ---
HOME PREFERENCE: Pt's family would like to use [facility] in [place], [place] if something were to occur over the weekend.
--- NOTE | 2022-02-16 17:21 | P.HP_ITS ---
Providers/Chief Complaint Admitting Physician: Mo Wiley MD Primary Care Provider: KENIA Jaquez Chief Complaint: SOB/ RESPIRATORY DISTRESS History of Present Illness Jennifer Quintero is a 87 year old female who was admitted to the hospital for management of COVID-19 related hypoxia, she was intubated finish 4 cycles of proning after extubation patient has not made good recovery she has not eaten in last 7 days she has been getting TPN since her intubation No meaningful recovery CT head done twice which was negative Currently she is dependent on heated high flow 100% Multiple family meetings conducted, family had decided to pursue hospice care inpatient for pain management and Review of Systems General: Reports: ROS unobtainable due to medical condition Medications/Allergies Home Medications Medication Instructions Recorded Confirmed Last Taken Type diphenhydramine HCl 25 mg capsule 25 mg PO BEDTIME 06/29/19 01/23/22 01/22/22 History (Allergy (diphenhydramine)) carvedilol 12.5 mg tablet 12.5 mg PO BID #180 tabs 06/19/21 01/23/22 01/23/22 Rx apixaban 2.5 mg tablet (Eliquis) 2.5 mg PO BID #180 tabs 07/24/21 01/23/22 01/23/22 Rx furosemide 40 mg tablet See Rx Instructions .Route 10/23/21 01/23/22 01/23/22 Rx .COMPLEX #120 tabs clopidogrel 75 mg tablet 75 mg PO QAM 01/23/22 01/23/22 01/23/22 History hhliknagwgda-melmgzlm-shrnic tablet 1 tab PO QAM 01/23/22 01/23/22 01/23/22 His tory nitroglycerin 0.4 mg sublingual 0.4 mg sublingual Q5M PRN Chest 01/23/22 01/23/22 Unknown History tablet (Nitrostat) Pain potassium chloride 10 mEq 10 meq PO QAM 01/23/22 01/23/22 01/23/22 History tablet,extended release simvastatin 80 mg tablet 80 mg PO BEDTIME 01/23/22 01/23/22 01/22/22 History vit C 250 mg-vit E 90 mg-zinc 40 1 tab PO BID 01/23/22 01/23/22 01/23/22 History mg-copper 1 fd-trolxj-vjjvil capsule (PreserVision AREDS-2) Allergies Allergy/AdvReac Type Severity Reaction Status Date / Time beet Allergy Unknown unknown Verified 01/23/22 16:30 ryan Allergy Unknown unknown Verified 01/23/22 16:30 pineapple Allergy Unknown unknown Verified 01/23/22 16:30 Sulfa (Sulfonamide Allergy Unknown Unknown Verified 01/23/22 16:30 Antibiotics) ammonia Allergy ALGY-Anaphy Verified 01/23/22 16:30 laxis chlorine Allergy Unknown Uncoded 01/23/22 16:30 PFSH Acute PFSH: Medical History Atrial fibrillation Bilateral carotid artery stenosis Bilateral high-grade carotid artery stenoses of greater than 90% with greater than 95% stenosis on the right side. CAD (coronary artery disease) Cardiomyopathy Carotid stenosis, left Hyperlipidemia Hypertension Left carotid artery stenosis Leg swelling Pacemaker Surgical History H/O cataract extraction History of hysterectomy Hx of appendectomy S/P PTCA (percutaneous transluminal coronary angioplasty) Status cardiac pacemaker Status post carotid endarterectomy Family History Grandfather Clotting disorder Bleeding disorder Mother CAD (coronary artery disease) Diabetes Stroke Sister CAD (coronary artery disease) Diabetes Lung disease Sister CAD (coronary artery disease) Daughter CAD (coronary artery disease) Lung disease Stroke Brother CAD (coronary artery disease) Lung disease Family/Other Chronic kidney disease (CKD) Diabetes Lung disease Father Cancer Lung disease Other CHF (congestive heart failure) Denies family history of Dementia Suicide Anesthesia complication Social History Smoking and tobacco status: former smoker Alcohol intake: never Lives independently: Yes Household members: children Marital status: / Vitals/I&O/Wt Last Vital Signs Temp 97.8 F 02/16/22 12:00 Pulse 59 L 02/16/22 13:43 Resp 24 H 02/16/22 13:43 BP 119/80 02/16/22 12:00 Pulse Ox 94 02/16/22 13:43 O2 Del Method 02/16/22 12:00 O2 Flow Rate 45 02/16/22 13:43 FiO2 100 02/16/22 13:43 02/16/22 02/16/22 02/16/22 06:59 14:59 22:59 Intake Total 50 / 3285.948 405 / 405 Output Total 500 / 1100 Balance -450 / 2185.948 405 / 405 Weight last 48 hrs Weight 80.91 kg Weight 81.012 kg Weight 83.518 kg Physical Exam Narrative: Look at today's progress note please Urinary Catheter Management: Demarco: Cath Placed During This Visit: yes Reason for Continuing Indwelling Catheter: Not indwelling catheter Urinary Catheter Date of Insertion: 01/30/22 Urinary Catheter Time of Insertion: 23:00 Data : 02/16/22 04:00 02/16/22 04:00 A&P Assessment and plan (1) Need for comfort care: (2) Hospice care: Plan Patient has been admitted to general inpatient hospice service driver education road instructor will round on her any acute issues will be relayed to the hospitalist team Off TPN and insulin Family might choose not to keep her on heated high flow, will discuss over the weekend Attestations Medical Necessity Statement*: On hospice Time Spent in Patient Care: 20 Coding Level of Care Code Acute Stoneworker for Chg Fwd Diagnoses Need for comfort care Hospice care Z51.5
[2022-02-16] MEDS: morphine 10 mg/0.5 mL oral liq UD SUBLINGUAL ×2 (18:31→22:15)
[2022-02-16 20:00] VITALS: PULSE 60; RESP 15; O2SAT 92
[2022-02-17] MEDS: morphine 10 mg/0.5 mL oral liq UD SUBLINGUAL ×5 (02:42→12:35)
[2022-02-17 06:10] LABS: Hepatitis B Surface AB 3.5 (11.5-1000); Hepatitis B Surface Antigen Non-Reactive (Nonreactive); Hepatitis C Virus Antibody Non-Reactive (Nonreactive)
[2022-02-17 06:13] LABS: HIV 1 & 2 Antibody Non-Reactive (Non-Reactiv); HIV 1 & 2 Antigen Non-Reactive (Non-Reactiv)
[2022-02-17 08:00] VITALS: PULSE 60; RESP 18; TEMP 36.7; O2SAT 95
--- NOTE | 2022-02-17 10:18 | PC.SOCIAL ---
IMM Updated Updated family on IMM. No questions voiced. Provided family a copy. Initialed, dated, & timed copy in chart.
--- NOTE | 2022-02-17 10:54 | P.PN_ITS ---
Subjective Subjective: Today patient is more awake and alert able to answer a few questions However extremely feet and lethargic Still 100% FiO2 Family is at the bedside She spat black dark-colored sputum when she tried to take a sip of water Vitals/I&O/Wt Last Vital Signs Temp 98.1 F 02/17/22 08:00 Pulse 60 02/17/22 08:00 Resp 18 02/17/22 08:00 BP 119/80 02/16/22 12:00 Pulse Ox 95 02/17/22 08:00 O2 Del Method 02/17/22 08:00 O2 Flow Rate 45 02/17/22 07:51 FiO2 100 02/17/22 07:51 02/16/22 02/17/22 02/17/22 22:59 06:59 14:59 Intake Total 1000 / 1405 50 / 1455 Output Total 1400 / 1400 Balance 1000 / 1405 -1350 / 55 Weight last 48 hrs Weight 82.372 kg Weight 80.91 kg Weight 81.012 kg Physical Exam Narrative: 100% FiO2 heated high flow Family at the bedside She is slightly more awake and alert today Able to use upper extremities With weak and lethargic No typical signs of stroke Abdomen soft S1, S2 Urinary Catheter Management: Demarco: Cath Placed During This Visit: yes Reason for Continuing Indwelling Catheter: Hospice/Comfort/Palliative Care Urinary Catheter Date of Insertion: 01/30/22 Urinary Catheter Time of Insertion: 23:00 Data : 02/16/22 04:00 02/16/22 04:00 Micro: Microbiology 02/12/22 10:37 Blood Culture - Final Blood NO GROWTH AFTER 5 DAYS 02/12/22 10:46 Blood Culture - Final Blood NO GROWTH AFTER 5 DAYS A&P Assessment and plan (1) Hospice care: (2) Need for comfort care: (3) Hyperglycemia: (4) Pulmonary embolism: (5) Cardiomyopathy: (6) Pacemaker: (7) Cardiomyopathy: Qualifiers: Cardiomyopathy type: ischemic Qualified Code(s): I25.5 - Ischemic cardiomyopathy (8) Atrial fibrillation: Plan Patient on comfort care Much more awake and alert and in 100% FiO2 Attestations Medical Necessity Statement*: Comfort care Time Spent in Patient Care: 10 Coding Level of Care Code Acute Head Greenskeeper for Chg Fwd Diagnoses Hospice care Z51.5 Need for comfort care Hyperglycemia R73.9 Pulmonary embolism I26.99 Cardiomyopathy I42.9 Pacemaker Z95.0 Cardiomyopathy I25.5 Cardiomyopathy type: ischemic Atrial fibrillation I48.91
[2022-02-17 11:44] VITALS: O2SAT 85
[2022-02-17] MEDS: LORazepam 2 mg/mL oral liquid (mL) SUBLINGUAL (13:20)
[2022-02-17 13:21] VITALS: RESP 25
[2022-02-17] MEDS: morphine 4 mg/mL SDV 1 mL IVP ×6 (13:21→19:19)
[2022-02-17 18:00] VITALS: RESP 24
--- NOTE | 2022-02-17 20:06 | PC.NURSE ---
Patient at 193 with second nurse verifying. Family at bedside. supervisor wet room notified. After MTS is cleared will call [facility] located in [place], [place].
--- NOTE | 2022-02-17 20:40 | PC.NURSE ---
at 193. Dr Babcock notified along with Hospice Nurse Brook. Pts belongings sent with daughters and son. Post mortem care completed with Hospice nurse. [facility] called at [phone]
--- NOTE | 2022-02-17 23:09 | PC.NURSE ---
Body released to Rob @ [phone]
--- NOTE | 2022-02-17 23:11 | PC.NURSE ---
sent with family
--- NOTE | 2022-02-18 16:37 | PM.DDS ---
Discharge Providers DDS Date of Admission: 01/23/22 20:28 Date Summary Completed: 02/20/22 Attending Provider at Admission: Mo Wiley MD Time of : 19:37 Attending Provider at Discharge: Mo Wiley MD Primary Care Provider: KENIA Jaquez DS Diagnoses Hospital Diagnoses (1) Hospice care: (2) Need for comfort care: (3) Hyperglycemia: (4) Pulmonary embolism: (5) Cardiomyopathy: (6) Pacemaker: (7) Cardiomyopathy: Qualifiers: Cardiomyopathy type: ischemic Qualified Code(s): I25.5 - Ischemic cardiomyopathy (8) Atrial fibrillation: Reason for Visit Reason for Visit SOB/ RESPIRATORY DISTRESS Summary Date and Time of Date of : 02/17/22 Time of : 19:37 Summary Summary: 87-year-old female who was admitted for management of acute on chronic hypoxia related to COVID-19, she was BiPAP dependent, her hypoxia worsened and required intubation for cycle of proning were done with significant improvement during proning however it took us a while to wean her off ventilator and extubate her, since her extubation she has not been able to eat well, she has been kept on IV TPN throughout her hospitalization, currently she is on 100% heated high flow, mentation is fluctuant, extreme lethargic and fatigued multiple family meetings were conducted decision was made to keep her on comfort care now onwards unless she starts showing signs of improvement TPN IV insulin antibiotics were discontinued on 02/16 and she was admitted to general floor inpatient hospice service Additional Data Confirmation of as documented by pronouncing clinician: no pulse, no respirations and no heart sounds Family: at bedside Additional persons at bedside: nursing staff Attending/PCP notified?: I am attending Was code activated?: No Autopsy requested?: No Advance directives?: No Hospice patient?: Yes Discharge Plan Discharge Patient Disposition: Condition: Stable DS Attestations Time Spent in /Discharge Care*: less than 30 min Quality - AMI: AMI present?: No Quality - Stroke: CVA present?: No Quality - VTE: VTE present?: No Coding Level of Care Code Acute Sr Risk Management Consultant for Chg Fwd Diagnoses Hospice care Z51.5 Need for comfort care Hyperglycemia R73.9 Pulmonary embolism I26.99 Cardiomyopathy I42.9 Pacemaker Z95.0 Cardiomyopathy I25.5 Cardiomyopathy type: ischemic Atrial fibrillation I48.91
== END 2022-02-17 22:40 | disposition expired | DRG 207 ==
LOC: ER 17:12 → MEDSURG 19:52 → ICU 01-30 23:33 → MEDSURG 02-15 16:58
PROVIDERS: Internal Medicine; Admitting Provider Internal Medicine; Emergency Provider Family Medicine; PCP Registered Nurse; Visit Provider Internal Medicine
DX: U07.1 COVID-19 (principal); I26.99 Other pulmonary embolism without acute cor pulmonale; I50.33 Acute on chronic diastolic (congestive) heart failure; J12.82 Pneumonia due to coronavirus disease 2019; J96.21 Acute and chronic respiratory failure with hypoxia; I48.11 Longstanding persistent atrial fibrillation; I13.0 Hypertensive heart and chronic kidney disease with heart failure and stage 1 through stage 4 chronic kidney disease, or unspecified chronic kidney disease; N17.9 Acute kidney failure, unspecified; E87.1 Hypo-osmolality and hyponatremia; I65.23 Occlusion and stenosis of bilateral carotid arteries; I25.10 Atherosclerotic heart disease of native coronary artery without angina pectoris; Z95.5 Presence of coronary angioplasty implant and graft; I25.5 Ischemic cardiomyopathy; E78.5 Hyperlipidemia, unspecified; N18.9 Chronic kidney disease, unspecified; Z95.0 Presence of cardiac pacemaker; Z87.891 Personal history of nicotine dependence; F41.9 Anxiety disorder, unspecified; E86.0 Dehydration; Z51.5 Encounter for palliative care; Z66 Do not resuscitate; E87.6 Hypokalemia; R04.0 Epistaxis; R73.9 Hyperglycemia, unspecified; K59.00 Constipation, unspecified
CPT/HCPCS: 31500; 36415; 36416; 36569; 36592; 36600; 51702; 70450; 71045; 71275; 74018; 80048; 80051; 80053; 80202; 81001; 82140; 82330; 82550; 82803; 82805; 82962; 83036; 83605; 83615; 83735; 83880; 84100; 84145; 84146; 84295; 85007; 85025; 85027; 86140; 86706; 86803; 87040; 87070; 87086; 87150; 87205; 87305; 87340; 87449; 87635; 87641; 87806; 93005; 93306; 93970; 94002; 94003; 94640; 94660; 94799; 96365; 96372; 97110; 97116; 97161; 97167; 97530; 99285; A4570; C1751; J0692; J1650; J1815; J1885; J1940; J1956; J2270; J2310; J2543; J2704; J2920; J3010; J3370; J3480; J3490; J7050; J7131; J7626; J7799; J8540; J9352; Q9967